=== PATIENT | male | born 1950 | race Caucasian/White ===

== ENCOUNTER → 2016-11-29 | Outpatient (CLI) | payer OTHER ==
[~2016-11-29] MED LIST: AMLO-110 PO; ASPI-232 PO; CEPH500T PO; CLX20; COEN1CAP17 PO; GLC500 PO; LOSA50TA6 PO; REPA1TAB42 PO; SYN150
== END | disposition home or self-care (01) ==
LOC: C.RDSM 08:00
PROVIDERS: ATTEND Orthopaedic Surgery
DX: Z09 Encounter for follow-up examination after completed treatment for conditions other than malignant neoplasm (principal); M79.641 Pain in right hand

== ENCOUNTER → 2017-02-11 | Outpatient (CLI) | payer OTHER ==
[~2017-02-11] MED LIST changes: +REPA1TAB26 PO; -REPA1TAB42 PO
[2017-02-11 13:24] LABS: ESTIMATED AVERAGE GLUCOSE 143 mg/dl; HA1C FLAG Normal (Normal)
== END | disposition home or self-care (01) ==
LOC: C.LABBFT 10:48
PROVIDERS: ATTEND Internal Medicine Endocrinology, Diabetes & Metabolism
DX: E11.9 Type 2 diabetes mellitus without complications (principal)

== ENCOUNTER → 2017-05-02 | Outpatient (CLI) | payer OTHER ==
[2017-05-02 12:34] LABS: CALCIUM 8.8 mg/dl (8.5-10.1)
[2017-05-02 12:37] LABS: ALT/SGPT 42 U/L (12-78); AST/SGOT 16 U/L (15-37); BLOOD UREA NITROGEN 14 mg/dl (7-18); BUN/CREATININE RATIO 13.8 (10-20); CARBON DIOXIDE 28 mmol/L (21-32); CHLORIDE 108 mmol/L (98-107); CREATININE 0.98 mg/dl (0.60-1.40); GLUCOSE 151 mg/dl (70-99); POTASSIUM 4.2 mmol/L (3.5-5.1); SODIUM 141 mmol/L (136-145)
[2017-05-02 12:40] LABS: ALB/GLOB RATIO 1.3 (0.9-2); ALKALINE PHOSPHATASE 61 U/L (45-117); CHOLESTEROL 110 mg/dl (0-200); CHOLESTEROL/HDL RATIO 3.9; HDL CHOLESTEROL 28 mg/dl; LDL CHOLESTEROL CALCULATED 50 mg/dl; TRIGLYCERIDES 159 mg/dl (0-150); VERY LOW DENSITY LIPOPROT CALC 32 mg/dl
[2017-05-02 12:41] LABS: ESTIMATED AVERAGE GLUCOSE 163 mg/dl; HA1C FLAG Normal (Normal)
--- NOTE | 2017-05-07 08:42 | CODING QUERY MEDICAL NECESSITY ---
SUPPORTING DIAGNOSIS NEEDED A supporting diagnosis is required for the test/procedure performed on this patient in order for us to be reimbursed by the patient's insurance. Please provide a supporting diagnosis for the following test/procedure listed below next to the test name along with your signature. *If there is no additional diagnosis for this patient that would support the following test/procedure please document that below next to the test/procedure. Test(s)/Procedure(s) that require a supporting diagnosis: * VITAMIN D, 25-HYDROXY DIAGNOSIS: Provider Signature: Date: Thank you Sarahy Castellanos [email or web address] Information Management Once completed, please kindly fax back to [phone] For questions please call [phone]
== END | disposition home or self-care (01) ==
LOC: C.LABBFT 08:46
PROVIDERS: ATTEND Nurse Practitioner Family
DX: E11.9 Type 2 diabetes mellitus without complications (principal); E55.9 Vitamin D deficiency, unspecified

== ENCOUNTER → 2017-08-05 | Outpatient (CLI) | payer OTHER ==
[~2017-08-05] MED LIST changes: -REPA1TAB26 PO; +REPA1TAB42 PO
[2017-08-06 05:45] LABS: ESTIMATED AVERAGE GLUCOSE 151 mg/dl; HA1C FLAG Normal (Normal)
== END | disposition home or self-care (01) ==
LOC: C.LABBFT 15:34
PROVIDERS: ATTEND Nurse Practitioner Family
DX: E11.9 Type 2 diabetes mellitus without complications (principal)

== ENCOUNTER → 2017-11-29 | Outpatient (CLI) | payer OTHER ==
[~2017-11-29] MED LIST changes: +REPA1TAB26 PO; -REPA1TAB42 PO
[2017-11-29 12:52] LABS: HEMOGLOBIN A1C 6.9 % (4.5-5.6)
== END | disposition home or self-care (01) ==
LOC: C.LABBFT 09:26
PROVIDERS: ATTEND Nurse Practitioner Family
DX: E11.9 Type 2 diabetes mellitus without complications (principal)

== ENCOUNTER 2018-02-16 11:53 | Observation (INO) | payer OTHER ==
[~2018-02-16] VITALS: Ht 177.8 cm; Wt 96.5 kg
[~2018-02-16 11:53] MED LIST changes: -CLX20; +CLX20 PO
--- NOTE | 2018-02-16 12:28 | EMERGENCY ROOM VISIT NOTE ---
History Report prepared by Renee: Ethan Mccracken Under the Supervision of: Dr. Raúl De Jseus M.D. First contact with patient: 12:04 Chief Complaint: WEAKNESS Stated Complaint: WEAKNESS,NO ENERGY,UNSTEADY,NUMBNESS IN L ARM Nursing Triage Summary: pt to the ED with c/o exhausted weakness all over and numbness left arm for 4 days c/o pain all over with esphageal spasms History of Present Illness The patient is a 67 year old male who presents to the Emergency Room with complaints of constant generalized weakness and fatigue beginning 8 months ago. The patient notes that he saw his PCP last week where he had a blood test performed. He states that his PCP suggested that he visit a sleep clinic. The patient reports chest pain. Pain is located substernally, moderate nature. He believes the chest pain is possibly due to esophageal spasms which worsen when he takes antiinflammatory drugs such as Aleve. The patient reports some mild shortness of breath, needing to take deep breaths. He denies any blood in his stool or urine or any recent falls. The patient notes a history of diabetes and arthritis. Source of History: patient Onset: 8 months ago Position: other (global) Quality: other (weakness) Timing: constant Modifying Factors (Worsening): other Associated Symptoms: No chest pain, No SOB, No melena Note: Associated Symptoms: esophageal spasms, deep "sighing" breaths. Denies: Blood in urine, any recent falls. Review of Systems See HPI for pertinent positives and negatives. A total of ten systems were reviewed and were otherwise negative. Past Medical & Surgical Medical Problems: (1) Chest pain (2) Diabetic peripheral neuropathy associated with type 2 diabetes mellitus (3) Dysesthesia (4) History of diabetic ulcer of foot Family History FH: HTN (hypertension) FH: cancer FH: diabetes mellitus FH: kidney disease Social History Marital Status: Occupation Status: employed, retired Current/Historical Medications Scheduled Aspirin (Aspir-81), 81 MG PO HS Atorvastatin (Lipitor), 20 MG PO HS Cholecalciferol (Vitamin D3), 1 TAB PO QAM Citalopram (Citalopram Hydrobromide), 20 MG PO QAM Coenzyme Q10 (Ubidecarenone) (Co Q 10), 200 MG PO QAM Insulin Aspart 70/30 (Novolog Mix 70/30), 0 SC BIDM Levothyroxine Sodium (Levothyroxine Sodium), 1 TAB PO QAM Losartan Potassium (Cozaar), 50 MG PO HS Metformin HCL (Glucophage *), 1,000 MG PO BIDM Vitamin B Cmplx/Vitc/Folic Ac (Nephrocaps), 1 CAP PO QAM Allergies Coded Allergies: Sulfa Drugs (Verified Allergy, Intermediate, HIVES, 02/16/18) Physical Exam Vital Signs Date Time Temp Pulse Resp B/P (MAP) Pulse Ox O2 Delivery O2 Flow Rate FiO2 02/16/18 15:01 75 163/103 96 Room Air 02/16/18 13:35 64 151/86 96 Room Air 02/16/18 11:55 36.5 73 20 166/101 96 Physical Exam Physical Exam GENERAL: He is oriented to person, place, and time. He appears well-developed and well-nourished. He does not appear distressed. ____ HENT: Exam performed. Head: Normocephalic and atraumatic. Right Ear: External ear normal. No mastoid tenderness. Left Ear: External ear normal. No mastoid tenderness. Mouth/Throat: The oropharynx is clear and moist. No trismus in the jaw. No dental abscesses or uvula swelling. No oropharyngeal exudate or tonsillar abscesses. ____ EYES: Conjunctivae and EOM are normal. Pupils are equal, round, and reactive to light. Right eye exhibits no discharge. Left eye exhibits no discharge. No scleral icterus. ____ NECK: Normal range of motion. Neck supple. No JVD present. No spinous process tenderness present. No carotid bruit present. No rigidity. No tracheal deviation and normal range of motion present. No Brudzinski's sign and no Kernig 's sign noted. ____ CV: Normal rate, regular rhythm, normal heart sounds and intact distal pulses. There is no peripheral edema. Palpable radial pulses bue. ____ PULM/CHEST: Effort normal and breath sounds normal. No respiratory distress. No stridor. He has no wheezes. He has no rales. Chest Wall: He exhibits no tenderness. ____ ABD: The abdomen is soft. Bowel sounds are normal. He has no distension. No mass is present. There is no tenderness. There is no rebound, no guarding, no Rodriges's sign and no tenderness at McBurney's point. Rovsig negative MUSC/SKEL: Normal range of motion. There is no peripheral edema, tenderness or deformity. LYMPH: No cervical adenopathy. ____ NEURO: He is alert and oriented to person, place, and time. He has normal strength. No cranial nerve deficit or sensory deficit. Coordination and gait normal. GCS eye subscore is 4. GCS verbal subscore is 5. GCS motor subscore is 6. Cerebellar tests wnl. ____ SKIN: Skin is warm and dry. He is not diaphoretic. ____ PSYCH: He has a normal mood and affect. His behavior is normal. Judgment and thought content normal. ____ Medical Decision & Procedures ER Provider Diagnostic Interpretation: CT HEAD WITHOUT CONTRAST (CT) CLINICAL HISTORY: Weakness, fatigue, left arm numbness. COMPARISON STUDY: No previous studies for comparison. TECHNIQUE: Axial CT of the brain is performed from the vertex to the skull base. IV contrast was not administered for this examination. A dose lowering technique was utilized adhering to the principles of ALARA. CT DOSE: 687.98 mGy.cm FINDINGS: No intra or extra-axial mass lesions are visualized. There is no CT evidence of acute cortical infarction. There is no evidence of midline shift. There is no acute hemorrhage. No calvarial fractures are visualized. There is no evidence of pathologic ventricular dilatation. There is no evidence of acute sinusitis IMPRESSION: No acute intracranial findings CHEST 2 VIEWS ROUTINE CLINICAL HISTORY: weakness COMPARISON STUDY: December 2007 FINDINGS: The cardiac and mediastinal contours are normal. There is no evidence of focal pulmonary consolidation. There is no evidence of failure. No pleural effusions are visualized.[ IMPRESSION: No active disease in the chest. Electronically signed by: Juan Miguel Cordova M.D. 02/16/2018 2:31 PM Dictated Date/Time: 02/16/2018 2:31 PM Laboratory Results 02/16/18 12:40 Red Blood Count 5.02, Mean Corpuscular Volume 84.7, Mean Corpuscular Hemoglobin 30.5, Mean Corpuscular Hemoglobin Concent 36.0, Mean Platelet Volume 10.7, Neutrophils (%) (Auto) 59.9, Lymphocytes (%) (Auto) 29.3, Monocytes (%) (Auto) 6.9, Eosinophils (%) (Auto) 3.2, Basophils (%) (Auto) 0.5, Neutrophils # (Auto) 3.54, Lymphocytes # (Auto) 1.73, Monocytes # (Auto) 0.41, Eosinophils # (Auto) 0.19, Basophils # (Auto) 0.03 02/16/18 12:40 Test 02/16/18 12:31 02/16/18 12:40 02/16/18 12:59 Influenza Type A Antigen Neg for Influ A (NEG) Influenza Type B Antigen Neg for Influ B (NEG) White Blood Count 5.91 K/uL (4.8-10.8) Red Blood Count 5.02 M/uL (4.7-6.1) Hemoglobin 15.3 g/dL (14.0-18.0) Hematocrit 42.5 % (42-52) Mean Corpuscular Volume 84.7 fL (80-100) Mean Corpuscular Hemoglobin 30.5 pg (25-34) Mean Corpuscular Hemoglobin Concent 36.0 g/dl (32-36) Platelet Count 207 K/uL (130-400) Mean Platelet Volume 10.7 fL (7.4-10.4) Neutrophils (%) (Auto) 59.9 % Lymphocytes (%) (Auto) 29.3 % Monocytes (%) (Auto) 6.9 % Eosinophils (%) (Auto) 3.2 % Basophils (%) (Auto) 0.5 % Neutrophils # (Auto) 3.54 K/uL (1.4-6.5) Lymphocytes # (Auto) 1.73 K/uL (1.2-3.4) Monocytes # (Auto) 0.41 K/uL (0.11-0.59) Eosinophils # (Auto) 0.19 K/uL (0-0.5) Basophils # (Auto) 0.03 K/uL (0-0.2) RDW Standard Deviation 39.5 fL (36.4-46.3) RDW Coefficient of Variation 12.8 % (11.5-14.5) Immature Granulocyte % (Auto) 0.2 % Immature Granulocyte # (Auto) 0.01 K/uL (0.00-0.02) Anion Gap 9.0 mmol/L (3-11) Est Creatinine Clear Calc Drug Dose 89.8 ml/min Estimated GFR () 96.3 Estimated GFR (Non- 83.1 BUN/Creatinine Ratio 11.4 (10-20) Lactic Acid Level 1.1 mmol/L (0.4-2.0) Calcium Level 8.4 mg/dl (8.5-10.1) Magnesium Level 2.0 mg/dl (1.8-2.4) Total Bilirubin 1.4 mg/dl (0.2-1) Direct Bilirubin 0.2 mg/dl (0-0.2) Aspartate Amino Transf (AST/SGOT) 23 U/L (15-37) Alanine Aminotransferase (ALT/SGPT) 49 U/L (12-78) Alkaline Phosphatase 61 U/L (45-117) Total Protein 7.0 gm/dl (6.4-8.2) Albumin 3.9 gm/dl (3.4-5.0) Lipase 75 U/L (73-393) Thyroid Stimulating Hormone (TSH) 0.324 uIu/ml (0.300-4.500) Salicylates Level < 1.7 mg/dl (2.8-20) Acetaminophen Level < 2 ug/ml (10-30) Lyme Disease IgG Antibody NEG (NEG) Lyme Disease IgM Antibody NEG (NEG) Venous Blood pH 7.45 (7.36-7.41) Venous Blood Partial Pressure CO2 37 mmHg (38.0-50.0) Venous Blood Partial Pressure O2 53 mmHg Venous Blood HCO3 25 mmol/L Venous Blood Oxygen Saturation 86.8 % Venous Blood Base Excess 1.4 mEq/L Laboratory results reviewed by me ECG Per My Interpretation Indication: weakness Rate (beats per minute): 62 Findings: other (pr, qrs, and qtc intervals within normal limits. No ST elevation or depression. ) ED Course 1215: The patient was evaluated in room C08. A complete history and physical exam was performed. 1428: Vital signs stable. Labs and EKG within normal limits. Imaging within normal limits. Given the patient's reporting the chest pain and his advanced age as well as comorbidities and him not having a stress test recently, the patient will be placed in the hospital for rule out ACS. I discussed the patient's case with Dr. [facility] Hospitalist. He agrees to admit the patient. Medical Decision Vital signs stable. Labs and EKG within normal limits. Imaging within normal limits. Given the patient's reporting the chest pain and his advanced age as well as comorbidities and him not having a stress test recently, the patient will be placed in the hospital for rule out ACS. I discussed the patient's case with Dr. Patricia Casillas. He agrees to admit the patient. Medication Reconcilliation Current Medication List: was personally reviewed by me Blood Pressure Screening Patient's blood pressure: Elevated blood pressure Blood pressure disposition: Referred to PCP Consults Time Called: 1420 Consulting Physician: Dr. Patricia Casillas Returned Call: 1428 I discussed the patient's case with Dr. Patricia Casillas. He agrees to admit the patient. Impression Primary Impression: Chest pain, unspecified Additional Impression: Lethargy Scribe Attestation The scribe's documentation has been prepared under my direction and personally reviewed by me in its entirety. I confirm that the note above accurately reflects all work, treatment, procedures, and medical decision making performed by me. The chart was completed utilizing [employer] Speech voice recognition software. Grammatical errors, random word insertions, pronoun errors, and incomplete sentences are an occasional consequence of this system due to software limitations, ambient noise, and hardware issues. Any formal questions or concerns about the content, text, or information contained within the body of this dictation should be directly addressed to the physician for clarification. Departure Information Dispostion Being Evaluated By Surgeon Referrals Damien Moise M.D. (MEDICAL) (PCP) Patient Instructions My [facility] Problem Qualifiers Primary Impression: Chest pain, unspecified Chest pain type: unspecified Qualified Codes: R07.9 - Chest pain, unspecified
[2018-02-16 12:57] LABS: BASO % 0.5 %; BASO ABS # 0.03 K/uL (0-0.2); EOS % 3.2 %; EOS ABS # 0.19 K/uL (0-0.5); HEMATOCRIT 42.5 % (42-52); HEMOGLOBIN 15.3 g/dL (14.0-18.0); IG# 0.01 K/uL (0.00-0.02); LYMPH % 29.3 %; LYMPH ABS # 1.73 K/uL (1.2-3.4); MEAN CELL VOLUME 84.7 fL (80-100); MEAN CORPUSCULAR HEMOGLOBIN 30.5 pg (25-34); MEAN PLATELET VOLUME 10.7 fL (7.4-10.4); MONO % 6.9 %; MONO ABS # 0.41 K/uL (0.11-0.59); NEUT % 59.9 %; NEUT ABS # 3.54 K/uL (1.4-6.5); PLATELET COUNT 207 K/uL (130-400); RED CELL DISTRIBUTION WIDTH CV 12.8 % (11.5-14.5); RED CELL DISTRIBUTION WIDTH SD 39.5 fL (36.4-46.3); WHITE BLOOD COUNT 5.91 K/uL (4.8-10.8)
[2018-02-16 13:02] LABS: INFLUENZA B ANTIGEN Neg for Influ B (NEG)
[2018-02-16 13:14] LABS: ALBUMIN 3.9 gm/dl (3.4-5.0); ALT/SGPT 49 U/L (12-78); BLOOD UREA NITROGEN 11 mg/dl (7-18); CALCIUM 8.4 mg/dl (8.5-10.1); CARBON DIOXIDE 24 mmol/L (21-32); CREATININE 0.95 mg/dl (0.60-1.40); GLUCOSE 141 mg/dl (70-99); LIPASE 75 U/L (73-393); SODIUM 139 mmol/L (136-145)
[2018-02-16 13:19] LABS: ALKALINE PHOSPHATASE 61 U/L (45-117); AST/SGOT 23 U/L (15-37)
--- NOTE | 2018-02-16 13:22 | DIAGNOSTIC IMAGING REPORT ---
CT HEAD WITHOUT CONTRAST (CT) CLINICAL HISTORY: Weakness, fatigue, left arm numbness. COMPARISON STUDY: No previous studies for comparison. TECHNIQUE: Axial CT of the brain is performed from the vertex to the skull base. IV contrast was not administered for this examination. A dose lowering technique was utilized adhering to the principles of ALARA. CT DOSE: 687.98 mGy.cm FINDINGS: No intra or extra-axial mass lesions are visualized. There is no CT evidence of acute cortical infarction. There is no evidence of midline shift. There is no acute hemorrhage. No calvarial fractures are visualized. There is no evidence of pathologic ventricular dilatation. There is no evidence of acute sinusitis IMPRESSION: No acute intracranial findings Electronically signed by: Juan Miguel Cordova M.D. 02/16/2018 1:21 PM Dictated Date/Time: 02/16/2018 1:20 PM
[2018-02-16] MEDS ORDERED: CHOL1000 PO (13:48)
[2018-02-16] MEDS ORDERED: LEVO137T3 PO (13:48)
[2018-02-16] MEDS ORDERED: ATOR-22 PO (13:48)
[2018-02-16] MEDS ORDERED: B-CO1CAP17 PO (13:48)
[2018-02-16] MEDS ORDERED: NVLGI7030 SC (13:49)
--- NOTE | 2018-02-16 14:32 | DIAGNOSTIC IMAGING REPORT ---
CHEST 2 VIEWS ROUTINE CLINICAL HISTORY: weakness COMPARISON STUDY: December 2007 FINDINGS: The cardiac and mediastinal contours are normal. There is no evidence of focal pulmonary consolidation. There is no evidence of failure. No pleural effusions are visualized.[ IMPRESSION: No active disease in the chest. Electronically signed by: Juan Miguel Cordova M.D. 02/16/2018 2:31 PM Dictated Date/Time: 02/16/2018 2:31 PM
[2018-02-16] MEDS ORDERED: PHARMACY GLYCEMIC MGMT CONSULT STA (15:22)
[2018-02-16] MEDS ORDERED: FENTANYL CITRATE INJ 50 MCG/1 ML 2 ML VIAL IV STA ×2 (15:27→15:47)
[2018-02-16] MEDS ORDERED: GLUCOSE 10 TABS/TUBE PO PRN (15:30)
[2018-02-16] MEDS ORDERED: GLUCOSE 40% GEL 15 GM TUBE PO PRN (15:30)
[2018-02-16] MEDS ORDERED: GLUCAGON FOR INJ 1 MG VIAL SQ PRN (15:30)
[2018-02-16] MEDS ORDERED: DEXTROSE 50% 50 ML SYR IV PRN (15:30)
[2018-02-16] MEDS ORDERED: ONDANSETRON INJ 2 MG/ML 2 ML VIAL IV PRN (15:45)
[2018-02-16] MEDS ORDERED: ACETAMINOPHEN 325 MG TAB PO PRN (15:45)
--- NOTE | 2018-02-16 15:56 | History and Physical ---
History & Physical Date & Time of Service: Feb 16, 2018 at 15:39 Chief Complaint: Weakness,No Energy,Unsteady,Numbness In L Arm Primary Care Physician: Damien Moise M.D. (MEDICAL) History of Present Illness 67-year-old male with diabetes type 2 hypertension hypothyroidism and other problems noted below presenting with chest pain and fatigue. Follows with Dr. Moise for primary care. Patient has been having ongoing fatigue, low energy for the past few months worsening recently. 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 Denies fevers chills, weight loss, decreased appetite. Also reports intermittent chest pain, radiating to his neck/jaws, occurring with exertion and at rest. 2 days ago., Patient woke up with left arm numbness mostly medial left arm. He was at [employer] today and felt extremely fatigued to the point that he could not remain standing for a long time. Hence he was brought to the ER. Vital signs are stable overall. Troponins 1 negative. EKG no signs of acute ischemia ischemia. CT head negative for acute process Chest x-ray no infiltrates Hospitalist consulted for evaluation. On exam the patient is awake alert oriented 3,, comfortable Denies chest pain, shortness of breath, nausea, headache, dizziness. Left arm numbness improving. No other symptoms. Past Medical/Surgical History Medical Problems: (1) Chest pain (2) Diabetic peripheral neuropathy associated with type 2 diabetes mellitus (3) Dysesthesia (4) History of diabetic ulcer of foot Family History FH: HTN (hypertension) FH: cancer FH: diabetes mellitus FH: kidney disease Social History Smoking Status: Former Smoker Alcohol Use: socially Drug Use: none Marital Status: Occupational Status: employed, retired Allergies Coded Allergies: Sulfa Drugs (Verified Allergy, Intermediate, HIVES, 02/16/18) Home Medications Scheduled Aspirin (Aspir-81), 81 MG PO HS Atorvastatin (Lipitor), 20 MG PO HS Cholecalciferol (Vitamin D3), 1 TAB PO QAM Citalopram (Citalopram Hydrobromide), 20 MG PO QAM Coenzyme Q10 (Ubidecarenone) (Co Q 10), 200 MG PO QAM Insulin Aspart 70/30 (Novolog Mix 70/30), 0 SC BIDM Levothyroxine Sodium (Levothyroxine Sodium), 1 TAB PO QAM Losartan Potassium (Cozaar), 50 MG PO HS Metformin HCL (Glucophage *), 1,000 MG PO BIDM Vitamin B Cmplx/Vitc/Folic Ac (Nephrocaps), 1 CAP PO QAM Review of Systems Constitutional- no fever; no weight loss Eyes- no acute visual changes ENT- no sinus drainage; no pharyngitis Pulmonary- no cough, no wheezing, no shortness of breath Cardiac-(+) chest pain, no palpitations, no orthopnea, no dependent edema GI- no nausea, no vomiting, no diarrhea, no melena, no hematochezia - no dysuria, no hematuria Musculoskeletal- no arthralgias, no myalgias Derm- no rashes, no new skin lesions, no changing skin lesions Hematologic- no unusual bruising, no unusual bleeding Lymphatics- no adenopathy Endocrine- no polyuria or polydipsia; no heat or cold intolerance Neuro- no headaches, no focal neurologic symptoms Psych- no anxiety, no depression Physical Exam Vital Signs Date Time Temp Pulse Resp B/P (MAP) Pulse Ox O2 Delivery O2 Flow Rate FiO2 02/16/18 15:01 75 163/103 96 Room Air 02/16/18 13:35 64 151/86 96 Room Air 02/16/18 11:55 36.5 73 20 166/101 96 General Appearance: WD/WN, no apparent distress Head: normocephalic, atraumatic Eyes: normal inspection, PERRL, EOMI, sclerae normal ENT: normal ENT inspection, hearing grossly normal, pharynx normal Neck: supple, no adenopathy, thyroid normal, no JVD, trachea midline Respiratory/Chest: chest non-tender, lungs clear, normal breath sounds, no respiratory distress, no accessory muscle use Cardiovascular: regular rate, rhythm, no edema, no JVD, no murmur, normal peripheral pulses Abdomen/GI: normal bowel sounds, non tender, soft Back: normal inspection, no CVA tenderness Extremities/Musculoskelatal: normal inspection, no calf tenderness, no pedal edema, normal range of motion, non-tender Neurologic/Psych: intelligence consultant II-XII nml as tested, no motor/sensory deficits, alert, normal mood/affect, normal reflexes, oriented x 3 Skin: normal color, warm/dry, no rash Lymphatic: no adenopathy Diagnostics Laboratory Results Results Past 24 Hours Test 02/16/18 12:31 02/16/18 12:40 02/16/18 12:59 Range/Units Influenza Type A Antigen Neg for Influ A NEG Influenza Type B Antigen Neg for Influ B NEG White Blood Count 5.91 4.8-10.8 K/uL Red Blood Count 5.02 4.7-6.1 M/uL Hemoglobin 15.3 14.0-18.0 g/dL Hematocrit 42.5 42-52 % Mean Corpuscular Volume 84.7 80-100 fL Mean Corpuscular Hemoglobin 30.5 25-34 pg Mean Corpuscular Hemoglobin Concent 36.0 32-36 g/dl Platelet Count 207 130-400 K/uL Mean Platelet Volume 10.7 7.4-10.4 fL Neutrophils (%) (Auto) 59.9 % Lymphocytes (%) (Auto) 29.3 % Monocytes (%) (Auto) 6.9 % Eosinophils (%) (Auto) 3.2 % Basophils (%) (Auto) 0.5 % Neutrophils # (Auto) 3.54 1.4-6.5 K/uL Lymphocytes # (Auto) 1.73 1.2-3.4 K/uL Monocytes # (Auto) 0.41 0.11-0.59 K/uL Eosinophils # (Auto) 0.19 0-0.5 K/uL Basophils # (Auto) 0.03 0-0.2 K/uL RDW Standard Deviation 39.5 36.4-46.3 fL RDW Coefficient of Variation 12.8 11.5-14.5 % Immature Granulocyte % (Auto) 0.2 % Immature Granulocyte # (Auto) 0.01 0.00-0.02 K/uL Sodium Level 139 136-145 mmol/L Potassium Level 4.0 3.5-5.1 mmol/L Chloride Level 106 98-107 mmol/L Carbon Dioxide Level 24 21-32 mmol/L Anion Gap 9.0 3-11 mmol/L Blood Urea Nitrogen 11 7-18 mg/dl Creatinine 0.95 0.60-1.40 mg/dl Est Creatinine Clear Calc Drug Dose 89.8 ml/min Estimated GFR () 96.3 Estimated GFR (Non- 83.1 BUN/Creatinine Ratio 11.4 10-20 Random Glucose 141 70-99 mg/dl Lactic Acid Level 1.1 0.4-2.0 mmol/L Calcium Level 8.4 8.5-10.1 mg/dl Magnesium Level 2.0 1.8-2.4 mg/dl Total Bilirubin 1.4 0.2-1 mg/dl Direct Bilirubin 0.2 0-0.2 mg/dl Aspartate Amino Transf (AST/SGOT) 23 15-37 U/L Alanine Aminotransferase (ALT/SGPT) 49 12-78 U/L Alkaline Phosphatase 61 45-117 U/L Troponin I < 0.015 0-0.045 ng/ml Total Protein 7.0 6.4-8.2 gm/dl Albumin 3.9 3.4-5.0 gm/dl Lipase 75 73-393 U/L Thyroid Stimulating Hormone (TSH) 0.324 0.300-4.500 uIu/ml Salicylates Level < 1.7 2.8-20 mg/dl Acetaminophen Level < 2 10-30 ug/ml Venous Blood pH 7.45 7.36-7.41 Venous Blood Partial Pressure CO2 37 38.0-50.0 mmHg Venous Blood Partial Pressure O2 53 mmHg Venous Blood HCO3 25 mmol/L Venous Blood Oxygen Saturation 86.8 % Venous Blood Base Excess 1.4 mEq/L Diagnostic Radiology CHEST 2 VIEWS ROUTINE CLINICAL HISTORY: weakness COMPARISON STUDY: December 2007 FINDINGS: The cardiac and mediastinal contours are normal. There is no evidence of focal pulmonary consolidation. There is no evidence of failure. No pleural effusions are visualized.[ IMPRESSION: No active disease in the chest. [~ rep ct add3]] CT HEAD WITHOUT CONTRAST (CT) CLINICAL HISTORY: Weakness, fatigue, left arm numbness. COMPARISON STUDY: No previous studies for comparison. TECHNIQUE: Axial CT of the brain is performed from the vertex to the skull base. IV contrast was not administered for this examination. A dose lowering technique was utilized adhering to the principles of ALARA. CT DOSE: 687.98 mGy.cm FINDINGS: No intra or extra-axial mass lesions are visualized. There is no CT evidence of acute cortical infarction. There is no evidence of midline shift. There is no acute hemorrhage. No calvarial fractures are visualized. There is no evidence of pathologic ventricular dilatation. There is no evidence of acute sinusitis IMPRESSION: No acute intracranial findings EKG Sinus rhythm, normal rate, no signs of ischemia or infarct Impression Assessment and Plan 67-year-old male with history of diabetes type 2, hypertension, hypothyroidism, Presenting with fatigue and chest pain. CHEST PAIN RULE OUT ACS Risk factors: Diabetes, hypertension, former smoker Check troponins 2 more sets Check echocardiogram We will consult cardiology for possible stress test, patient may need a pharmacologic stress test as he has easy fatigability Continue aspirin, Lipitor FATIGUE Ongoing for a few months now No anemia, no signs of active infection or fever Rule out NOCTURNAL HYPOXEMIA Nocturnal pulse oximetry ordered Rule out hypothyroidism Check TSH Lyme disease Check Lyme screen DIABETES TYPE 2 Check A1c Usually on NovoLog 7030 40 units twice daily, metformin 500 twice daily-hold for now Place on insulin sliding scale Pharmacy glycemic control management consulted HYPERTENSION Stable Continue losartan 50 mg daily ANXIETY Continue citalopram 20 mg daily DVT prophylaxis SCDs for now CODE STATUS full code Disposition Pending Lives with at home Anticipate discharge home medically stable, cleared by cardiology Resuscitation Status VTE Prophylaxis Will order VTE Prophylaxis: Yes
[2018-02-16 16:41] VITALS: BP 157/87; PULSE 66; TEMP 36.6; O2SAT 96; Ht 177.8 cm; Wt 96.5 kg
[2018-02-16] MEDS ORDERED: IV FLUIDS COMPLETED PRN (17:45)
[2018-02-16] MEDS ORDERED: PHARMACY GLYCEMIC MGMT CONSULT PRN (18:00)
[2018-02-16 19:03] VITALS: BP 151/67; PULSE 68; TEMP 36.7; O2SAT 95
[2018-02-16] MEDS ORDERED: LOSARTAN POTASSIUM 50 MG TAB PO SCH (21:00)
[2018-02-16] MEDS ORDERED: ASPIRIN 81 MG ECTAB PO SCH (21:00)
[2018-02-16] MEDS ORDERED: ATORVASTATIN 20 MG TAB PO SCH (21:00)
[2018-02-16] MEDS ORDERED: INSULIN GLARGINE SOLOSTAR 100 UNITS/ML 3 ML PEN SC SCH ×3 (21:00)
[2018-02-16] MEDS: INSULIN ASPART 100 UNITS/ML 3 ML PEN SC SCH (21:00)
[2018-02-16 23:58] VITALS: BP 154/79; PULSE 66; TEMP 36.8; O2SAT 98
[2018-02-17 04:21] VITALS: BP 136/73; PULSE 60; TEMP 36.6; O2SAT 97
[2018-02-17 05:21] LABS: ALBUMIN 3.5 gm/dl (3.4-5.0); TOTAL PROTEIN 6.6 gm/dl (6.4-8.2)
[2018-02-17] MEDS ORDERED: LEVOTHYROXINE 137 MCG TAB PO SCH (06:30)
[2018-02-17 06:56] LABS: HEMOGLOBIN A1C 7.8 % (4.5-5.6)
[2018-02-17 07:32] VITALS: BP 159/88; PULSE 60; TEMP 36.4; O2SAT 97
[2018-02-17 08:00] VITALS: O2SAT 97
[2018-02-17 08:46] LABS: CALCIUM 8.7 mg/dl (8.5-10.1); CREATININE 1.01 mg/dl (0.60-1.40); POTASSIUM 4.1 mmol/L (3.5-5.1)
[2018-02-17] MEDS ORDERED: NEPHROCAPS PO SCH (09:00)
[2018-02-17] MEDS ORDERED: CITALOPRAM 20 MG TAB PO SCH (09:00)
[2018-02-17] MEDS ORDERED: INSULIN GLARGINE SOLOSTAR 100 UNITS/ML 3 ML PEN SC SCH (09:45)
--- NOTE | 2018-02-17 09:45 | Progress Note ---
Medicine Progress Note Date & Time of Visit: Feb 17, 2018 at 09:40. Subjective seen resting in bedside chair, comfortable states he feels the same, still tired denies active chest pain, dyspnea, dizziness, nausea, palpitations no fever/chills, no other symptoms Objective Last 8 Hrs Date Time Temp Pulse Resp B/P (MAP) Pulse Ox O2 Delivery O2 Flow Rate FiO2 02/17/18 07:32 36.4 60 18 159/88 (111) 97 02/17/18 04:30 Room Air 02/17/18 04:21 36.6 60 18 136/73 (94) 97 Room Air Physical Exam: General- oriented x 3, not in distress, speaks in sentences with no effort Eyes- anicteric ENT- oropharynx clear Neck- no JVD Lungs- clear breath sounds bilaterally, no rales/wheezes Heart- regular rhythm; no murmur, normal rate Abdomen- normal bowel sounds, soft, nontender,non distended Extremities- no pretibial edema, no calf tenderness; peripheral pulses intact Neuro- alert, oriented x 3; no gross focal deficits Skin- warm & dry Laboratory Results: Last 24 Hours Test 02/16/18 12:31 02/16/18 12:40 02/16/18 12:59 02/16/18 16:47 Influenza Type A Antigen Neg for Influ A Influenza Type B Antigen Neg for Influ B White Blood Count 5.91 K/uL Red Blood Count 5.02 M/uL Hemoglobin 15.3 g/dL Hematocrit 42.5 % Mean Corpuscular Volume 84.7 fL Mean Corpuscular Hemoglobin 30.5 pg Mean Corpuscular Hemoglobin Concent 36.0 g/dl Platelet Count 207 K/uL Mean Platelet Volume 10.7 fL Neutrophils (%) (Auto) 59.9 % Lymphocytes (%) (Auto) 29.3 % Monocytes (%) (Auto) 6.9 % Eosinophils (%) (Auto) 3.2 % Basophils (%) (Auto) 0.5 % Neutrophils # (Auto) 3.54 K/uL Lymphocytes # (Auto) 1.73 K/uL Monocytes # (Auto) 0.41 K/uL Eosinophils # (Auto) 0.19 K/uL Basophils # (Auto) 0.03 K/uL RDW Standard Deviation 39.5 fL RDW Coefficient of Variation 12.8 % Immature Granulocyte % (Auto) 0.2 % Immature Granulocyte # (Auto) 0.01 K/uL Sodium Level 139 mmol/L Potassium Level 4.0 mmol/L Chloride Level 106 mmol/L Carbon Dioxide Level 24 mmol/L Anion Gap 9.0 mmol/L Blood Urea Nitrogen 11 mg/dl Creatinine 0.95 mg/dl Est Creatinine Clear Calc Drug Dose 89.8 ml/min Estimated GFR () 96.3 Estimated GFR (Non- 83.1 BUN/Creatinine Ratio 11.4 Random Glucose 141 mg/dl Lactic Acid Level 1.1 mmol/L Calcium Level 8.4 mg/dl Magnesium Level 2.0 mg/dl Total Bilirubin 1.4 mg/dl Direct Bilirubin 0.2 mg/dl Aspartate Amino Transf (AST/SGOT) 23 U/L Alanine Aminotransferase (ALT/SGPT) 49 U/L Alkaline Phosphatase 61 U/L Troponin I < 0.015 ng/ml Total Protein 7.0 gm/dl Albumin 3.9 gm/dl Lipase 75 U/L Thyroid Stimulating Hormone (TSH) 0.324 uIu/ml Salicylates Level < 1.7 mg/dl Acetaminophen Level < 2 ug/ml Lyme Disease IgG Antibody NEG Lyme Disease IgM Antibody NEG Venous Blood pH 7.45 Venous Blood Partial Pressure CO2 37 mmHg Venous Blood Partial Pressure O2 53 mmHg Venous Blood HCO3 25 mmol/L Venous Blood Oxygen Saturation 86.8 % Venous Blood Base Excess 1.4 mEq/L Bedside Glucose 122 mg/dl Test 02/16/18 18:25 02/16/18 19:56 02/17/18 00:00 02/17/18 00:21 Troponin I < 0.015 ng/ml < 0.015 ng/ml Bedside Glucose 173 mg/dl Urine Color YELLOW Urine Appearance CLEAR Urine pH 6.5 Urine Specific [employer] 1.019 Urine Protein NEG Urine Glucose (UA) NEG Urine Ketones NEG Urine Occult Blood NEG Urine Nitrite NEG Urine Bilirubin NEG Urine Urobilinogen NEG Urine Leukocyte Esterase NEG Test 02/17/18 04:39 02/17/18 07:15 02/17/18 08:03 02/17/18 09:26 Estimated Average Glucose 177 mg/dl Hemoglobin A1c 7.8 % Total Bilirubin 1.8 mg/dl Direct Bilirubin 0.3 mg/dl Aspartate Amino Transf (AST/SGOT) 23 U/L Alanine Aminotransferase (ALT/SGPT) 49 U/L Alkaline Phosphatase 59 U/L Total Protein 6.6 gm/dl Albumin 3.5 gm/dl 25-Hydroxy Vitamin D Total 20.5 ng/ml Bedside Glucose 151 mg/dl Sodium Level 137 mmol/L Potassium Level 4.1 mmol/L Chloride Level 105 mmol/L Carbon Dioxide Level 24 mmol/L Anion Gap 8.0 mmol/L Blood Urea Nitrogen 13 mg/dl Creatinine 1.01 mg/dl Est Creatinine Clear Calc Drug Dose 83.9 ml/min Estimated GFR () 89.4 Estimated GFR (Non- 77.1 BUN/Creatinine Ratio 12.6 Random Glucose 166 mg/dl Calcium Level 8.7 mg/dl Assessment & Plan 67-year-old male with history of diabetes type 2, hypertension, hypothyroidism, Presenting with fatigue and chest pain. CHEST PAIN ACUTE CORONARY SYNDROME RULED OUT Risk factors: Diabetes, hypertension, former smoker troponins x 3 negative Status post treadmill exercise stress test negative Cardiology consulted Dr. Parra/ALBA Williamson No further cardiac testing Continue aspirin, Lipitor FATIGUE Ongoing for a few months now No anemia, no signs of active infection or fever Possible FREDRICK Nocturnal Hypoxemia ruled out Nocturnal pulse oximetry ordered: does not meet criteria for oxygen supplement overnight scheduled of Sleep Study in April 2018, will be helpful if patient can get an earlier scheduled for the sleep study Hypothyroidism ruled out History of Thyroidectomy, on Levothyroxine 137 mcg daily TSH and free T4 normal Lyme disease ruled out Lyme screen negative Possible related to Celexa? Patient is on Celexa 20 mg p.o. daily May need to transition him to another medication for mood He may also need testosterone level studies Possible workup for underlying malignancy as well although patient not reporting weight loss, anorexia, fevers, night sweats DIABETES TYPE 2 a1c: 7.8 Usually on NovoLog 7030 40 units twice daily, metformin 500 twice daily-hold for now Pharmacy glycemic control management consulted Continue outpatient monitoring and further management HYPERTENSION Stable Losartan 50 mg daily ANXIETY Question whether chronic fatigue may be secondary to Celexa Patient is on Celexa 20 mg p.o. daily May need to transition him to another medication for mood VITAMIN D DEFICIENCY Vitamin D level 20 Increase vitamin D to 2000 units daily Repeat in 4 weeks Disposition Discharge home today Follow-up with primary care physician on February Current Inpatient Medications: Current Inpatient Medications Medications (Trade) Dose Ordered Sig/Tuyet Route Start Time Stop Time Status Last Admin Dose Admin Insulin Aspart (novoLOG ASPART) SLIDING SCALE If C... ACHS SC 02/16/18 16:30 03/18/18 16:29 Glucose (Glucose 40% Gel) 15-30 GRAMS 15 GRAMS... UD PRN PO 02/16/18 15:30 03/18/18 15:29 Glucose (Glucose Chew Tab) 4-8 Tablets 4 Tabl... UD PRN PO 02/16/18 15:30 03/18/18 15:29 Dextrose (Dextrose 50% 50ML Syringe) 25-50ML OF 50% DW IV FOR... UD PRN IV 02/16/18 15:30 03/18/18 15:29 Glucagon (Glucagon Inj) 1 mg UD PRN SQ 02/16/18 15:30 03/18/18 15:29 Aspirin (Ecotrin Tab) 81 mg HS PO 02/16/18 21:00 03/18/18 20:59 02/16/18 21:07 81 MG Atorvastatin Calcium (Lipitor Tab) 20 mg HS PO 02/16/18 21:00 03/18/18 20:59 02/16/18 21:07 20 MG Citalopram Hydrobromide (celeXA TAB) 20 mg QAM PO 02/17/18 09:00 03/19/18 08:59 Levothyroxine Sodium (Synthroid Tab) 137 mcg DAILYBB PO 02/17/18 06:30 03/19/18 06:59 02/17/18 05:53 137 MCG Losartan Potassium (coZAAR TAB) 50 mg HS PO 02/16/18 21:00 03/18/18 20:59 02/16/18 21:07 50 MG Vitamin B Complex/ Vit C/Folic Acid (Nephrocaps) 1 cap QAM PO 02/17/18 09:00 03/19/18 08:59 Acetaminophen (Tylenol Tab) 650 mg Q4H PRN PO 02/16/18 15:45 03/18/18 15:44 Ondansetron HCl (Zofran Inj) 4 mg Q6H PRN IV 02/16/18 15:45 03/18/18 15:44 Miscellaneous (Iv Fluids Completed) 1 ea PRN PRN N/A 02/16/18 17:45 02/16/19 17:44 Miscellaneous Information (Consult Glycemic Management Pharmacy) 1 ea UD PRN N/A 02/16/18 18:00 03/18/18 17:59 Insulin Glargine (Lantus Solostar Pen) BID SC 02/17/18 09:45 03/19/18 09:44
[2018-02-17] MEDS ORDERED: INSULIN GLARGINE SOLOSTAR 100 UNITS/ML 3 ML PEN SC STA (09:47)
[2018-02-17] MEDS: INSULIN ASPART 100 UNITS/ML 3 ML PEN SC SCH (10:00)
--- NOTE | 2018-02-17 10:16 | Pharmacy Progress Note ---
Glycemic Control Intl Consult Date of Service Feb 17, 2018. Scope Glycemic Pharmacist consulted by Dr Gomez on 02/17/18 for glycemic control and to write orders per [facility] inpatient glycemic control protocol Objective Weight (Kilograms): 96.500 Accuchecks BSG (last 24hrs): Test 02/16/18 12:40 02/16/18 16:47 02/16/18 19:56 02/17/18 07:15 Random Glucose 141 mg/dl (70-99) Bedside Glucose 122 mg/dl (70-99) 173 mg/dl (70-99) 151 mg/dl (70-99) Test 02/17/18 08:03 Random Glucose 166 mg/dl (70-99) Laboratory Data (last 24hrs) Test 02/16/18 12:40 02/17/18 04:39 02/17/18 08:03 Anion Gap 9.0 mmol/L 8.0 mmol/L BUN/Creatinine Ratio 11.4 12.6 Blood Urea Nitrogen 11 mg/dl 13 mg/dl Creatinine 0.95 mg/dl 1.01 mg/dl Potassium Level 4.0 mmol/L 4.1 mmol/L Sodium Level 139 mmol/L 137 mmol/L White Blood Count 5.91 K/uL Red Blood Count 5.02 M/uL Hemoglobin 15.3 g/dL Hematocrit 42.5 % Mean Corpuscular Volume 84.7 fL Mean Corpuscular Hemoglobin 30.5 pg Mean Corpuscular Hemoglobin Concent 36.0 g/dl Platelet Count 207 K/uL Mean Platelet Volume 10.7 fL Neutrophils (%) (Auto) 59.9 % Lymphocytes (%) (Auto) 29.3 % Monocytes (%) (Auto) 6.9 % Eosinophils (%) (Auto) 3.2 % Basophils (%) (Auto) 0.5 % Neutrophils # (Auto) 3.54 K/uL Lymphocytes # (Auto) 1.73 K/uL Monocytes # (Auto) 0.41 K/uL Eosinophils # (Auto) 0.19 K/uL Basophils # (Auto) 0.03 K/uL Hemoglobin A1c 7.8 % HbA1c Test 02/17/18 04:39 Hemoglobin A1c 7.8 % (4.5-5.6) H Recent Pertinent Medications Outpatient Anti-diabetic Regimen: * Novolog 70/30 40units BID * Metformin 1000mg BIDM * A1c = 7.8 % 02/17/18 The patient is currently receiving: * Basal insulin: Lantus 15units x1 HS of 02/16/18 * Correctional Insulin: Novolog Correction per scale ACHS Goal Range: Low 140 mg/dL - High 180 mg/dL Correction Factor: 25 mg/dL/unit * Prandial insulin: Per carb ratio of 1 unit per 8 grams CHO consumed Assessment & Plan ASSESSMENT: * Mr. Mayberry is a 67yo M p/w chest pxn, r/o ACS. PMHx: DMII, HTN, Hypothyroidism. A1C=7.8%. AM of 02/17/18 he was placed in NPO status for a cardiac stress test. PLAN FOR INPATIENT GLYCEMIC CONTROL: * Outpatient regimen is premixed basal/prandial insulin of Novolog 70/30 mix insulin 40units BID. * Pre-mixed insulin is difficult to titrate since it is already in a fixed distribution of basal:prandial insulin. Continuing pre-mixed insulin for admission typically lead to hypoglycemia d/t changing PO status but rapid acting insulin is unable to be held. * Home regimen will be held for admission per pharmacy consult. Will utilize recommended regimen of SQ basal bolus insulin regimen with Lantus + NovoLog (CF+ CR) * Lantus 10 units given this AM due to NPO status * Lantus scale set for dinner 02/17/18: BSG less than 140 give 15units, BSG greater than or equal to 140 give 18units * Correctional Insulin: Novolog Correction per scale ACHS Goal Range: Low 110 mg/dL - High 140 mg/dL Correction Factor: 25 mg/dL/unit * Prandial insulin: Per carb ratio of 1 unit per 8 grams CHO consumed * Please note that the plan above was derived based on current level of insulin resistance and hospital stress. These recommendations are appropriate for inpatient admission only. Plan of care upon discharge will need to be reassessed to avoid potential outpatient hypo/hyperglycemia. Thank you.
[2018-02-17 11:15] VITALS: BP 132/73; PULSE 69; TEMP 36.9; O2SAT 97
--- NOTE | 2018-02-17 11:46 | Cardiology Consultation ---
Cardiology Consultation Date of Consultation: Feb 17, 2018 Requesting Physician: Dr. Gomez Attending Experimental Box Tester: Dr. Parra (Kortney Williamson PA-C) History of Present Illness Patient is a 67 year old male wiht past history of DM, hypertension, dyslipidemia presenting with concerns regarding progressive fatigue and lack of energy for the last few weeks. He was standing in zoroastrianism yesterday and noted progressive fatigue and had to sit down to rest. No chest pain or SOB. He came to ER for evaluation due to weakness. He also notes intermittent left hand numbness, ongoing for several weeks. He reports intermittent chest tightness, described as substernal discomfort. He attributes this to esophageal spasms and unchanged for many years. No radiation. Not related to activity. He reports having a normal stress test 5+ years ago. He denies history of cardiovascular disease, FL, CHF, arrhythmia or valvular disease. 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 Overall he reports reduced functional capacity over the last few months but denies exertional chest pain or dyspnea. No palpitations or tachypalpitations. No orthopnea, PND or edema. He has been scheduled to see sleep med provider in April for evaluation of FREDRICK. At time of consult, patient feeling well. Denies acute complaints. Worried his lack of stamina/fatigue is cardiac. No current chest pain or SOB. Notes slight tingling of his left hand, unchanged. He believes he can walk on a treadmill, wanting to try and avoid pharmacologic stress test if possible. (Kortney Williamson PA-C) Past Medical/Surgical History Problem List: Medical Problems: (1) Chest pain (2) Diabetic peripheral neuropathy associated with type 2 diabetes mellitus (3) Dysesthesia (4) History of diabetic ulcer of foot 5. Hypertension 6. dyslipidemia 7. Esophageal spasm (Kortney Williamson PA-C) Family History FH: HTN (hypertension) FH: cancer FH: diabetes mellitus FH: kidney disease (Kortney Williamson PA-C) FH: HTN (hypertension) FH: cancer FH: diabetes mellitus FH: kidney disease (Alexis Parra DO) Social History Smoking Status: Former Smoker Alcohol Use: socially Drug Use: none Marital Status: Occupation: employed, retired (Kortney Williamson PA-C) Review Of Systems General: The patient denies weight change, night sweats, fever, chills. Head: The patient denies headache and prior head trauma. Cardiovascular: The patient denies chest pain or chest discomfort, dyspnea on exertion, palpitations, PND, orthopnea, edema, spontaneous shortness of breath, syncope and near syncope. Pulmonary: The patient denies cough, wheeze, pleurisy, hemoptysis, sputum, and excessive snoring. Gastrointestinal: The patient denies nausea, vomiting, diarrhea, constipation, bloating, hematemesis, hematochezia, and abdominal pain. Skin: The patient denies diaphoresis and rash. Musculoskeletal: The patient denies joint pain, joint swelling, myalgia, back pain, neck pain and prior injuries. Neurological: The patient denies prior stroke and seizures (Kortney Williamson PA-C) Allergies Coded Allergies: Sulfa Drugs (Verified Allergy, Intermediate, HIVES, 02/16/18) Medications Reported Home Medications Medications Dose Route/Sig Max Daily Dose Days Date Category Novolog Mix 70/30 (Insulin Aspart Prota 70%/Aspart 30%) Susp 0 SC BIDM 02/16/18 Reported Vitamin D3 (Cholecalciferol) 1,000 Unit Tab 1 Tab PO QAM 02/16/18 Reported Nephrocaps (Vitamin B Complex/Vit C/Folic Acid) Cap 1 Cap PO QAM 02/16/18 Reported Lipitor (Atorvastatin Calcium) 20 Mg Tab 20 Mg PO HS 02/16/18 Reported Levothyroxine Sodium 137 Mcg Tab 1 Tab PO QAM 02/16/18 Reported Aspir-81 (Aspirin) 81 Mg Tab 81 Mg PO HS 01/06/14 Reported Co Q 10 (Coenzyme Q10 (Ubidecarenone)) 100 Mg Cap 200 Mg PO QAM 01/06/14 Reported Citalopram Hydrobromide (Citalopram) 20 Mg Tab 20 Mg PO QAM 01/06/14 Reported Cozaar (Losartan Potassium) 50 Mg Tab 50 Mg PO HS 01/06/14 Reported Glucophage * (Metformin HCl) 1,000 Mg Tab 1,000 Mg PO BIDM 07/05/10 Reported (Kortney Williamson PA-C) Physical Exam Vital Signs (Last 8hrs): Last 8 Hrs Date Time Temp Pulse Resp B/P (MAP) Pulse Ox O2 Delivery O2 Flow Rate FiO2 02/17/18 11:15 36.9 69 16 132/73 (92) 97 Room Air 02/17/18 08:00 97 Room Air 02/17/18 07:32 36.4 60 18 159/88 (111) 97 02/17/18 04:30 Room Air 02/17/18 04:21 36.6 60 18 136/73 (94) 97 Room Air General Appearance: Alert and Oriented x3. NAD. Head: Normocephalic Atraumatic. Eyes: PERRLA, EOMI, conjunctiva and sclera clear Neck: Supple. No carotid bruits noted. No JVD. No HJD. Respiratory: Breath sounds clear to auscultation bilaterally. No w/r/r. Cardiovascular: Reg rate and rhythm. S1 and S2 noted. No murmurs, rubs, gallops. PMI non displace. Abdomen: Normal bowel sounds, soft nontender. no abdominal bruits. Extremities: No edema, no clubbing or cyanosis. distal pulses 2/4 bilaterally. Neuro: No focal deficits. Psychiatric: Normal affect. (Kortney Williamson, GLENNA) Data Last 24 Hours Test 02/16/18 12:31 02/16/18 12:40 02/16/18 12:59 02/16/18 16:47 Influenza Type A Antigen Neg for Influ A Influenza Type B Antigen Neg for Influ B White Blood Count 5.91 K/uL Red Blood Count 5.02 M/uL Hemoglobin 15.3 g/dL Hematocrit 42.5 % Mean Corpuscular Volume 84.7 fL Mean Corpuscular Hemoglobin 30.5 pg Mean Corpuscular Hemoglobin Concent 36.0 g/dl Platelet Count 207 K/uL Mean Platelet Volume 10.7 fL Neutrophils (%) (Auto) 59.9 % Lymphocytes (%) (Auto) 29.3 % Monocytes (%) (Auto) 6.9 % Eosinophils (%) (Auto) 3.2 % Basophils (%) (Auto) 0.5 % Neutrophils # (Auto) 3.54 K/uL Lymphocytes # (Auto) 1.73 K/uL Monocytes # (Auto) 0.41 K/uL Eosinophils # (Auto) 0.19 K/uL Basophils # (Auto) 0.03 K/uL RDW Standard Deviation 39.5 fL RDW Coefficient of Variation 12.8 % Immature Granulocyte % (Auto) 0.2 % Immature Granulocyte # (Auto) 0.01 K/uL Sodium Level 139 mmol/L Potassium Level 4.0 mmol/L Chloride Level 106 mmol/L Carbon Dioxide Level 24 mmol/L Anion Gap 9.0 mmol/L Blood Urea Nitrogen 11 mg/dl Creatinine 0.95 mg/dl Est Creatinine Clear Calc Drug Dose 89.8 ml/min Estimated GFR () 96.3 Estimated GFR (Non- 83.1 BUN/Creatinine Ratio 11.4 Random Glucose 141 mg/dl Lactic Acid Level 1.1 mmol/L Calcium Level 8.4 mg/dl Magnesium Level 2.0 mg/dl Total Bilirubin 1.4 mg/dl Direct Bilirubin 0.2 mg/dl Aspartate Amino Transf (AST/SGOT) 23 U/L Alanine Aminotransferase (ALT/SGPT) 49 U/L Alkaline Phosphatase 61 U/L Troponin I < 0.015 ng/ml Total Protein 7.0 gm/dl Albumin 3.9 gm/dl Lipase 75 U/L Thyroid Stimulating Hormone (TSH) 0.324 uIu/ml Salicylates Level < 1.7 mg/dl Acetaminophen Level < 2 ug/ml Lyme Disease IgG Antibody NEG Lyme Disease IgM Antibody NEG Venous Blood pH 7.45 Venous Blood Partial Pressure CO2 37 mmHg Venous Blood Partial Pressure O2 53 mmHg Venous Blood HCO3 25 mmol/L Venous Blood Oxygen Saturation 86.8 % Venous Blood Base Excess 1.4 mEq/L Bedside Glucose 122 mg/dl Test 02/16/18 18:25 02/16/18 19:56 02/17/18 00:00 02/17/18 00:21 Troponin I < 0.015 ng/ml < 0.015 ng/ml Bedside Glucose 173 mg/dl Urine Color YELLOW Urine Appearance CLEAR Urine pH 6.5 Urine Specific [place] 1.019 Urine Protein NEG Urine Glucose (UA) NEG Urine Ketones NEG Urine Occult Blood NEG Urine Nitrite NEG Urine Bilirubin NEG Urine Urobilinogen NEG Urine Leukocyte Esterase NEG Test 02/17/18 04:39 02/17/18 07:15 02/17/18 08:03 Estimated Average Glucose 177 mg/dl Hemoglobin A1c 7.8 % Total Bilirubin 1.8 mg/dl Direct Bilirubin 0.3 mg/dl Aspartate Amino Transf (AST/SGOT) 23 U/L Alanine Aminotransferase (ALT/SGPT) 49 U/L Alkaline Phosphatase 59 U/L Total Protein 6.6 gm/dl Albumin 3.5 gm/dl 25-Hydroxy Vitamin D Total 20.5 ng/ml Bedside Glucose 151 mg/dl Sodium Level 137 mmol/L Potassium Level 4.1 mmol/L Chloride Level 105 mmol/L Carbon Dioxide Level 24 mmol/L Anion Gap 8.0 mmol/L Blood Urea Nitrogen 13 mg/dl Creatinine 1.01 mg/dl Est Creatinine Clear Calc Drug Dose 83.9 ml/min Estimated GFR () 89.4 Estimated GFR (Non- 77.1 BUN/Creatinine Ratio 12.6 Random Glucose 166 mg/dl Calcium Level 8.7 mg/dl Free Thyroxine 1.29 ng/dl Imaging: chest xray on admission - IMPRESSION: No active disease in the chest Head CT on admission: No acute findings. EKG on admission: Normal sinus rhythm Normal ECG When compared with ECG of 30-OCT-2011 09:01, No significant change Telemetry reviewed: NSR, no concerning arrhythmias. (Kortney Williamson PA-C) Assessment & Plan 1. Fatigue/reduced functional capacity/atypical chest pain -negative cardiac enzymes -non ischemic EKG -cardiac risk factors include dyslipidemia, hypertension, DM. No recent ischemic work up -Plan to proceed wiht exercise stress echo to evaluate functional capacity and r/o ischemia. Patient prefers treadmill over pharmacologic. 2. Hypertension - uncontrolled on arrival. -Improved readings this AM on home dose losartan 50 mg daily 3. Daytime somnolence -agree with outpatient sleep med evaluation - Scheduled for April Case to be discussed with Dr. Parra. Further recommendations pending review of exercise stress echo. (Kortney Williamson PA-C) CARDIOLOGY ATTENDING ADDENDUM: The patient was seen and personally examined. Agree with Kortney Williamson PA-C's findings and plans as documented above. I saw this patient in the Stress lab and reviewed his chart and performed a physical exam. Patient then underwent an exercise stress test where he did wonderfully well and it was a negative study. I do not believe any additional cardiac testing is indicated at this time. (Alexis Parra, )
[2018-02-17] MEDS ORDERED: INSULIN ASPART 100 UNITS/ML 3 ML PEN SC SCH ×2 (12:00→16:30)
[2018-02-17 12:45] VITALS: BP 129/73; PULSE 84; TEMP 36.6; O2SAT 96
[2018-02-17] MEDS ORDERED: CHOL1000 PO (14:47)
--- NOTE | 2018-02-17 14:49 | Discharge Instructions ---
Discharge Instructions Date of Service Feb 17, 2018. Admission Reason for Admission: Chest Pain Discharge Discharge Diagnosis / Problem: Fatigue, chest pain Discharge Goals Goal(s): Diagnostic testing, Therapeutic intervention Activity Recommendations Activity Limitations: as noted below (Resume activity gradually as tolerated) . Instructions / Follow-Up Instructions / Follow-Up PLEASE REVIEW NEW MEDICATION LIST AND FOLLOW INSTRUCTIONS CAREFULLY. CALL PRIMARY CARE PHYSICIAN OR RETURN TO EMERGENCY ROOM IF WITH INCREASING SYMPTOMS. FOLLOW-UP WITH DR. MARTI ON TUESDAY, FEBRUARY 20, 2018 AT 11:00 AM. Current Hospital Diet Patient's current hospital diet: Diabetes Type 2 Diet, AHA Diet (Heart Healthy) Discharge Diet Recommended Diet: AHA Diet (Heart Healthy), Diabetes Type 2 Diet Procedures Procedures Performed: STRESS TEST Pending Studies Studies pending at discharge: no Laboratory Results Hemoglobin A1c Test 02/17/18 04:39 Range/Units Estimated Average Glucose 177 mg/dl Hemoglobin A1c 7.8 H 4.5-5.6 % Medical Emergencies . Who to Call and When: Medical Emergencies: If at any time you feel your situation is an emergency, please call 911 immediately. . Non-Emergent Contact Non-Emergency issues call your: Primary Care Provider Call Non-Emergent contact if: you have a fever, your pain is not controlled, your pain is worsening, you have any medication questions . . "Provider Documentation" section prepared by Rashid Gomez. .
--- NOTE | 2018-02-17 15:30 | ECHOCARDIOGRAM REPORT ---
*NOTICE TO RECEIVING CONSTITUTION PARTY AGENCY This information is strictly Confidential and protected under [place] law. [place] law prohibits you from making any further disclosure of this information unless further disclosure is expressly permitted by the written consent of the person to whom it pertains or is authorized by law. A general authorization for the release of medical or other information is not sufficient for this purpose. Hospital accepts no responsibility if the information is made available to any other person, INCLUDING THE PATIENT. Interpretation Summary * Name: ISAAK VERGARA Study Date: 02/17/2018 06:48 AM BP: 136/73 mmHg * Patient Location: [facility] HR: 63 * : 1950 (M/d/yyyy) Gender: Male Height: 70 in * Age: 67 yrs Ethnicity: [place] Weight: 216 lb * Ordering Physician: Rashid Gomez * Referring Physician: Self, Referred * Performed By: Shanthi Angeles RDCS * * Reason For Study: Chest pain * BSA: 2.2 m2 * -- Conclusions -- * The left ventricular wall motion is normal. * Left ventricular systolic function is normal. * Ejection Fraction = 65-70%. * The right ventricular systolic function is normal as assessed by tricuspid annular plane systolic excursion (TAPSE) (normal >1.5 cm). * The left atrial size is normal. * Right atrial size is normal. * No significant valvular pathology. Procedure Details * A complete two-dimensional transthoracic echocardiogram was performed (2D, M-mode, Doppler and color flow Doppler). Left Ventricle * The left ventricle is normal in size. * There is normal left ventricular wall thickness. * Ejection Fraction = 65-70%. * Left ventricular systolic function is normal. * The left ventricular wall motion is normal. Right Ventricle * The right ventricle is normal size. * The right ventricular systolic function is normal as assessed by tricuspid annular plane systolic excursion (TAPSE) (normal >1.5 cm). Atria * The left atrial size is normal. * Right atrial size is normal. * There is no evidence of atrial septal defect, but resolution does not allow assessment for a patent foramen ovale. Mitral Valve * The mitral valve is normal. * There is no mitral valve stenosis. * Significant mitral regurgitation is absent. Tricuspid Valve * The tricuspid valve is normal. * There is no tricuspid stenosis. * Significant tricuspid regurgitation is absent. Aortic Valve * The aortic valve is trileaflet. * Aortic stenosis is absent. * There is no significant aortic regurgitation. Pulmonic Valve * The pulmonary valve is not well seen, but the Doppler examination is normal without significant regurgitation or stenosis. Great Vessels * The aortic root and proximal ascending aorta are normal sized. Pericardium/Pleural * There is no pericardial effusion. Great Vessels * Normal inferior vena cava diameter and respiratory variation suggests normal central venous pressure. MMode 2D Measurements and Calculations IVSd 1.1 cm LVIDd 3.9 cm LVIDs 2.5 cm LVPWd 1.3 cm IVS/LVPW 0.82 FS 36.7 % EDV(Teich) 67.7 ml ESV(Teich) 22.3 ml EF(Teich) 67.2 % EDV(cubed) 61.4 ml ESV(cubed) 15.6 ml EF(cubed) 74.7 % LV mass(C)d 158.7 grams LV mass(C)dI 73.6 grams/m\S\2 SV(Teich) 45.5 ml SI(Teich) 21.1 ml/m\S\2 SV(cubed) 45.8 ml SI(cubed) 21.3 ml/m\S\2 Ao root diam 3.1 cm Ao root area 7.7 cm\S\2 ACS 1.9 cm LA dimension 3.7 cm asc Aorta Diam 3.0 cm LA/Ao 1.2 LVOT diam 2.0 cm LVOT area 3.2 cm\S\2 LVAd ap4 25.4 cm\S\2 LVLd ap4 7.7 cm EDV(MOD-sp4) 67.7 ml EDV(sp4-el) 71.0 ml LVAs ap4 13.5 cm\S\2 LVLs ap4 6.6 cm ESV(MOD-sp4) 23.9 ml ESV(sp4-el) 23.5 ml EF(MOD-sp4) 64.7 % EF(sp4-el) 67.0 % LVAd ap2 27.4 cm\S\2 LVLd ap2 7.5 cm EDV(MOD-sp2) 82.0 ml EDV(sp2-el) 84.9 ml LVAs ap2 14.6 cm\S\2 LVLs ap2 6.2 cm ESV(MOD-sp2) 29.5 ml ESV(sp2-el) 29.2 ml EF(MOD-sp2) 64.0 % EF(sp2-el) 65.6 % LVLd %diff -2.94 % EDV(MOD-bp) 75.7 ml LVLs %diff -6.36 % ESV(MOD-bp) 26.8 ml EF(MOD-bp) 64.6 % SV(MOD-sp4) 43.8 ml SI(MOD-sp4) 20.3 ml/m\S\2 SV(MOD-sp2) 52.4 ml SI(MOD-sp2) 24.3 ml/m\S\2 SV(MOD-bp) 48.9 ml SI(MOD-bp) 22.7 ml/m\S\2 SV(sp4-el) 47.5 ml SI(sp4-el) 22.0 ml/m\S\2 SV(sp2-el) 55.7 ml SI(sp2-el) 25.8 ml/m\S\2 Doppler Measurements and Calculations MV E max doug 72.3 cm/sec MV A max doug 78.1 cm/sec MV E/A 0.93 MV dec time 0.20 sec Ao V2 max 114.7 cm/sec Ao max PG 5.3 mmHg Ao max PG (full) 1.4 mmHg ALEKSANDAR(V,A) 2.8 cm\S\2 ALEKSANDAR(V,D) 2.8 cm\S\2 LV V1 max PG 3.8 mmHg LV V1 max 98.0 cm/sec PA V2 max 85.5 cm/sec PA max PG 2.9 mmHg PA acc slope 598.3 cm/sec\S\2 PA acc time 0.12 sec TR max doug 80.8 cm/sec PA pr(Accel) 23.5 mmHg
[2018-02-17 15:33] VITALS: BP 129/73; PULSE 84; TEMP 36.6; O2SAT 96
--- NOTE | 2018-02-17 15:40 | EXERCISE STRESS ECHO ---
*NOTICE TO RECEIVING LIBERTARIAN AGENCY This information is strictly Confidential and protected under [place] law. [place] law prohibits you from making any further disclosure of this information unless further disclosure is expressly permitted by the written consent of the person to whom it pertains or is authorized by law. A general authorization for the release of medical or other information is not sufficient for this purpose. Hospital accepts no responsibility if the information is made available to any other person, INCLUDING THE PATIENT. Interpretation Summary * Name: ISAAK VERGARA Study Date: 02/17/2018 10:52 AM BP: 160/76 mmHg * Patient Location: [facility]\S\N276\S\1 HR: 60 * : 1950 (M/d/yyyy) Gender: Male Height: 70 in * Age: 67 yrs Ethnicity: [place] Weight: 212 lb * Ordering Physician: Kortney Williamson * Referring Physician: Self, Referred * Performed By: Celina Kim [facility] * * Reason For Study: CHEST PAIN * BSA: 2.1 m2 * STRESS STUDY: Normal exercise stress echocardiogram. No echocardiographic or ECG evidence of myocardial ischemia having achieved heart rate adequate for diagnostic purposes. * -- Conclusions -- * STRESS STUDY: Normal exercise stress echocardiogram. No echocardiographic or ECG evidence of myocardial ischemia having achieved heart rate adequate for diagnostic purposes. Procedure Details * ECHOEX, CPT #22168 Left Ventricle * The left ventricular ejection fraction increases normally with stress. The left ventricular end-systolic cavity size reduces post-stress (normal response). The left ventricular wall motion with stress is normal. Stress Parameters * The baseline EKG reveals a sinus rhythm with an incomplete right bundle branch block. * Stress ECG: No ST changes. No arrhythmias. * No arrhythmia were noted with stress. * The stress portion of this study was personally supervised by the undersigned interpreting physician. * Rest heart rate was '60' BPM. * Rest blood pressure was '160/76' * Maximum heart rate achieved was 141 bpm. * Maximum heart rate was 91 % of maximum age-predicted heart rate. * Maximum blood pressure was '190/80' * Total exercise time was '09:00' * Maximum exercise MET level achieved was '10.40' METS * Maximum treadmill speed was '3.40' miles per hour. * Maximum treadmill elevation was '14.00'% grade.
[2018-02-17] MEDS ORDERED: INSULIN GLARGINE SOLOSTAR 100 UNITS/ML 3 ML PEN SC ONE (17:00)
--- NOTE | 2018-02-18 15:01 | Discharge Summary ---
Discharge Summary Date of Service Feb 18, 2018. Discharge Summary Admission Date: Feb 16, 2018 at 15:12 Discharge Date: Feb 17, 2018 Discharge Disposition: Home Principal Diagnosis: CHEST PAIN ACUTE CORONARY SYNDROME RULED OUT Secondary Diagnoses/Problems: Please refer to hospital course below. Procedures: EXERCISE STRESS TEST: * STRESS STUDY: Normal exercise stress echocardiogram. No echocardiographic or ECG evidence of myocardial ischemia having achieved heart rate adequate for diagnostic purposes. * -- Conclusions -- * STRESS STUDY: Normal exercise stress echocardiogram. No echocardiographic or ECG evidence of myocardial ischemia having achieved heart rate adequate for diagnostic purposes. * * CT HEAD WITHOUT CONTRAST (CT) CLINICAL HISTORY: Weakness, fatigue, left arm numbness. COMPARISON STUDY: No previous studies for comparison. TECHNIQUE: Axial CT of the brain is performed from the vertex to the skull base. IV contrast was not administered for this examination. A dose lowering technique was utilized adhering to the principles of ALARA. CT DOSE: 687.98 mGy.cm FINDINGS: No intra or extra-axial mass lesions are visualized. There is no CT evidence of acute cortical infarction. There is no evidence of midline shift. There is no acute hemorrhage. No calvarial fractures are visualized. There is no evidence of pathologic ventricular dilatation. There is no evidence of acute sinusitis IMPRESSION: No acute intracranial findings Electronically signed by: Juan Miguel Cordova M.D. 02/16/2018 1:21 PM CHEST 2 VIEWS ROUTINE CLINICAL HISTORY: weakness COMPARISON STUDY: December 2007 FINDINGS: The cardiac and mediastinal contours are normal. There is no evidence of focal pulmonary consolidation. There is no evidence of failure. No pleural effusions are visualized.[ IMPRESSION: No active disease in the chest. Electronically signed by: Juan Miguel Cordova M.D. 02/16/2018 2:31 PM Consultations: CARDIOLOGY DR. PARRA Pending Studies/Follow-Up: Please refer to hospital course below. Medication Reconciliation Changed Medications: Cholecalciferol (Vitamin D3) 1,000 Unit Tab 2 TABS PO QAM for 30 Days (Changed from: 1 TAB) Continued Medications: Aspirin (Aspir-81) 81 Mg Tab 81 MG PO HS Atorvastatin (Lipitor) 20 Mg Tab 20 MG PO HS Citalopram (Citalopram Hydrobromide) 20 Mg Tab 20 MG PO QAM Coenzyme Q10 (Ubidecarenone) (Co Q 10) 100 Mg Cap 200 MG PO QAM Insulin Aspart 70/30 (Novolog Mix 70/30) Susp 0 SC BIDM Levothyroxine Sodium (Levothyroxine Sodium) 137 Mcg Tab 1 TAB PO QAM Losartan Potassium (Cozaar) 50 Mg Tab 50 MG PO HS Metformin HCL (Glucophage *) 1,000 Mg Tab 1000 MG PO BIDM Vitamin B Cmplx/Vitc/Folic Ac (Nephrocaps) Cap 1 CAP PO QAM Admission Information HPI (per Admitting provider): 67-year-old male with diabetes type 2 hypertension hypothyroidism and other problems noted below presenting with chest pain and fatigue. Follows with Dr. Moise for primary care. Patient has been having ongoing fatigue, low energy for the past few months worsening recently. 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 Denies fevers chills, weight loss, decreased appetite. Also reports intermittent chest pain, radiating to his neck/jaws, occurring with exertion and at rest. 2 days ago., Patient woke up with left arm numbness mostly medial left arm. He was at [employer] today and felt extremely fatigued to the point that he could not remain standing for a long time. Hence he was brought to the ER. Vital signs are stable overall. Troponins 1 negative. EKG no signs of acute ischemia ischemia. CT head negative for acute process Chest x-ray no infiltrates Hospitalist consulted for evaluation. On exam the patient is awake alert oriented 3,, comfortable Denies chest pain, shortness of breath, nausea, headache, dizziness. Left arm numbness improving. No other symptoms. Physical Exam (per Admitting): General Appearance: WD/WN, no apparent distress Head: normocephalic, atraumatic Eyes: normal inspection, PERRL, EOMI, sclerae normal ENT: normal ENT inspection, hearing grossly normal, pharynx normal Neck: supple, no adenopathy, thyroid normal, no JVD, trachea midline Respiratory/Chest: chest non-tender, lungs clear, normal breath sounds, no respiratory distress, no accessory muscle use Cardiovascular: regular rate, rhythm, no edema, no JVD, no murmur, normal peripheral pulses Abdomen/GI: normal bowel sounds, non tender, soft Back: normal inspection, no CVA tenderness Extremities/Musculoskelatal: normal inspection, no calf tenderness, no pedal edema, normal range of motion, non-tender 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 CHEST PAIN ACUTE CORONARY SYNDROME RULED OUT Risk factors: Diabetes, hypertension, former smoker troponins x 3 negative Status post treadmill exercise stress test negative Cardiology consulted Dr. Parra/ALBA Williamson No further cardiac testing Continue aspirin, Lipitor CHRONIC FATIGUE Ongoing for a few months now No anemia, no signs of active infection or fever Possible FREDRICK Nocturnal Hypoxemia ruled out Nocturnal pulse oximetry ordered: does not meet criteria for oxygen supplement overnight scheduled of Sleep Study in April 2018, will be helpful if patient can get an earlier scheduled for the sleep study Hypothyroidism ruled out History of Thyroidectomy, on Levothyroxine 137 mcg daily TSH and free T4 normal Lyme disease ruled out Lyme screen negative Other possible etiologies: Possible related to Celexa? Patient is on Celexa 20 mg p.o. daily May need to transition him to another medication for mood He may also need testosterone level studies Possible workup for underlying malignancy as well although patient not reporting weight loss, anorexia, fevers, night sweats DIABETES TYPE 2 a1c: 7.8 Usually on NovoLog 7030 40 units twice daily, metformin 500 twice daily HYPERTENSION Stable Losartan 50 mg daily ANXIETY Question whether chronic fatigue may be secondary to Celexa Patient is on Celexa 20 mg p.o. daily May need to transition him to another medication for mood VITAMIN D DEFICIENCY Vitamin D level 20 Increase vitamin D to 2000 units daily Repeat in 4 weeks Disposition Discharge home Follow-up with primary care physician on February Total time spent on discharge = This includes examination of the patient, discharge planning, medication reconciliation, and communication with other providers. Discharge Instructions Discharge Instructions Date of Service Feb 17, 2018. Admission Reason for Admission: Chest Pain Discharge Discharge Diagnosis / Problem: Fatigue, chest pain Discharge Goals Goal(s): Diagnostic testing, Therapeutic intervention Activity Recommendations Activity Limitations: as noted below (Resume activity gradually as tolerated) . Instructions / Follow-Up Instructions / Follow-Up PLEASE REVIEW NEW MEDICATION LIST AND FOLLOW INSTRUCTIONS CAREFULLY. CALL PRIMARY CARE PHYSICIAN OR RETURN TO EMERGENCY ROOM IF WITH INCREASING SYMPTOMS. FOLLOW-UP WITH DR. MARTI ON TUESDAY, FEBRUARY 20, 2018 AT 11:00 AM. Current Hospital Diet Patient's current hospital diet: Diabetes Type 2 Diet, AHA Diet (Heart Healthy) Discharge Diet Recommended Diet: AHA Diet (Heart Healthy), Diabetes Type 2 Diet Procedures Procedures Performed: STRESS TEST Pending Studies Studies pending at discharge: no Laboratory Results Hemoglobin A1c Test 02/17/18 04:39 Range/Units Estimated Average Glucose 177 mg/dl Hemoglobin A1c 7.8 H 4.5-5.6 % Medical Emergencies . Who to Call and When: Medical Emergencies: If at any time you feel your situation is an emergency, please call 911 immediately. . Non-Emergent Contact Non-Emergency issues call your: Primary Care Provider Call Non-Emergent contact if: you have a fever, your pain is not controlled, your pain is worsening, you have any medication questions . . "Provider Documentation" section prepared by Rashid Gomez. .
== END 2018-02-17 16:08 | disposition home or self-care (01) ==
LOC: C.EDB 11:55 → C.MED 15:12 → EDBEDREQ 15:36 → ENRESERV 15:47
PROVIDERS: ADMIT Internal Medicine; ATTEND Internal Medicine
DX: R07.9 Chest pain, unspecified (principal); E11.9 Type 2 diabetes mellitus without complications; I10 Essential (primary) hypertension; E03.9 Hypothyroidism, unspecified; Z79.82 Long term (current) use of aspirin; Z79.899 Other long term (current) drug therapy; Z88.2 Allergy status to sulfonamides; Z87.891 Personal history of nicotine dependence; Z82.49 Family history of ischemic heart disease and other diseases of the circulatory system; Z83.3 Family history of diabetes mellitus; Z80.9 Family history of malignant neoplasm, unspecified; Z84.1 Family history of disorders of kidney and ureter

== ENCOUNTER → 2018-04-01 | Outpatient (CLI) | payer OTHER ==
[~2018-04-01] MED LIST changes: -AMLO-110 PO; +ATOR-22 PO; +B-CO1CAP17 PO; -CEPH500T PO; +CHOL1000 PO; +LEVO137T3 PO; +NVLGI7030 SC; -REPA1TAB26 PO; -SYN150
[2018-04-02 06:25] LABS: HEMOGLOBIN A1C 7.9 % (4.5-5.6)
== END | disposition home or self-care (01) ==
LOC: C.LABBFT 11:24
PROVIDERS: ATTEND Internal Medicine Endocrinology, Diabetes & Metabolism
DX: E11.9 Type 2 diabetes mellitus without complications (principal); E89.0 Postprocedural hypothyroidism

== ENCOUNTER 2024-11-09 16:07 | Inpatient (IN) ==
[2024-11-09 16:49] LABS: Basophils # (auto) 0.04 K/uL (0.00-0.20); Basophils % (auto) 0.6 %; Eosinophils # (auto) 0.27 K/uL (0.00-0.50); Hematocrit (blood only) 42.4 % (42.0-52.0); Hemoglobin 14.9 g/dl (14.0-18.0); Immature Granulocytes # (auto) 0.01 K/uL (0.01-0.20); Immature Granulocytes % (auto) 0.1 %; Lymphocytes # (auto) 1.68 K/uL (1.20-3.40); Mean Corpuscular Hgb Conc 35.1 g/dL (32.0-36.0); Mean Corpuscular Volume 85.5 fL (80.0-100.0); Mean Platelet Volume 11.4 fL (9.4-12.4); Monocytes # (auto) 0.54 K/uL (0.11-0.59); Neutrophils # (auto) 4.19 K/uL (1.40-6.50); Neutrophils % (auto) 62.3 %; Platelet Count 236 K/uL (130-400); RDW Coefficient of Variation 12.2 % (11.5-14.5); RDW Standard Deviation 38.4 fL (36.4-46.3); Red Blood Count 4.96 M/uL (4.70-6.10); White Blood Count 6.73 K/ul (4.8-10.8)
--- NOTE | 2024-11-09 16:49 | XRay Report ---
Clinical History: Chest pain Technique: A frontal view of the chest was obtained Comparison is made to the prior examination dated 09/29/2024 Findings: There are no confluent pulmonary infiltrates. The heart size is within normal limits. No pleural effusion or pneumothorax is seen. There is no definite pulmonary nodule. No fracture is noted. No foreign body is seen Impression: No active disease Electronically signed by Twan Alicia 11-09-2024 4:49 PM
[2024-11-09 17:17] LABS: Alanine Aminotransferase 26 U/L (7-52); Albumin Globulin Ratio 1.4 (0.9-2); Albumin Level 4.3 gm/dl (3.4-5.0); Alkaline Phosphatase 49 U/L (34-104); Anion Gap 9 (3-11); BUN Creatinine Ratio 14.7 (10-20); Bilirubin,Total 1.1 mg/dl (0.2-1.0); Blood Urea Nitrogen 14 mg/dl (6-23); Calcium 9.3 mg/dl (8.6-10.3); Carbon Dioxide 27 mmol/L (21-32); Chloride 101 mmol/L (98-107); Globulin 3.1 gm/dl (2.5-4.0); Glucose 249 mg/dl (70-99(Fasting)); Sodium 137 mmol/L (136-145); Total Protein 7.4 gm/dl (6.0-8.3); Troponin I High Sensitivity 19.1 pg/ml (0-20)
--- NOTE | 2024-11-09 17:32 | Emergency Department Note ---
Impression & Plan Chest pain, Weakness, Elevated troponin ED Provider Note NAME: ISAAK VERGARA AGE: 73 SEX: M : 1950 ARRIVES VIA: Walk-In INFORMANT: Patient, ED PROVIDER(S): Riki Seymour MD CHIEF COMPLAINT: Chest pain, weakness MEDICAL DECISION MAKING: Patient presents for the above. IV was established and blood work is obtained. EKG does not show overt signs of ischemia but the patient's troponin is at the borderline upper limits of normal.Patient did have bio fire ordered and was ordered saline bolus 500 cc and TSH ordered. Patient is a normal white count H&H and platelet count. The patient's kidney function is unremarkable. BSG at 249. The patient has had elevated blood sugar in the past. The patient's repeat troponin is positive. Upon reassessment the patient does feel improved. BioFire negative. Given the patient has a positive troponin and this is higher than when he presented a month ago did believe the patient would benefit from further testing. Patient the patient's comfortable plan of care. I did speak the on-call hospitalist service and the patient was admitted by Dr. Gomez. Discussion w/ other healthcare providers: Oly Joy PA-C and Dr. Gomez inpatient medicine service Prior /Outside records reviewed: None Differential diagnosis: Cardiac ischemia, aortic dissection, pulmonary embolism, pneumothorax, pneumonia, pericarditis, myocarditis, GERD, cholecystitis, pancreatitis, musculoskeletal, as well as other pathologies were considered. Diagnostics, as interpreted by me: ECG: Sinus, rate of 76, normal intervals, normal axis. Motion artifact in lead I and II but no obvious ST elevations. Cardiac monitoring: An order was placed for continuous cardiac monitoring. The monitor shows a rate of 75 with sinus rhythm. Patient was placed on pulse oximetry Medical decision rules: none Imaging studies: I informally interpreted the patient's chest x-ray does not show obvious pneumonia or pneumothorax with formal report to follow. HPI: Patient presents due to concern for feeling generally unwell with associated weakness and chest pain. Patient reportedly was out shopping when he felt lightheaded dizzy and did feel weak. The patient came out of the store went to the car and felt as though he had some chest pain that was central and left-sided. Nonradiating he did feel little clammy states that he was slightly nauseated but never felt as though he was going to vomit. Patient states that his chest pain lasted minutes in duration. No prior history of any known heart or lung disease. Patient is a non-smoker. The patient does admit to a nonproductive cough. No recent travel and no known sick contacts. Patient denies any history of thyroid disease. Patient denies any leg swelling or calf pain. No history of DVT or PE. PAST MEDICAL HISTORY: See Below PAST SURGICAL HISTORY: See Below SOCIAL HISTORY: See Below HOME MEDICATIONS: See Below ALLERGIES: See Below VITALS: See Below PHYSICAL EXAMINATION: GENERAL: NAD, non-toxic. Wearing glasses. EYE EXAM: Normal conjunctiva. PERRL, no anisocoria and EOM's grossly intact w/o pain. OROPHARYNX: Moist mucus membranes, grossly normal dentition. NECK: Trachea midline, no stridor. Supple, no nuchal rigidity, no adenopathy, non-tender. No signs of meningismus. FROM of the neck with good chin to chest and neck extension. LUNGS: Clear to auscultation. Normal chest wall mechanics. HEART: NSR, no MRG. ABDOMEN: Abdomen soft, non-tender, no masses, no rebound or guarding. BACK: No CVA TTP. SKIN: No rashes and no bruising. UPPER EXTREMITIES: Upper extremities are grossly normal. LOWER EXTREMITIES: Grossly normal, 1+ symmetric lower extremity edema without calf pain or erythema. NEURO EXAM: A&O x3, cranial nerves II-XII grossly intact, normal speech, moves all 4 extremities. Past Med/Surg History Problem List (Updated 11/10/24 @ 18:37 by Riki Seymour MD) Elevated troponin (Acute) Weakness (Acute) Post-surgical hypothyroidism T2DM (type 2 diabetes mellitus) Vitamin D deficiency Hypothyroidism, postablative Overweight Dyslipidemia HTN (hypertension) Diabetes type 2, uncontrolled Chest pain (Acute) Diabetic peripheral neuropathy associated with type 2 diabetes mellitus Dysesthesia History of diabetic ulcer of foot Medical History Depression Basal cell carcinoma Follicular adenocarcinoma of thyroid gland Diabetic foot ulcer Family History Father Diabetes Social History Smoking Status: Former smoker Hx Alcohol Use: No Hx Substance Use: No Preferred Language: Korean Communication Ability: Effective Exercise Physiologist Certified Required: No Beliefs That Will Affect Care: None marital status: Current Living Situation: Spouse Feels Safe at Home: Yes Assistive Devices: None Allergies Allergies Allergy/AdvReac Type Severity Reaction Status Date / Time Sulfa (Sulfonamide Allergy Intermediate HIVES Verified 11/09/24 19:32 Antibiotics) exenatide [From Byetta] Allergy Unknown Verified 11/09/24 19:32 Home Meds Home Medications Medication Instructions Recorded Confirmed citalopram 20 mg tablet 20 mg PO DAILY 03/26/19 11/09/24 lancets (PoweredAnalyticsTouch UltraSoft #50 ea 06/17/19 09/04/21 Lancets) cholecalciferol (vitamin D3) 25 25 mcg PO DAILY 11/09/24 11/09/24 mcg (1,000 unit) capsule (Vitamin D3) coQ10 (ubiquinol) 200 mg capsule 200 mg PO DAILY 11/09/24 11/09/24 cyanocobalamin (vitamin B-12) 1,000 mcg PO DAILY 11/09/24 11/09/24 1,000 mcg tablet (Vitamin B-12) hydrochlorothiazide 25 mg tablet 25 mg PO QAM 11/09/24 11/09/24 icosapent ethyl 1 gram capsule 2 g PO QAM 11/09/24 11/09/24 insulin degludec 200 unit/mL (3 68 unit subcut QAM 11/09/24 11/09/24 mL) subcutaneous pen (Tresiba FlexTouch U-200 insulin) losartan 100 mg tablet 100 mg PO DAILY 11/09/24 11/09/24 metformin 500 mg tablet 1,000 mg PO BIDM 11/09/24 11/09/24 naproxen sodium 220 mg tablet 440 mg PO BID PRN Pain 11/09/24 11/09/24 (Aleve) pioglitazone 30 mg tablet 30 mg PO QAM 11/09/24 11/09/24 rosuvastatin 10 mg tablet 10 mg PO QAM 11/09/24 11/09/24 Previous Rx's Medication Instructions Recorded blood sugar diagnostic (PoweredAnalyticsTouch #300 ea 06/20/21 Verio test strips) insulin syringe-needle U-100 0.5 #200 ea 04/13/22 mL 31 gauge x 5/16" (BD Insulin Syringe Ultra-Fine) levothyroxine 112 mcg tablet 112 mcg PO QAM #90 tabs 01/04/23 Results & Data (ED) Vital Signs Vital Signs - 24 hr 11/09/24 18:36 11/09/24 19:00 Pulse Rate 73 Pulse Rate from SpO2 Sensor 73 Respiratory Rate 18 Blood Pressure 154/85 H 171/96 H Blood Pressure Mean 108 145 Pulse Oximetry 97 Home Medications Current Medication List: was personally reviewed by me Laboratory Data Attestation: I reviewed the patient's lab results. 11/10/24 06:45 11/10/24 06:45 Lab Results 11/09/24 11/09/24 11/09/24 Range/Units 16:21 17:41 17:52 WBC 6.73 (4.8-10.8) K/ul RBC 4.96 (4.70-6.10) M/uL Hgb 14.9 (14.0-18.0) g/dl Hct 42.4 (42.0-52.0) % MCV 85.5 (80.0-100.0) fL MCH 30.0 (25.0-34.0) pg MCHC 35.1 (32.0-36.0) g/dL RDW Std Deviation 38.4 (36.4-46.3) fL RDW Coeff of Dave 12.2 (11.5-14.5) % Plt Count 236 (130-400) K/uL MPV 11.4 (9.4-12.4) fL Immature Gran % (Auto) 0.1 % Neut % (Auto) 62.3 % Lymph % (Auto) 25.0 % [place] % (Auto) 8.0 % Eos % (Auto) 4.0 % Baso % (Auto) 0.6 % Neut # (Auto) 4.19 (1.40-6.50) K/uL Lymph # (Auto) 1.68 (1.20-3.40) K/uL [place] # (Auto) 0.54 (0.11-0.59) K/uL Eos # (Auto) 0.27 (0.00-0.50) K/uL Baso # (Auto) 0.04 (0.00-0.20) K/uL Immature Gran # (Auto) 0.01 (0.01-0.20) K/uL PT Cancelled 10.7 INR Cancelled 1.0 APTT Cancelled 25 PTT Ratio Cancelled 0.9 Sodium 137 (136-145) mmol/L Potassium TNP 4.5 Chloride 101 (98-107) mmol/L Carbon Dioxide 27 (21-32) mmol/L Anion Gap 9 (3-11) BUN 14 (6-23) mg/dl Creatinine 0.95 (0.6-1.4) mg/dl Est Cr Clr Drug Dosing Not Reportable eGFR 85.04 BUN/Creatinine Ratio 14.7 (10-20) Glucose 249 H (70-99(Fasting)) mg/dl Calcium 9.3 (8.6-10.3) mg/dl Total Bilirubin 1.1 H (0.2-1.0) mg/dl AST TNP 18 ALT 26 (7-52) U/L Alkaline Phosphatase 49 (34-104) U/L Troponin I High Sens 19.1 21.9 H (0-20) pg/ml Total Protein 7.4 (6.0-8.3) gm/dl Albumin 4.3 (3.4-5.0) gm/dl Globulin 3.1 (2.5-4.0) gm/dl Albumin/Globulin Ratio 1.4 (0.9-2) Vitamin B12 344 (180-914) pg/ml 25-OH Vitamin D Total 36.0 (30-100) ng/ml Folate 9.58 (>5.38) ng/ml TSH 2.563 (0.300-4.500) uIu/ml Random Cortisol 7.99 mcg/dl Adenovirus (PCR) Not Detected (NotDetected) B. pertussis DNA (PCR) Not Detected (NotDetected) B.parapertussis DNA PCR Not Detected (NotDetected) C. pneumoniae DNA (PCR) Not Detected (NotDetected) Coronavirus OC43 (PCR) Not Detected (NotDetected) Coronavirus HKU1 (PCR) Not Detected (NotDetected) Coronavirus 229E (PCR) Not Detected (NotDetected) SARS-CoV-2 (PCR) Not Detected (NotDetected) Coronavirus NL63 (PCR) Not Detected (NotDetected) Human Metapneumovir PCR Not Detected (NotDetected) Influenza Type A (PCR) Not Detected (NotDetected) Influenza Type B (PCR) Not Detected (NotDetected) M. pneumoniae (PCR) Not Detected (NotDetected) Parainfluenza 1 (PCR) Not Detected (NotDetected) Parainfluenza 2 (PCR) Not Detected (NotDetected) Parainfluenza 3 (PCR) Not Detected (NotDetected) Parainfluenza 4 (PCR) Not Detected (NotDetected) RSV (PCR) Not Detected (NotDetected) Entero/Rhino (PCR) Not Detected (NotDetected) Administered Medications Aspirin (Aspirin 81 Mg Ectab) 81 mg PO [facility] Stop: 12/10/24 08:59 Last Admin: 11/10/24 09:56 Dose: 81 mg Documented By: ALFA Citalopram Hydrobromide (Citalopram 20 Mg Tab) 20 mg PO DAILY [facility] Stop: 12/10/24 08:59 Last Admin: 11/10/24 09:56 Dose: 20 mg Documented By: ALFA Cyanocobalamin (Cyanocobalamin (B-12) 500 Mcg Tablet) 1,000 mcg PO DAILY [facility] Stop: 12/10/24 08:59 Last Admin: 11/10/24 09:57 Dose: 1,000 mcg Documented By: ALFA Enoxaparin Sodium (Enoxaparin Inj 40 Mg/0.4 Ml Syr) 40 mg SQ Q24H [facility] Stop: 12/09/24 20:59 Last Admin: 11/09/24 21:23 Dose: 40 mg Documented By: VERONICA Hydrochlorothiazide (Hydrochlorothiazide 25 Mg Tab) 25 mg PO QAM [facility] Stop: 12/10/24 08:59 Last Admin: 11/10/24 09:58 Dose: 25 mg Documented By: ALFA Insulin Aspart (Insulin Aspart Per Unit Charge) 0 units SC ACHS [facility] Stop: 12/09/24 20:59 Last Admin: 11/10/24 17:53 Dose: 6 units Documented By: TYSON Co-signed By: SANTY Admin: 11/10/24 12:03 Dose: Not Given Documented By: Admin: 11/10/24 08:31 Dose: Not Given Documented By: ALFA Co-signed By: SALENA Admin: 11/09/24 21:23 Dose: 4 units Documented By: VERONICA Co-signed By: JONATHAN Insulin Glargine (Lantus Per Unit Charge) 0 - 34 units SQ BID [facility] Stop: 12/09/24 20:59 Last Admin: 11/10/24 10:21 Dose: 17 units Documented By: ALFA Co-signed By: MARTINA Admin: 11/09/24 21:23 Dose: 34 units Documented By: VERONICA Co-signed By: JONATHAN Levothyroxine Sodium (Levothyroxine Sodium 112 Mcg Tablet) 112 mcg PO DAILYBB [facility] Stop: 12/10/24 06:29 Last Admin: 11/10/24 08:05 Dose: 112 mcg Documented By: ALFA Losartan Potassium (Losartan Potassium 50 Mg Tab) 100 mg PO DAILY [facility] Stop: 12/10/24 08:59 Last Admin: 11/10/24 09:57 Dose: 100 mg Documented By: ALFA Rosuvastatin Calcium (Rosuvastatin Calcium 10 Mg Tab) 10 mg PO QAM [facility] Stop: 12/10/24 08:59 Last Admin: 11/10/24 09:58 Dose: 10 mg Documented By: ALFA Vitamin D (Cholecalciferol 25 Mcg (1000 Units) Tab) 25 mcg PO DAILY [facility] Stop: 12/10/24 08:59 Last Admin: 11/10/24 09:56 Dose: 25 mcg Documented By: ALFA Discontinued Medications Aspirin (Aspirin Chew 324 Mg) 324 mg PO NOW STA Stop: 11/09/24 18:37 Last Admin: 11/09/24 18:56 Dose: 324 mg Documented By: GERMAINE Sodium Chloride (Nss) 500 mls @ 999 mls/hr IV .Q31M ONE Stop: 11/09/24 18:01 Last Infusion: 11/09/24 18:56 Dose: Infused Documented By: Admin: 11/09/24 17:47 Dose: 999 mls/hr Documented By: NAPOLEON Imaging Data Radiologist's Impression: Chest X-Ray 11/09/24 16:13 Clinical History: Chest pain Technique: A frontal view of the chest was obtained Comparison is made to the prior examination dated 09/29/2024 Findings: There are no confluent pulmonary infiltrates. The heart size is within normal limits. No pleural effusion or pneumothorax is seen. There is no definite pulmonary nodule. No fracture is noted. No foreign body is seen Impression: No active disease Electronically signed by Twan Alicia 11-09-2024 4:49 PM Discharge Plan Visit Data Chief Complaint: Cardiac Assessment Stated Complaint: DIZZY,CHEST PAIN, SOB, LIGHTHEADED ED Provider: Riki Seymour Discharge Problem: Chest pain, Weakness, Elevated troponin Patient Disposition: Admitted As Inpatient Discharge Instructions Interventions: ED Discharge Assessment Last Done: 11/09/24 20:42 Discharge Problem: Chest pain Qualifiers: Chest pain type: unspecified Qualified Code(s): R07.9 - Chest pain, unspecified
[2024-11-09] MEDS: SODIUM CHLORIDE 0.9% 500 ML IV ONE (17:47)
[2024-11-09 18:22] LABS: Potassium 4.5 mmol/L (3.5-5.1)
[2024-11-09 18:29] LABS: Troponin I High Sensitivity 21.9 pg/ml (0-20)
[2024-11-09 18:33] LABS: Partial Thromboplastin Ratio 0.9; Partial Thromboplastin Time 25 Seconds (21-31); Prothrombin Time 10.7 Seconds (9.0-12.0)
[2024-11-09 18:39] LABS: Thyroid Stimulating Hormone 2.563 uIu/ml (0.300-4.500)
[2024-11-09 18:41] LABS: Adenovirus PCR Not Detected (NotDetected); Bordetella parapertussis PCR Not Detected (NotDetected); Bordetella pertussis PCR Not Detected (NotDetected); Chlamydia pneumoniae PCR Not Detected (NotDetected); Coronavirus 229E PCR Not Detected (NotDetected); Coronavirus CoV-2 (COVID19)PCR Not Detected (NotDetected); Coronavirus HKU1 PCR Not Detected (NotDetected); Coronavirus NL63 PCR Not Detected (NotDetected); Coronavirus OC43PCR Not Detected (NotDetected); Human Metapneumovirus PCR Not Detected (NotDetected); Influenza A PCR Not Detected (NotDetected); Influenza B PCR Not Detected (NotDetected); Mycoplasma pneumoniae PCR Not Detected (NotDetected); Parainfluenza Virus 1 PCR Not Detected (NotDetected); Parainfluenza Virus 2 PCR Not Detected (NotDetected); Parainfluenza Virus 3 PCR Not Detected (NotDetected); Parainfluenza Virus 4 PCR Not Detected (NotDetected); Respiratory Syncytial VirusPCR Not Detected (NotDetected); Rhinovirus/Enterovirus PCR Not Detected (NotDetected)
[2024-11-09] MEDS: ASPIRIN CHEW 324 MG PO STA (18:56)
--- NOTE | 2024-11-09 18:56 | History & Physical Report ---
Date of Service November 09, 2024 Assessment & Plan (1) Chest pain: Plan: Patient is 73 year old male with PMH HTN, HLD, DM II, anxiety, depression, post surgical hypothyroidism, presented to ER with c/o episode of CP today and ongoing fatigue x several months. Today dizziness, diaphoresis and weakness with ambulating, then developed CP while sitting in car lasting approximately an hour and resolving. 10/27/2024 echo: EF: 55-59%. grade I diastolic dysfunction, mild MR, Trace TR Today in ER vitals stable. Negative biofire respiratory panel EKG: sinus rhythm, no acute ST elevation Troponin: 19-->21 CXR: no infiltrate, pneumothorax per my interpretation R/O ACS. Risk factors: HTN, hyperlipidemia, DM, obesity Monitor Vitals Repeat EKG in am Will trend troponin Echo Lipid panel in am, continue rosuvastatin In ER given 324mg aspirin. Start daily aspirin Nitro prn CP and repeat EKG for CP NPO [facility] Cardiology consult CBC, BMP in am (2) Fatigue: Plan: Ongoing fatigue and generalized weakness episodes 09/2024 negative Lyme and negative anaplasma and Babesia smear Today TSH: 2.5 Obtain B12, folate, Vitamin D, cortisol labs (3) HTN (hypertension): Plan: Continue losartan, HCTZ (4) T2DM (type 2 diabetes mellitus): Plan: A1c: 8.0 on 08/21/24 Continue home basal insulin dosed BID. Novolog sliding scale per protocol Hold home oral glycemic agents (5) Post-surgical hypothyroidism: Plan: TSH: 2.5 Continue levothyroxine DVT Prophylaxis Lovenox SQ Admit telemetry Full Code as per discussion with pt Follows with Dr Canales for routine care Pt was seen and care coordinated with Dr Gomez. See addendum I spent a total of 65 minutes reviewing notes, outpatient records, labs, medication, coordinating, documenting and providing care for this patient excluding time spent in the performance of separately billed services. History of Present Illness Chief Complaint: CP Primary Care Provider: Cal Canales MD Patient is 73 year old male with PMH HTN, HLD, DM II, anxiety, depression, post surgical hypothyroidism, presented to ER with c/o episode of CP today and ongoing fatigue. Patient reports episodes of fatigue, generalized weakness for past couple of months. He states walking up steps feeling more fatigued than usual. Fatigue and weakness has been ongoing. Reports episodes of body feeling heavy. States legs giving out today. States arms feel weak but he is able to hold objects and denies dropping objects. Sometimes feels a little SOB. Today had some anterior chest pain described as burning with some sharp jabs. States the CP is new. Prior to CP was feeling lightheaded after ambulating and felt diaphoretic. CP occurred while sitting in car and lasted approximately an hour and self resolved. States checked BSG and was 200's. reports snores and pt reports has had sleep study approximately 3 year ago without reported sleep apnea. In September was initially treated for possible lyme disease with doxycycline but ultimately Lyme testing was negative and had negative anaplasma and Babesia smear. Patient with cardiac telemedicine visit on 11/02/2024 in which Zio patch and exercise stress echo were to be ordered but not completed yet. Denies fever/chills, diaphoresis, N/V/D/C, SANCHEZ, syncope, vision changes, neck pain, palpitations, cough, rhinorrhea, abdominal pain, paresthesias, extremity edema, rashes, urinary symptoms. 10/27/2024 echo: EF: 55-59%. grade I diastolic dysfunction, mild MR, Trace TR Allergies Allergy/AdvReac Type Severity Reaction Status Date / Time Sulfa (Sulfonamide Allergy Intermediate HIVES Verified 11/09/24 19:32 Antibiotics) exenatide [From Byetta] Allergy Unknown Verified 11/09/24 19:32 Home Medications Medication Instructions Recorded Confirmed Type citalopram 20 mg tablet 20 mg PO DAILY 03/26/19 11/09/24 History lancets (OneTouch UltraSoft #50 ea 06/17/19 09/04/21 History Lancets) blood sugar diagnostic (WavestreamTouch #300 ea 06/20/21 09/04/21 Rx Verio test strips) insulin syringe-needle U-100 0.5 #200 ea 04/13/22 11/09/24 Rx mL 31 gauge x 5/16" (BD Insulin Syringe Ultra-Fine) levothyroxine 112 mcg tablet 112 mcg PO QAM #90 tabs 01/04/23 11/09/24 Rx cholecalciferol (vitamin D3) 25 25 mcg PO DAILY 11/09/24 11/09/24 History mcg (1,000 unit) capsule (Vitamin D3) coQ10 (ubiquinol) 200 mg capsule 200 mg PO DAILY 11/09/24 11/09/24 History cyanocobalamin (vitamin B-12) 1,000 mcg PO DAILY 11/09/24 11/09/24 History 1,000 mcg tablet (Vitamin B-12) hydrochlorothiazide 25 mg tablet 25 mg PO QAM 11/09/24 11/09/24 History icosapent ethyl 1 gram capsule 2 g PO QAM 11/09/24 11/09/24 History insulin degludec 200 unit/mL (3 68 unit subcut QAM 11/09/24 11/09/24 History mL) subcutaneous pen (Tresiba FlexTouch U-200 insulin) losartan 100 mg tablet 100 mg PO DAILY 11/09/24 11/09/24 History metformin 500 mg tablet 1,000 mg PO BIDM 11/09/24 11/09/24 History naproxen sodium 220 mg tablet 440 mg PO BID PRN Pain 11/09/24 11/09/24 History (Aleve) pioglitazone 30 mg tablet 30 mg PO QAM 11/09/24 11/09/24 History rosuvastatin 10 mg tablet 10 mg PO QAM 11/09/24 11/09/24 History Past Med/Surg History Problem List (Updated 11/10/24 @ 18:37 by Riki Seymour MD) Elevated troponin (Acute) Weakness (Acute) Post-surgical hypothyroidism T2DM (type 2 diabetes mellitus) Vitamin D deficiency Hypothyroidism, postablative Overweight Dyslipidemia HTN (hypertension) Diabetes type 2, uncontrolled Chest pain (Acute) Diabetic peripheral neuropathy associated with type 2 diabetes mellitus Dysesthesia History of diabetic ulcer of foot Medical History Depression Basal cell carcinoma Follicular adenocarcinoma of thyroid gland Diabetic foot ulcer Family History Father Diabetes Social History Smoking Status: Former smoker Hx Alcohol Use: No Hx Substance Use: No Preferred Language: Moroccan Communication Ability: Effective Strings Teacher Required: No Beliefs That Will Affect Care: None marital status: Current Living Situation: Spouse Feels Safe at Home: Yes Assistive Devices: None Review of Systems Review of Systems: All systems reviewed & are unremarkable except as noted in HPI & below Physical Exam Physical Exam: PE per Dr Gomez Results & Data Results & Data Vital Signs (Past 12 Hours) Vital Signs Temp Pulse Pulse Resp BP BP Pulse Ox 11/09/24 18:36 73 18 154/85 H 97 11/09/24 18:12 72 16 97 11/09/24 18:00 69 20 149/86 H 97 11/09/24 17:59 73 11/09/24 17:54 98 11/09/24 17:54 98 11/09/24 17:53 74 12 167/95 H 98 11/09/24 16:09 36.5 C 77 17 182/96 H 98 O2 Del Method 11/09/24 18:36 11/09/24 18:12 11/09/24 18:00 Room Air 11/09/24 17:59 11/09/24 17:54 Room Air 11/09/24 17:54 Room Air 11/09/24 17:53 Room Air 11/09/24 16:09 Room Air Laboratory Results Short CBC 11/09/24 Range/Units 16:21 WBC 6.73 (4.8-10.8) K/ul Hgb 14.9 (14.0-18.0) g/dl Hct 42.4 (42.0-52.0) % Plt Count 236 (130-400) K/uL BMP 11/09/24 11/09/24 16:21 17:52 Sodium 137 Potassium TNP 4.5 Chloride 101 Carbon Dioxide 27 BUN 14 Creatinine 0.95 Glucose 249 H Calcium 9.3 Liver Function 11/09/24 11/09/24 Range/Units 16:21 17:52 Total Bilirubin 1.1 H (0.2-1.0) mg/dl AST TNP 18 ALT 26 (7-52) U/L Alkaline Phosphatase 49 (34-104) U/L Albumin 4.3 (3.4-5.0) gm/dl Diagnostic Findings Chest X-Ray 11/09/24 16:13 Clinical History: Chest pain Technique: A frontal view of the chest was obtained Comparison is made to the prior examination dated 09/29/2024 Findings: There are no confluent pulmonary infiltrates. The heart size is within normal limits. No pleural effusion or pneumothorax is seen. There is no definite pulmonary nodule. No fracture is noted. No foreign body is seen Impression: No active disease Electronically signed by Twan Alicia 11-09-2024 4:49 PM ECG Additional Comments: sinus rhythm, no acute ST changes noted per my interpretation
--- NOTE | 2024-11-09 19:59 | Communication Note ---
Date of Service: November 09, 2024 Attending Addendum: Case reviewed with the advanced practitioner. I have personally performed a history and physical examination on the patient. I have reviewed the advanced practitioner's documentation on the date of service referenced in note, and I agree with, and take responsibility for the plan of care. please refer to her notes for full details patient seen and examined, records reviewed by myself as well on exam, patient seen resting in bed, comfortable, not in distress feels better since arrival at the ER no active chest pain, shortness of breath, dizziness, nausea no other symptoms VS noted and reviewed General- oriented x 3, not in distress, speaks in sentences with no effort or accessory muscle use Head- atraumatic Eyes- PERRL, EOMI, anicteric ENT- oropharynx clear Neck- supple, no JVD, no adenopathy, no thyromegaly; carotids +2/2, no bruits appreciated surgical scar lower anterior neck Lungs- clear to auscultation bilaterally, no rales/wheezes Heart- normal rate, regular rhythm; no murmur, no gallop, no rub appreciated Abdomen- normal bowel sounds, nondistended, soft, nontender, no masses or hepatosplenomegaly Extremities- no pretibial edema, no calf tenderness; peripheral pulses intact Neuro- alert, oriented x 3; CN 2-12 grossly intact; motor 5/5 bilaterally;sensation 100% on all extremities; no other gross focal neurologic deficits Skin- warm & dry all labs, imaging noted and reviewed ASSESSMENT AND PLAN> EASY FATIGABILITY EPISODE OF CHEST PAIN troponin 21.9 -->2nd pending EKG no signs of acute ischemia or infarct Echocardiogram Had a telemedicine consult with Dr. Dennis in November 02, plan was to perform an exercise stress test and Zio patch placement Will consult cardiology for inpatient evaluation Easy fatigability, generalized weakness, generalized muscle weakness? TSH normal Check cortisol, vitamin B12, folate, vitamin D Check vitals pulse oximetry (had negative sleep study a few years ago as per patient) If above workup negative, may need to consult neurology service other diagnoses and plan of care as per advanced practitioner's notes Rashid Gomez MD
[2024-11-09] MEDS ORDERED: GLUCOSE 10 TAB/TUBE PO PRN (20:42)
[2024-11-09] MEDS ORDERED: CARBOHYDRATES FOR HYPOGLYCEMIA PO PRN (20:42)
[2024-11-09] MEDS ORDERED: DEXTROSE 50% 50 ML SYRINGE IV PRN (20:42)
[2024-11-09] MEDS ORDERED: GLUCAGON FOR INJ 1 MG VIAL SQ PRN (20:42)
[2024-11-09] MEDS ORDERED: NITROGLYCERIN SL 0.4 MG/TAB TAB SL PRN (20:42)
[2024-11-09] MEDS ORDERED: GLUCOSE 40% GEL 15 GM TUBE PO PRN (20:42)
[2024-11-09] MEDS ORDERED: POLYETHYLENE (MIRALAX) 17 GM PACK PO PRN (20:42)
[2024-11-09 21:12] LABS: Cortisol Random 7.99 mcg/dl
[2024-11-09 21:15] LABS: Folate (Folic Acid),Ser orPlas 9.58 ng/ml (>5.38)
[2024-11-09] MEDS: ENOXAPARIN INJ 40 MG/0.4 ML SYR SQ SCH (21:23)
[2024-11-09] MEDS: LANTUS PER UNIT CHARGE SQ SCH (21:23)
[2024-11-09] MEDS: INSULIN ASPART PER UNIT CHARGE SC SCH (21:23)
--- OUTSIDE RECORDS SUMMARY | 2024-11-09 23:05 | External Medical Summary | Summary of Care ---
Author Name Unknown Organization [facility] Address [address] [place] [address] Phone [phone] Care Team Providers Care Clinical Services Director Name Role Phone Cal Canales MD Primary Care Provider +1- [phone] Reason for Visit * Reason Onset Date Comments Blood Pressure Check 10/28/2024 EKG 10/28/2024 Encounter Details Date Type Department Care Team (Late st Contact Info) Description 10/28/2024 Telephone [facility] [place] [address] [facility] [place] [address] Cal Canales MD [address] [place] [address] Blood Pressure Check; EKG Allergies Active Allergy Reactions Criticality Noted Date Comments Exenatide 07/07/2019 Sulfa Antibiotics 02/06/2005 rash- immediate documented as of this encounter (statuses as of 10/28/2024) Medications ONETOUCH ULTRA 2 W/DEVICE KITIndications:D M type 2, not at goal (HCC) DIRECTED 1 Kit 0 04/03/20 10 Active ALEVE 220 MG PO TABS Two pills by mouth twice a day with food as needed for pain 120 Tab 5 11/06/20 12 Active COQ10 200 MG PO CAPS 1 daily 1 Cap 0 11/06/20 12 Active VITAMIN D 1000 UNITS PO CAPSIndications: Vitamin D deficiency 1 capsule daily 30 Cap 11 10/28/20 13 Active B-12 1000 MCG PO TBCRIndications: Anxiety state 1 TABLET DAILY 12/18/20 13 Active fluticasone (FLONASE) 50 MCG/ACT nasal sprayIndications :Eustachian tube dysfunction,Vert igo Administer 2 Sprays into each nostril daily. 1 Inhaler 5 04/19/20 15 Active Aspirin 81 MG Oral Tablet Chewable Take 1 Tablet by mouth in the morning. with food.. 100 Tab 5 04/11/20 21 Active OneTouch Verio In Vitro Strip (Glucose Blood) Test 3 times daily Dx E11.9 300 Strip 3 07/25/20 22 Active OneTouch Delica Lancets 33G Test 3 times daily Dx E11.9 300 Each 3 07/25/20 22 Active Rosuvastatin Calcium 10 MG Oral Tablet (Crestor)Indicat ions:Type 2 diabetes mellitus with hemoglobin A1c goal of less than 7.5% (HCC) TAKE 1 TABLET BY MOUTH IN THE MORNING 90 Tablet 4 03/02/20 24 Active metFORMIN HCl 500 MG Oral Tablet (Glucophage) TAKE 2 TABLETS BY MOUTH TWICE DAILY WITH MORNING AND EVENING MEALS 360 Tablet 4 03/02/20 24 Active Pioglitazone HCl 30 MG Oral Tablet (Actos)Indicatio ns:Type 2 diabetes mellitus with hemoglobin A1c goal of less than 7.5% (HCC) Take 1 Tablet by mouth in the morning. 90 Tablet 1 04/09/20 24 Active Tresiba FlexTouch 200 UNIT/ML Subcutaneous Solution Pen-injector (Insulin Degludec)Indicat ions:Type 2 diabetes mellitus with hemoglobin A1c goal of less than 7.5% (HCC) Inject 68 Units under the skin in the morning. 30 mL 3 04/09/20 24 Active Additional Information Patient taking differently: 62 UnitsSubcutaneous Daily(AM), Reported on 10/23/2024 Zoster Vac Recomb Adjuvanted 50 MCG/0.5ML Intramuscular Suspension Reconstituted (Shingrix)Indica tions:Need for vaccination for zoster Inject 0.5 mL into a large muscle now and repeat dose in 60 to 180 days 1 Each 1 04/09/20 24 Active Additional Information Patient not taking.Reported on 10/23/2024 Levothyroxine Sodium 112 MCG Oral Tablet (Levoxyl) Take 1 Tablet by mouth in the morning. 90 Tablet 3 06/23/20 24 Active Icosapent Ethyl 1 GM Oral Capsule (Vascepa)Indicat ions:Hypertrigly ceridemia Take 2 Capsules by mouth in the morning. 180 Capsule 3 06/23/20 24 Active Citalopram Hydrobromide 20 MG Oral Tablet (CeleXA)Indicati ons:Anxiety state TAKE 1 TABLET BY MOUTH TWICE DAILY 180 Tablet 2 08/11/20 24 Active Losartan Potassium 100 MG Oral Tablet (Cozaar) Take 1 tablet by mouth once daily 90 Tablet 08/24/20 24 Active hydroCHLOROthiaz ryan 25 MG Oral Tablet (Hydrodiuril)Ind ications:HTN, goal below 140/90 Take 1 Tablet by mouth in the morning. 30 Tablet 11 10/28/20 24 Active documented as of this encounter (statuses as of 10/28/2024) Active Problems Problem Noted Date Diagnosed Date NAFLD (nonalcoholic fatty liver disease) 022 Hx of nonmelanoma skin cancer 12/10/2019 Overview (12/10/2019): basal cell carcinoma (L post auricular scalp 11/25) Actinic keratosis 12/10/2019 Moderate episode of recurrent major depressive d isorder 04/14/2019 Type 2 diabetes mellitus wit hout complication, with long-term current use of insulin 04/14/2019 History of thyroid cancer 04/14/2019 Dyslipidemia 09/14/2018 HTN, goal below 140/90 04/23/2016 Overview: Per HTN Protocol Type 2 diabetes mellitus wit h hemoglobin A1c goal of less than 7.5% 08/22/2015 Overview (03/12/2016): ICD-10 update of inactive term Neurodermatitis 05/20/2014 Chronic rhinitis 05/07/2014 Vitamin D deficiency 10/06/2013 Anxiety state 12/08/2012 Postsurgical hypothyroidism 11/08/2011 Family history of cardiovascular disease 009 FAMILY HX-GI MALIGNANCY 07/26/2003 Adjustment disorder with mixed anxiety and depre ssed mood documented as of this encounter (statuses as of 10/28/2024) Resolved Problems Problem Noted Date Diagnosed Date Resolved Date Obesity, Class I, BMI 30.0-3 4.9 (see actual BMI) 05/21/2017 08/25/2018 Overview (05/21/2017): bmi= 31.28 05/21/17 Need for pneumococcal vaccination 05/21/2017 01/16/2019 Need for shingles vaccine 05/21/2017 Acute sinusitis 05/07/2016 05/21/2017 Otitis externa of left ear 05/18/2015 0 05/21/2017 Otalgia of left ear 05/18/2015 05/21/20 17 Overweight (BMI 25.0-29.9) 11/22/2014 0 05/21/2017 Overview (11/22/2014): BMI= 29.02 11/22/14 DM type 2, not at goal 11/22/201405/21 HTN, goal below 140/80 12/18/201304/26 Overview: Per HTN Protocol Overweight (BMI 25.0-29.9) 10/28/2013 0 05/21/2017 Overview (10/28/2013): bmi= 26.99 10/28/13 Other general medical examin ation for administrative purposes 07/14/2013 05/21/2017 Major depressive disorder 12/08/2012 Overview (09/03/2017): ICD-10 update of inactive term DM type 2, not at goal 12/08/201205/18 Other specified pre-operative examination 11/12/2012 05/21/2017 Obesity, Class I, BMI 30.0-3 4.9 (see actual BMI) 11/06/2012 05/21/2017 Overview (11/06/2012): BMI= 31.14 11/06/12 Postsurgical hypothyroidism 11/06/2012 05/21/2017 Adjustment disorder with depressed mood 11/06/2012 12/08/2012 Screen for colon cancer 11/06/201205/11 Adenomatous polyp of colon 11/06/2012 0 01/16/2019 Routine medical exam 11/06/2012 017 HTN, goal below 140/80 06/30/201211/06 Overview: Per HTN Protocol #27. Type 2 diabetes mellitus wit h hemoglobin A1c goal of less than 7.0% 05/05/2012 11/06/2012 Overview (03/06/2016): ICD-10 update of inactive term Ganglion 05/05/2012 03/27/2023 Overweight (BMI 25.0-29.9) 11/08/2011 0 05/21/2017 Overview (11/08/2011): BMI= 29.99 11/08/11 DJD (degenerative joint disease) 11/08/2011 05/21/2017 HX OF MALIGN NEOPL THYROID 04/30/2011 0 05/21/2017 OVERWEIGHT, BMI= 29.99 10/10/10 10/10/2010 05/21/2017 Pain in limb 10/10/2010 05/21/2017 Need for prophylactic vaccin ation and inoculation against other specified disease 04/03/2010 05/21/2017 Screening for prostate cancer 04/03/2010 05/21/2017 Screening for prostate cancer 04/03/2010 05/21/2017 HTN, GOAL BELOW 130/80 12/08/200907/03 Overview (12/08/2009): Per HTN Taxonomy. Benign neoplasm of colon 06/06/200909/2017 Overview (06/15/2009): villous adenoma/repeat colonoscopy in 6 MONTHS SINUS ARHYTHMIA 03/03/2009 05/21/2017 Palpitations 03/03/2009 05/21/2017 Type 2 diabetes mellitus wit h hemoglobin A1c goal of less than 7.0% 03/03/2009 05/05/2012 Overview (03/06/2016): ICD-10 update of inactive term DM type 2, not at goal 02/02/200911/08 METATARSALGIA 02/02/2009 05/21/2017 PAIN IN LIMB, RIGHT FOOT 02/02/200909/2017 Family history of cardiovascular disease 02/02/2009 05/21/2017 CELLULITIS, MILD, RIGHT UPPER LID 10/14/2007 05/21/2017 R/O STYE 10/14/2007 05/21/2017 Need for influenza vaccination 10/29/2006 05/21/2017 HTN, goal below 140/90 01/11/200612/08 Overview (12/08/2009): Per HTN Taxonomy. AC MAXILLARY SINUSITIS, RIGHT 12/04/2005 05/21/2017 DYSFUNCT EUSTACHIAN TUBE 12/04/200509/2017 ACUTE URI NOS 12/04/2005 12/30/2008 Overview (12/30/2008): Resolved per Benign Acute Dxs Protocol #3 Headache 12/04/2005 05/21/2017 Overview (02/01/2016): ICD-10 update of inactive term ELEV BL PRES W-O HYPERTN 11/23/2005 ADVANCE DIRECTIVE INFORMATION 06/25/2005 05/21/2017 Overview (06/25/2005): No, Advance Directive brochure given to patient at prior appointment. ACUTE SINUSITIS NOS 02/06/2005 12/30/19 09 Overview (12/30/2008): Resolved per Benign Acute Dxs Protocol #3 Major depressive disorder, r ecurrent episode, moderate 01/09/2005 05/05/2012 GENERALIZED ANXIETY DIS 01/09/200505/11 DIVERTICULOSIS OF COLON 12/08/200306/2019 JOINT PAIN-SHLDER,RIGHT 11/09/200305/11 ROTATOR CUFF SYND NOS 11/09/20032016 Spasm of muscle 11/09/2003 05/21/2017 POSTSURGICAL HYPOTHYROID 07/26/2003 PARATHYROID DISORDER NOS 07/26/200309/2017 MALIGN NEOPL THYROID 07/26/2003 011 Precordial pain 07/26/2003 05/21/2017 ROUTINE MEDICAL EXAM 07/26/2003 012 Disorder of parathyroid gland 07/26/2003 09/28/2022 Malignant neoplasm of thyroid gland 07/26/2003 04/14/2019 SCREEN MAL NEOP-RECTUM 07/26/200301/19 Overview (01/19/2009): Resolved per Screening Diagnosis Protocol #6 Screening for prostate cancer 07/26/2003 01/19/2009 Overview (01/19/2009): Resolved per Screening Diagnosis Protocol #6 ABN LIVER FUNCTION STUDY 07/26/200309/2017 Hypothyroidism 02/02/2002 10/10/2010 Type 2 diabetes mellitus wit h hemoglobin A1c goal of less than 7.0% 11/22/2014 Overview (03/06/2016): ICD-10 update of inactive term documented as of this encounter (statuses as of 10/28/2024) Immunizations Name Administration Dates Next Due COVID-19, MRNA-LNP, PF, 30 M CG/0.3 mL, 12 YRS AND ABOVE, IM (PFIZER-Comirnaty) 09/25/2023 Pneumococcal Conjugate Vacc, 13 Valent (Prevnar) 08/15/2018 Pneumococcal Polysaccharide PPV23 (Pneumovax) 05/21/2017,04/03/2010 Season Influenza, Quad, PF, Adjuvanted, 65+ Yrs, IM (FLUAD) 08/16/2020 Seasonal Influenza Vac., MDV , IM, 0.5 mL (Fluzone) 09/20/2014,09/15/2013,10/11/2012,09/11,08/25/2010 Seasonal Influenza, High Dos e, Trivalent, PF, IM (Fluzone HD) 08/21/2024 Seasonal Influenza, Quadriva lent Hd (Fluzone Hd) 09/25/2023,09/28/2022,09/28/2021 Seasonal Influenza, Quadriva lent, No Preserve, IM 08/27/2018 Seasonal Influenza, Trivalen t, Adjuvanted, 65+ YRS, PF, (Fluad) 09/29/2019 TDAP (age 10 and older)(Boostrix) 03/28/2022 TDAP, Age 7 and older, IM (Adacel) 07/05/2010 documented as of this encounter Social History Tobacco Use Types Packs/Day Years Used Date Smoking Tobacco: Former Cigarettes 0.5 30 1 - 08/11/2017 Smokeless Tobacco: Never Alcohol Use Standard Drinks/Week Comments Yes 0 (1 standard drink = 0.6 oz pur e alcohol) occasionally PHQ-2 Answer Date Recorded PHQ Adult Total Score 0 02/17/2024 Hunger Vital Sign Answer Date Recorded Within the past 12 months, y ou worried that your food would run out before you got the money to buy more. Never true 03/27/20 23 Within the past 12 months, t he food you bought just didn't last and you didn't have money to get more. Never true 03/27/2023 Sex and Gender Information Value Date Recorded Sex Assigned at Male 05/18/2020 3:38 PM EDT Legal Sex Male 5:22 AM EST Gender Identity Male 05/18/2020 3:38 PM EDT Sexual Orientation Straight 03/27/2023 7: 20 AM EDT documented as of this encounter Miscellaneous Notes * Telephone Encounter - Amada Kevin LPN - 10/28/2024 12:30 PM EST Patient was notified and verbalized understanding. * Telephone Encounter - Riki Orona MD - 10/28/2024 11:39 AM EST Blood pressure elevated on automatic cuff and on manual cuff. Recommend starting HCTZ 25 mg daily. Return to care in 2 weeks for BMP to monitor renal function and electrolytes. Order has been placed.Continue losartan. HCTZ sent to [facility]. Riki Orona MD * Telephone Encounter - Jessica Slaughter LPN - 10/28/2024 10:43 AM EST ekg done as per dr's order Pt tolerated well. Pt here for nurse visit for blood pressure check due to elevated blood pressure at last office visit. B/P 183/95 Pulse 65 this is with automated cuff Blood pressure cuff 162/92 BP Readings from Last 4 Encounters: 10/23/24 175/67 04/21/24 160/90 02/17/24 146/87 10/08/23 108/64 Telephone encounter made about this visit to provider. Patient aware that our office will call them back if there is a change with their medication or treatment, otherwise, no phone call will be made back to the patient. Pt has no complaints of chest tightness or pain. Pt states he does have lightheaded and weak. Please advise documented in this encounter Plan of Treatment Upcoming Encounters Date Type Department Care Team (Late st Contact Info) Description 11/13/2024 8:10 AM EST [facility] [address] [facility] [place] [address] [facility] [address] [facility] [place] [address] 11/13/2024 9:20 AM EST Office Visit Family Practice, [facility] [address] [facility] [address] Cal Canales MD [address] [place] [address] Scheduled Orders Name Type Priority Associated Diagnoses Orde r Schedule BASIC METABOLIC PANEL Lab Routine HTN, goal below 140/90 Expected: 10/28/2024 (Approximate), Expires: 10/28/2025 Scheduled Procedures Name Priority Associated Diagnoses Date/Ti me COLONOSCOPY FLEXIBLE PROXIMA L DIAGNOSTIC Recall History of colonic polyps Health Maintenance Due Date Last Done Comments Cologuard 1996 Fecal Occult Blood Test 1996 Sigmoidoscopy 1996 Zoster Vaccines (1 of 2) 2001 Diabetic Foot Exam 03/28/2023 03/28/2022, 0 05/18/2021, 09/29/2019, Additional history exists Diabetic Eye Exam 05/29/2023 05/29/2022, , 04/11/2020, Additional history exists COVID-19 Vaccine ( season) 2024 09/25/2023, 10/19/2021, 03/23/2021, Additional history exists GFR 11/20/2024 11/20/2023, 03/12, 11/19/2022, Additional history exists Adult Wellness Visit 02/16/2025 02/17/2024 Depression Monitoring 02/16/2025 02/17/2024 HbA1c 02/19/2025 08/21/2024, 05/11, 02/21/2024, Additional history exists Albumin/Creatinine Ratio 02/20/2025 024, 03/25/2023, 05/29/2022, Additional history exists TSH 05/22/2025 05/22/2024, 03/12, 11/19/2022, Additional history exists Colonoscopy 08/26/2026 08/26/2023, 08/11, 01/02/2018, Additional history exists Colorectal Cancer Screening 08/26/2026 Lipid Panel 11/20/2028 11/20/2023, 03/12, 05/29/2022, Additional history exists DTap/Tdap Vaccines (2 - Td or Tdap) 03/28/2032 03/28/2022, 07/05/2010 Pneumococcal Vaccine: 65+ Years Completed 08/15/2018, 05/21/2017, 04/03/2010 AAA Screening Completed 08/09/2022, 06/06/2017 RETIRED - COLONOSCOPY-EVERY 5 YRS AGES 18-100 Discontinued 08/26/2023, 08/26/2023, 01/02/2018, Additional history exists Influenza Vaccine (FLU shot) Completed 08/21/2024, 09/25/2023, 09/25/2023, Additional history exists HPV (Gardasil) Vaccine Aged Out No lo nger eligible based on patient's age to complete this topic Hepatitis B Vaccine Aged Out No longe r eligible based on patient's age to complete this topic MENINGOCOCCAL (MENACTRA/MENVEO) Aged Out No longer eligible based on patient's age to complete this topic documented as of this encounter Medical Devices Not on filedocumented as of this encounter Visit Diagnoses Diagnosis HTN, goal below 140/90- Primary Unspecified essential hypertension documented in this encounter Care Teams Clinical Services Director Relationship Specialty Start Date End Date Cal Canales MD [address] [address] PCP - General Family Medicine 01/23/19 documented as of this encounter
--- OUTSIDE RECORDS SUMMARY | 2024-11-09 23:05 | External Medical Summary | Summary of Care ---
Author Name Unknown Organization [facility] Address [address] [place] [address] Phone [phone] Care Team Providers Care Bag Machine Set Up Operator Name Role Phone Cal Canales MD Primary Care Provider +1- [phone] Reason for Visit * Reason Onset Date Comments Appointment 10/26/2024 Cardio appt with in 10 days Encounter Details Date Type Department Care Team (Late st Contact Info) Description 10/26/2024 Telephone [facility] [place] [address] [place] [address] MarchRiki MD [address] [facility] [place] [address] Appointment (Cardio appt within 10 days) Allergies Active Allergy Reactions Criticality Noted Date Comments Exenatide 07/07/2019 Sulfa Antibiotics 02/06/2005 rash- immediate documented as of this encounter (statuses as of 11/02/2024) Medications ONETOUCH ULTRA 2 W/DEVICE KITIndications:D M [...] PO TBCRIndications: Anxiety state 1 TABLET DAILY 10/28/20 13 Active fluticasone (FLONASE) 50 MCG/ACT nasal [...] once daily 90 Tablet 08/24/20 24 Active documented as of this encounter (statuses as of 11/02/2024) Active Problems Problem Noted Date Diagnosed Date [...] as of this encounter (statuses as of 11/02/2024) Resolved Problems Problem Noted Date Diagnosed Date [...] as of this encounter (statuses as of 11/02/2024) Immunizations Name Administration Dates Next Due COVID-19, [...] encounter Miscellaneous Notes * Telephone Encounter - Ernie Grubbs OSA - 11/02/2024 12:19 PM EST Tory, it appears this patient self-scheduled, and did a video visit. I did not check on Saturday, I was going to call today. The appt also appears to have been completed by Dr. Arriola. 11/02/2024 Status: Comp Time: 9:00 AM Length: 30 Visit Type: NEW VIDEO HOME [08068] Reg Status: Verified Copay: $0.00 Provider: Ronnie Arriola DO * Telephone Encounter - Tory Caldwell RN - 10/29/2024 12:14 PM EST TTC encounter created to inquire on appropriate time frame for needed evaluation. Will await recommendation. * Telephone Encounter - Ernie Grubbs OSA - 10/26/2024 11:28 AM EST Tory, this patient will be new to the office. His ECHO is scheduled on 10/27. May I offer a CUT OFF SAW OPERATOR appt with any provider? Thank you. * Telephone Encounter - Samreen Soria OSA - 10/26/2024 11:20 AM EST Please see message below from Dr. Riki Orona: Can we please schedule this patient for EKG and nurse BP check. Will determine additional BP meds based on BP at nurse visit. Per cardiology recommendation he should have echocardiogram and cardiology follow up as well. These orders were placed. EKG and Echocardiogram have been scheduled. Please call patient with an appointment as the referralstates he is to be seen within 10 days. Thank you. documented in this encounter Plan of Treatment Upcoming Encounters Date Type Department Care Team (Late st Contact Info) Description 11/12/2024 10:00 AM EST Laboratory Laboratory, [place] [address] [place] [phone] [place], Laboratory [address] [place] [address] [place] [address] 11/13/2024 8:10 AM EST Office Visit Pharmacy, [place] [address] [phone] [facility] [address] [place] [phone] 11/13/2024 9:20 AM EST Office Visit Family [facility], [place] [address] [place] [phone] Cal Canales MD [address] [facility] [place] [address] Scheduled Procedures Name Priority Associated Diagnoses Date/Ti [...] Not on filedocumented as of this encounter Care Teams Bag Machine Set Up Operator Relationship Specialty Start Date End Date Cal Canales MD PCP - General Family Medicine 01/23/19 documented as of this encounter
--- OUTSIDE RECORDS SUMMARY | 2024-11-09 23:05 | External Medical Summary | Summary of Care ---
Author Name Unknown Organization [facility] Address [address] [place] [address] Phone [phone] Care Team Providers Care Deliverer Merchandise Name Role Phone Cal Canales MD Primary Care Provider +1- [phone] Encounter Details Date Type Department Care Team (Late st Contact Info) Description 10/30/2024 Orders Only PATIENT PORTAL DO NOT DELETE THIS DEPT USED BY [place] [id number] Allergies Active Allergy Reactions Criticality Noted Date Comments Exenatide 07/07/2019 Sulfa Antibiotics 02/06/2005 rash- immediate documented as of this encounter (statuses as of 10/30/2024) Medications ONETOUCH ULTRA 2 W/DEVICE KITIndications:D M [...] daily Dx E11.9 300 Strip 3 07/25/20 Active OneTouch Delica Lancets 33G Test 3 [...] as of this encounter (statuses as of 10/30/2024) Active Problems Problem Noted Date Diagnosed Date [...] as of this encounter (statuses as of 10/30/2024) Resolved Problems Problem Noted Date Diagnosed Date [...] as of this encounter (statuses as of 10/30/2024) Immunizations Name Administration Dates Next Due COVID-19, [...] AM EDT documented as of this encounter Plan of Treatment Upcoming Encounters Date Type Department Care Team (Late st Contact Info) Description 11/13/2024 8:10 AM EST Office Visit Pharmacy, [place] [address] [facility] [place] [phone] [facility] [address] [facility] [place] [phone] 11/13/2024 9:20 AM EST Office Visit [place] [facility], [place] [address] [facility] [place] [address] Cal Canales MD [address] [facility] [place] [address] Scheduled Procedures Name Priority Associated Diagnoses Date/Ti [...] filedocumented as of this encounter Care Teams Deliverer Merchandise Relationship Specialty Start Date End Date Cal Canales MD PCP - General Family Medicine 01/23/19 documented as of this encounter
--- OUTSIDE RECORDS SUMMARY | 2024-11-09 23:05 | External Medical Summary | Summary of Care ---
Author Name Unknown Organization [facility] Address [address] [place] [address] Phone [phone] Care Team Providers Care Flow Worker Name Role Phone Cal Canales MD Primary Care Provider +1- [phone] Reason for Visit * Reason Onset Date Comments Appointment 10/26/2024 Cardio appt with in 10 days Encounter Details Date Type Department Care Team (Late st Contact Info) Description 10/26/2024 Telephone [facility] [address] [address] [place] [address] MarchRiki MD [address] [facility] [place] [address] Appointment (Cardio appt within 10 days) Allergies Active Allergy Reactions Criticality Noted Date Comments Exenatide 07/07/2019 Sulfa Antibiotics 02/06/2005 rash- immediate documented as of this encounter (statuses as of 10/29/2024) Medications ONETOUCH ULTRA 2 W/DEVICE KITIndications:D M [...] as of this encounter (statuses as of 10/29/2024) Active Problems Problem Noted Date Diagnosed Date [...] as of this encounter (statuses as of 10/29/2024) Resolved Problems Problem Noted Date Diagnosed Date [...] as of this encounter (statuses as of 10/29/2024) Immunizations Name Administration Dates Next Due COVID-19, [...] scheduled on 10/27. May I offer a VENIPUNCTURIST appt with any provider? Thank you. * [...] 11/13/2024 8:10 AM EST Office Visit Pharmacy, [address] [phone] [facility] [address] [place] [address] [place] [address] 11/13/2024 9:20 AM EST Office [facility] [place] [address] [phone] Cal Canales MD [address] [place] [address] Scheduled Procedures Name Priority Associated Diagnoses Date/Ti [...] filedocumented as of this encounter Care Teams Flow Worker Relationship Specialty Start Date End Date Cal Canales MD PCP - General Family Medicine 01/23/19 documented as of this encounter
--- OUTSIDE RECORDS SUMMARY | 2024-11-09 23:05 | External Medical Summary | Summary of Care ---
Author Name Unknown Organization [facility] Address [address] [place] [address] Phone [phone] Care Team Providers Care Engineered Wood Designer Name Role Phone Cal Canales MD Primary Care Provider +1- [phone] Reason for Visit * Reason Onset Date Comments Appointment 10/26/2024 Cardio appt with in 10 days Encounter Details Date Type Department Care Team (Late st Contact Info) Description 10/26/2024 Telephone [facility] [address]en Mc [address] [place] [address] MarchRiki MD [address] [facility] [place] [address] Appointment (Cardio appt within 10 days) Allergies [...] encounter Miscellaneous Notes * Telephone Encounter - Tory Caldwell RN - 10/29/2024 12:14 PM EST TTC encounter created to inquire on appropriate time frame for needed evaluation. Will await recommendation. * Telephone Encounter - Ernie Grubbs OSA - 10/26/2024 11:28 AM EST Tory, this patient will be new to the office. His ECHO is scheduled on 10/27. May I offer a PET CARE WORKER appt with any provider? Thank you. * [...] 8:10 AM EST Office Visit Pharmacy, [facility] [address] [place] [phone] [facility] [address] [facility] [place] [phone] 11/13/2024 9:20 AM EST Office Visit Family Practice, [facility] [address] Mc [address] [place] [phone] Cal Canales MD [address] [place] [address] Scheduled Procedures Name Priority Associated Diagnoses Date/Ti [...] filedocumented as of this encounter Care Teams Engineered Wood Designer Relationship Specialty Start Date End Date Cal Canales MD PCP - General Family Medicine 01/23/19 documented as of this encounter
--- OUTSIDE RECORDS SUMMARY | 2024-11-09 23:05 | External Medical Summary | Summary of Care ---
Author Name Unknown Organization [facility] Address [address] [place] [address] Phone [phone] Care Team Providers Care Auditing Manager Name Role Phone Cal Canales MD Primary Care Provider +1- [phone] Reason for Referral * Precert (Diagnostic Medical) (Within 10 days (routine)) - Authorized Specialty Diagnoses / Procedures Referred By Contac t Referred To Contact Cardiac Studies Diagnoses Other fatigue Type 2 diabetes mellitus with hemoglobin A1c goal of less than 7.5% (HCC) HTN, goal below 140/90 Dyslipidemia HILLMAN (dyspnea on exertion) Procedures ECHO, STRESS (EXERCISE) W/ PHYSICIAN Ronnie Arriola DO [address] [place] [address] Phone: tel: fax: Referral ID Status Reason Start Date Expiration Date V isits Requested Visits Authorized [id number] Authorized Precert 11/03/2024 999 999 Reason for Visit * Evaluate & Treat - Unlimited Visits (Within 10 days (routine)) - Authorized Specialty Diagnoses / Procedures Referred By Contact Referred To Contact Cardiovascular Medicine / Cardiology Diagnoses SOBOE (shortness of breath on exertion) Fatigue HTN, goal below 140/90 Riki Orona MD [address] [place] [address] Phone: tel: fax: Referral ID Status Reason Start Date Expiration Date Visits Requested Visits Authorized [id number] Authorized Specialty Services Required 4 [id number] Encounter Details Date Type Department Care Team (Late st Contact Info) Description 11/02/2024 9:00 AM EST Telemedicine Cardiology, [facility] [address] [place] [address] Ronnie Arriola, DO [address] [place] [address] Other fatigue*; Type 2 diabetes mellitus with hemoglobin A1c goal of less than 7.5% (HCC); HTN, goal below 140/90; Dyslipidemia; HILLMAN (dyspnea on exertion) Allergies Active Allergy Reactions Criticality Noted Date [...] AM EDT documented as of this encounter Progress Notes * Ronnie Arriola, DO - 11/02/2024 8:52 AM EST Patient location: HOME. I was in a hospital or clinic location. After connecting through [employer],patient was verified with two unique identifiers. Patient (or authorized legal screening representative) was then informed that this was a Telemedicine visit and being conducted confidentially over secure lines. Methods to assure confidentiality were taken. Patient acknowledged consent and understanding of pr ivacy and security of the Telemedicine visit. The patient agreed to participate. Duration of call: 26 minutes 11/02/2024 Cardiology Consultation History of Present Illness Livan Mayberry, presents as a new patient via telemedicine consultation as referred by Dr Orona with a history of progressive fatigue and weakness since the summer, which worsened in the fall. The fatigue was severe enough to cause muscle weakness and lightheadedness, occasionally progressing to dizziness. The symptoms were severe enough to prompt a visit to the emergency room. Initial screening suggested Lyme disease, for which the patient completed a 14-day course of antibiotics. However, subsequent follow-up and further testing ruled out Lyme disease with negative IgG and IgM tests. The patient's symptoms, including fatigue, weakness, and shortness of breath, have now led to a focus on potential cardiac issues. In the past, the patient experienced similar symptoms of extreme weakness and fatigue, which led alva overnight hospital stay and numerous tests, but no definitive diagnosis was made. At that time, the patient was referred for a stress test due to the persistent symptoms. The patient performed well on the stress test, with no evidence of decreased blood flow to the heart muscle and only minimal enlargement of the ascending aorta. The patient has a history of diabetes, with a recent hemoglobin A1c of 8%, slightly higher than theprevious value of 7.5%. The patient is also being treated for hypertension and high cholesterol, with recent improvement in triglyceride levels noted. The patient has a family history of aortic aneurysm, with both mother and paternal uncle affected. However, recent imaging of the patient's abdominal aorta showed normal measurements. The patient's symptoms significantly impact daily activities, such as climbing stairs, which can cause lightheadedness, weakness, and fatigue. Despite these challenges, the patient remains active, engaging in activities such as gardening and bicycling. The patient is scheduled to travel to [place] for two months, starting at the end of November. Patient Active Problem List Diagnosis FAMILY HX-GI MALIGNANCY Family history of cardiovascular disease Postsurgical hypothyroidism Anxiety state Adjustment disorder with mixed anxiety and depressed mood Vitamin D deficiency Chronic rhinitis Neurodermatitis Type 2 diabetes mellitus with hemoglobin A1c goal of less than 7.5% (HCC) HTN, goal below 140/90 Dyslipidemia Moderate episode of recurrent major depressive disorder (HCC) Type 2 diabetes mellitus without complication, with long-term current use of insulin (HCC) History of thyroid cancer Hx of nonmelanoma skin cancer Actinic keratosis NAFLD (nonalcoholic fatty liver disease) Past Medical History: Diagnosis Date Adjustment disorder with mixed anxiety and depressed mood Benign neoplasm of colon 06/06/09 villous adenoma/repeat colonoscopy in 6 MONTHS Benign neoplasm of colon 01/17/10 hyperplastic, repeat in one year due to HX of villous polyp Disorder of parathyroid gland (HCC) 1994 Diverticulosis of colon DM type 2, goal A1c below 7 HTN, goal below 140/80 12/18/2013 Malignant neoplasm of thyroid gland (HCC) 1994 Postsurgical hypothyroidism Precordial pain mid 90s Past Surgical History: Procedure Laterality Date COLONOSCOPY W/ BIOPSY (RECTUM) 01/17/2010 COLONOSCOPY W/ LESION REMOVAL, SNARE 06/06/2009 one 21 mm polyp in cecum, 4 2-4 mm polys in ileocecal valve, diverticulosis in sigmoid, villous adenoma/repeat colonoscopy in 6 MONTHS COLONOSCOPY W/ LESION REMOVAL, SNARE 01/17/2010 polyps x9, hyperplastic tissue, post polypectomy scar in cecum, previous TVA site, nodular mucosa ileocecal valve, previous TVA site,, diverticulosis, repeat in 1 year due to previous villous polyps COLONOSCOPY, DIAGNOSTIC (RECTUM) 11/08/2003 repeat in 5 years COLONOSCOPY, DIAGNOSTIC (RECTUM) 01/21/2013 repeat in 3 years- COLONOSCOPY FLEXIBLE PROXIMAL DIAGNOSTIC performed by Meggan Baker MD at ENDOSCOPY [facility] COLONOSCOPY, DIAGNOSTIC (RECTUM) 01/02/2018 inflammatory tissue on bx, diverticulosis, repeat 5 yrs/COLONOSCOPY FLEXIBLE PROXIMAL DIAGNOSTIC performed by Meggan Baker MD at ENDOSCOPY [facility] COLONOSCOPY, DIAGNOSTIC (RECTUM) 08/26/2023 diverticulosis/hemorrhoids/biopsies show adenomatous polyps/recall 3 years/COLONOSCOPY FLEXIBLE PROXIMAL DIAGNOSTIC performed by Devon De Leon MD at ENDOSCOPY [facility] COLONOSCOPY/REMOVE LESION 01/22/2011 repeat in 2 years-1 mm polyp,--benign post polypectomy scar noted coaguattion for tissue destruction using argon plasma was successful diverticulosis EXPLORE PARATHYROIDS/MEDIASTINUM 1994 REMOVAL OF THYROID GLAND 1994 Thyroidectomy SHOULDER ARTHROSCOPY SURGERY RIGHT TEAR REPAIR Family History Problem Relation Name Age of Onset Mental Disorder Mother depression Colon cancer Mother aortic aneurysm Mental Disorder Father "trinh" Heart Disorder Father 94 [place] Other (Other [Other]) Uncle (Unspecified) paternal of aortic aneuryism Mother : history of hypertension Social History Tobacco Use Smoking status: Former Current packs/day: 0.00 Average packs/day: 0.5 packs/day for 30.0 years (15.0 ttl pk-yrs) Types: Cigarettes Start date: 08/11/1987 Quit date: 08/11/2017 Years since quittin.2 Smokeless tobacco: Never Vaping Use Vaping status: Never Used Substance Use Topics Alcohol use: Yes Comment: occasionally Drug use: No Comment: curtailed mj 6 years ago- none since 05/14/01;coffee! Complete Review of Systems is as stated above, negative, or noncontributory. Review of patient's allergies indicates: Allergen Reactions Exenatide Sulfa [Sulfa Antibiotics] rash- immediate Current Outpatient Medications Medication Sig Dispense Refill Le[employer] Global 2 W/DEVICE KIT DIRECTED 1 Kit 0 ALEVE 220 MG PO TABS Two pills by mouth twice a day with food as needed for pain 120 Tab 5 COQ10 200 MG PO CAPS 1 daily 1 Cap 0 VITAMIN D 1000 UNITS PO CAPS 1 capsule daily 30 Cap 11 B-12 1000 MCG PO TBCR 1 TABLET DAILY fluticasone (FLONASE) 50 MCG/ACT nasal spray Administer 2 Sprays into each nostril daily. 1 Inhaler5 Aspirin 81 MG Oral Tablet Chewable Take 1 Tablet by mouth in the morning. with food.. (Patient not taking: Reported on 10/23/2024) 100 Tab 5 AkippaTouch Verio In Vitro Strip (Glucose Blood) Test 3 times daily Dx E11.9 300 Strip 3 OneTouch Delica Lancets 33G Test 3 times daily Dx E11.9 300 Each 3 Rosuvastatin Calcium 10 MG Oral Tablet (Crestor) TAKE 1 TABLET BY MOUTH IN THE MORNING 90 Tablet 4 metFORMIN HCl 500 MG Oral Tablet (Glucophage) TAKE 2 TABLETS BY MOUTH TWICE DAILY WITH MORNING AND EVENING MEALS 360 Tablet 4 Pioglitazone HCl 30 MG Oral Tablet (Actos) Take 1 Tablet by mouth in the morning. 90 Tablet 1 Tresiba FlexTouch 200 UNIT/ML Subcutaneous Solution Pen-injector (Insulin Degludec) Inject 68 Unitsunder the skin in the morning. (Patient taking differently: Inject 62 Units under the skin in the morning.) 30 mL 3 Zoster Vac Recomb Adjuvanted 50 MCG/0.5ML Intramuscular Suspension Reconstituted (Shingrix) Inject 0.5 mL into a large muscle now and repeat dose in 60 to 180 days (Patient not taking: Reported on 10/23/2024) 1 Each 1 Levothyroxine Sodium 112 MCG Oral Tablet (Levoxyl) Take 1 Tablet by mouth in the morning. 90 Tablet3 Icosapent Ethyl 1 GM Oral Capsule (Vascepa) Take 2 Capsules by mouth in the morning. 180 Capsule 3 Citalopram Hydrobromide 20 MG Oral Tablet (CeleXA) TAKE 1 TABLET BY MOUTH TWICE DAILY 180 Tablet 2 Losartan Potassium 100 MG Oral Tablet (Cozaar) Take 1 tablet by mouth once daily 90 Tablet 0 hydroCHLOROthiazide 25 MG Oral Tablet (Hydrodiuril) Take 1 Tablet by mouth in the morning. 30 Tablet 11 No current facility-administered medications for this visit. OBJECTIVE/PHYSICAL EXAMINATION: BP Readings from Last 4 Encounters: 10/28/24 183/95 10/23/24 175/67 04/21/24 160/90 02/17/24 146/87 Wt Readings from Last 3 Encounters: 10/23/24 103 kg (227 lb) 04/21/24 99.3 kg (219 lb) 02/17/24 99.1 kg (218 lb 6.4 oz) No in person physical examination was performed as this was a telemed visit Results LABS Lyme screen: Abnormal (09/29/2024) Lyme confirmatory: Normal (09/29/2024) HbA1c: 8% (08/2024) HbA1c: 7.5% (05/2024) Triglycerides: Within normal limits (11/2023) RADIOLOGY Chest x-ray: Normal (09/29/2024) CT abdomen: No abdominal aortic aneurysm, atherosclerosis of the abdomen (2021) DIAGNOSTIC EKG: Normal sinus rhythm at 71 bpm (09/29/2024) EKG: Normal sinus rhythm at 66 bpm with artifact in V3 (10/28/2024) Stress echocardiogram : No evidence of myocardial ischemia at high work load, 9 minutes on a Sy protocol, heart valves normal, ascending aorta minimally enlarged at 3.8 cm (04/2021) Latest Reference Range & Units 11/20/23 08:18 Triglycerides <=174 mg/dL 112 Cholesterol <200 mg/dL 136 Non-HDL Cholesterol <=159 mg/dL 103 HDL Cholesterol >39 mg/dL 33 (L) LDL Cholesterol <=129 mg/dL 81 (L): Data is abnormally low Summary of ttech of 10/27/24: The LV wall thickness is mildly increased (concentric). The left ventricular wall motion is normal. The qualitative LV ejection fraction is 55-59% (normal). The left atrium is normal sized (< 35 ml/m^2). The left ventricular diastolic function is mildly abnormal (grade I). Mild mitral regurgitation is present. There is trace tricuspid regurgitation. There is no evidence of pulmonary hypertension. Assessment & Plan Fatigue and Dyspnea on Exertion Livan reports progressive fatigue and lightheadedness since summer, worsening in the fall. Initial Lyme disease diagnosis was ruled out after confirmatory tests. EKGs and chest x-ray were normal. Previous stress test in April 2021 showed no evidence of decreased myocardial perfusion. Echocardiogram on October 27, 2024, showed mild mitral valve regurgitation. Given his diabetes, hypertension, and h yperlipidemia, coronary artery disease is a concern. Discussed risks of coronary artery disease, including myocardial infarction, and benefits of early detection and management. Explained that the exercise stress echocardiogram will assess current activity tolerance and compare with previous results. The 14-day Xyopatch monitor will screen for arrhythmias. Livan prefers to proceed with these tests before his trip to [place]. - Order exercise stress echocardiogram - Order 14-day Xyopatch monitor - Schedule follow-up call for test scheduling Diabetes Mellitus Diabetes diagnosed approximately 8 years ago. Most recent hemoglobin A1c in August 2024 was 8%, slightly higher than the previous 7.5% in May 2024. Livan is on medication for diabetes management. Discussed the importance of maintaining blood glucose levels to prevent complications such as neuropathy and retinopathy. Livan is scheduled for a follow-up appointment on November 12 for diabetes management. - Continue current diabetes medications - Monitor blood glucose levels - Follow-up appointment on November 12 for diabetes management Hypertension Hypertension managed with losartan and recently restarted hydrochlorothiazide. Blood pressure control is a concern. Discussed the benefits of blood pressure control in reducing the risk of stroke andheart disease. Livan has previously experienced side effects from hydrochlorothiazide but is willing to retry it. - Continue losartan - Continue hydrochlorothiazide - Monitor blood pressure regularly Hyperlipidemia Hyperlipidemia managed with rosuvastatin and Vascepa. Recent triglyceride levels within normal limits. Discussed the benefits of lipid control in reducing cardiovascular risk. Livan is due for an upcoming cholesterol panel in late October. - Continue rosuvastatin 10 mg daily - Continue Vascepa - Upcoming cholesterol panel in late October Abdominal Aortic Aneurysm Family history of abdominal aortic aneurysm. Previous imaging in 2016 and 2021 showed normal measurements. No recent imaging required at this time. Discussed the importance of monitoring for symptomsand the potential need for future imaging based on clinical indications. - No immediate action required - Monitor for symptoms and follow-up as needed General Health Maintenance None - Encourage regular physical activity as tolerated - Maintain a balanced diet - Follow-up for routine health screenings Follow-up - Schedule in-person visit after return from [place] in February. Ronnie Arriola DO Department of Cardiology Text in this note was generated using an [employer] documentation service. I discussed the use of a device to record and summarize our discussion today. All persons present during the encounter consented to its use. documented in this encounter Plan of Treatment Upcoming Encounters Date Type Department Care Team (Late st Contact Info) Description 11/12/2024 10:00 AM EST Laboratory Laboratory, [facility] [address] [place] [phone] [facility] [address] [place] [address] 11/13/2024 8:10 AM EST Office Visit Pharmacy, [place] [phone] [facility] [address] [facility] [place] [address] 11/13/2024 9:20 AM EST Office Visit Family Practice, [place] [phone] Cal Canales MD [address] [place] [address] Scheduled Orders Name Type Priority Associated Diagnoses Orde r Schedule ECHO, STRESS (EXERCISE) W/ PHYSICIAN Echocardiology Routine Other fatigue Type 2 diabetes mellitus with hemoglobin A1c goal of less than 7.5% (HCC) HTN, goal below 140/90 Dyslipidemia HILLMAN (dyspnea on exertion) Expected: 11/03/2024, Expires: 11/02/2025 EXTERNAL EKG 8 TO 15 DAYS Holter Routine Other fatigue Type 2 diabetes mellitus with hemoglobin A1c goal of less than 7.5% (HCC) HTN, goal below 140/90 Dyslipidemia HILLMAN (dyspnea on exertion) Expected: 11/03/2024 (Approximate), Expires: 11/02/2025 Scheduled Procedures Name Priority Associated Diagnoses Date/Ti [...] as of this encounter Visit Diagnoses Diagnosis Other fatigue- Primary Type 2 diabetes mellitus with hemoglobin A1c goal of less than 7.5% (HCC) HTN, goal below 140/90 Unspecified essential hypertension Dyslipidemia Other and unspecified hyperlipidemia HILLMAN (dyspnea on exertion) Other dyspnea and respiratory abnormality documented in this encounter Care Teams Auditing Manager Relationship Specialty Start Date End Date Cal Canales MD PCP - General Family Medicine 01/23/19 documented as of this encounter
--- OUTSIDE RECORDS SUMMARY | 2024-11-09 23:05 | External Medical Summary | Summary of Care ---
Author Name Unknown Organization [facility] Address [address] [place] [address] Phone [phone] Care Team Providers Care Document Clerk Name Role Phone Cal Canales MD Primary Care Provider +1- [phone] Reason for Visit * Reason Onset Date Comments Blood Pressure Check 10/28/2024 EKG 10/28/2024 Encounter Details Date Type Department Care Team (Late st Contact Info) Description 10/28/2024 Telephone [facility] [place] [address] [facility] [place] [address] Cal Canales MD [address] [place] [address] Blood Pressure Check; EKG Allergies Active Allergy [...] has been placed.Continue losartan. HCTZ sent to [employer]. Riki Orona MD * Telephone Encounter - [...] 11/13/2024 8:10 AM EST [facility] [address] [place] [phone] [facility] [address] [facility] [place] [address] 11/13/2024 9:20 AM EST Office Visit Family Practice, [facility] [address] [place] [phone] Cal Canales MD [address] [place] [address] Scheduled Orders Name Type Priority Associated Diagnoses [...] hypertension documented in this encounter Care Teams Document Clerk Relationship Specialty Start Date End Date Cal Canales MD PCP - General Family Medicine 01/23/19 documented as of this encounter
--- OUTSIDE RECORDS SUMMARY | 2024-11-09 23:05 | External Medical Summary | Summary of Care ---
Author Name Unknown Organization [facility] Address [address] [place] [address] Phone [phone] Care Team Providers Care Flower Pot Press Operator Name Role Phone Cal Canales MD Primary Care Provider +1- [phone] Reason for Visit * Reason Onset Date Comments Referral 10/29/2024 Encounter Details Date Type Department Care Team (Late st Contact Info) Description 10/29/2024 New Patient Triage (TACK PICKER USE ONLY) Cardiology, [facility] [address] [facility] [address] Carri Ly CRNP [address] [place] [address] Referral Allergies Active Allergy Reactions Criticality Noted Date Comments Exenatide 07/07/2019 Sulfa Antibiotics 02/06/2005 rash- immediate documented as of this encounter (statuses as of 11/05/2024) Medications ONETOUCH ULTRA 2 W/DEVICE KITIndications:D M [...] as of this encounter (statuses as of 11/05/2024) Active Problems Problem Noted Date Diagnosed Date [...] as of this encounter (statuses as of 11/05/2024) Resolved Problems Problem Noted Date Diagnosed Date [...] GENERALIZED ANXIETY DIS 01/09/200505/11 DIVERTICULOSIS OF COLON 12/08/2003 03/06/2019 JOINT PAIN-SHLDER,RIGHT 11/09/200305/11 ROTATOR CUFF SYND NOS [...] as of this encounter (statuses as of 11/05/2024) Immunizations Name Administration Dates Next Due COVID-19, [...] as of this encounter Progress Notes * Jinny Elaine DNP - 11/05/2024 8:25 PM EST Does patient need to be seen?: Yes Modality: Office visit Urgency: Within 10 days (routine) Discussed care plan with patient or proxy?: Yes scheduled Communicated with patient on Date (mm/dd/yyyy): 10/29/2024 at Time ([facility]): 1203 Jinny Elaine DNP, [place] [address] - [place] [facility] * Tory Caldwell RN - 10/29/2024 12:13 PM EST Discussed care plan with patient or proxy?: Yes, patient Communicated with patient on Date (mm/dd/yyyy): 10/29/2024 at Time ([facility]): 12:13. * Tory Caldwell RN - 10/29/2024 12:03 PM EST Images from the original note were not included. New Patient Triage What is the diagnosis/reason for referral?: SOBOE; Fatigue, HTN Enter order ID here: [id number] Specialty specific documentation: Cardiology Structural Heart 10/23/24 PCP Evaluation- 73-year-old male presents for ED follow up after being seen at [facility] on 09/29/2024 for progressive shortness of breath and generalized fatigue. He was treated for Lyme disease based on positive Lyme screen, however, IgM and IgG resulted negative and therefore discussed in office today that Lyme is not likely the culprit for his current symptomatology. Main concern is that he has had progressive fatigue and exertional shortness of breath over the last 2 months. Now is at the point where he would feel somewhat winded after going up a single flight of steps. Denies any chest pain at rest. No history of cardiac disease. His last stress echo was in 2020 which he had not show inducible ischemia. Risk factors for heart disease include age at 73, history of diabetes currently under suboptimal control with an A1c of 8.0, hypertension on losartan, dyslipidemia on Vascepa and statin, elevated BMI, family history of heart disease. Recommend cardiac evaluation through Cardiology. Reassuring EKG at [facility] on 09/29/2024. CAD referral placed. CAD Imaging Referral: Recommendations: Echocardiogram EKG - get updated EKG so updated baseline is on file in Epic Patient needs better BP management Refer to Cardiology for further evaluation and treatment 10/28/24 EK10/27/24 Echocardiogram: Evaluation requested for shortness of breath on exertion. EKG and echo obtained prior to appointment being scheduled. Please advise if close in slot should be utilized or if patient should be scheduled in next available new patient slot and placed on wait list based on recent hospital evaluatio andfindings on cardiac testing. documented in this encounter Plan of Treatment Upcoming Encounters Date Type Department Care Team (Late st Contact Info) Description 11/12/2024 10:00 AM EST Laboratory Laboratory, [place] [address] [place] [address] [phone] Yury Shepherd [address] [place] [address] 11/13/2024 8:10 AM EST Office Visit Pharmacy, [address] [facility] [place] [address] [facility] [address] [facility] [id number] 11/13/2024 9:20 AM EST Office Visit Family Practice, [place] [facility] [place] [address] [facility] [address] [place] [phone] Cal Canales MD [address] [facility] [address] 11/13/2024 11:00 AM EST Imaging Cardiac Studies, [address] [address] 11/13/2024 12:30 PM EST Nurse Only Ancillary [address] [place] [address] [facility], Nurse Fam Prac [address] [place] [address] Scheduled Procedures Name Priority Associated Diagnoses Date/Ti [...] or Tdap) 03/28/2032 03/28/2022, 07/05/2010 Pneumococcal Vaccine: 50+ Years Completed 08/15/2018, 05/21/2017, 04/03/2010 AAA Screening [...] filedocumented as of this encounter Care Teams Flower Pot Press Operator Relationship Specialty Start Date End Date Cal Canales MD PCP - General Family Medicine 01/23/19 documented as of this encounter
--- OUTSIDE RECORDS SUMMARY | 2024-11-09 23:06 | External Medical Summary | Summary of Care ---
Author Name Unknown Organization [facility] Address [address] [place] [address] Phone [phone] Care Team Providers Care Nut And Bolt Assembler Name Role Phone Cal Canales MD Primary Care Provider +1- [phone] Reason for Referral * Precert (Diagnostic Medical) (Within 10 days (routine)) - Authorized Specialty Diagnoses / Procedures Referred By Contac t Referred To Contact Cardiac Studies Diagnoses SOBOE (shortness of breath on exertion) Fatigue HTN, goal below 140/90 Procedures ECHO, COMPLETE (2D), TRANS-THORACIC Ramez Chowdhury DO [address] [place] [address] Phone: tel: fax: Referral ID Status Reason Start Date Expiration Date V isits Requested Visits Authorized [id number] Authorized Precert 11/23/2024 999 [id number] Encounter Details Date Type Department Care Team (Late st Contact Info) Description 10/23/2024 Orders Only Cardiology, [facility] [address] [place] [address] Ramez Chowdhury DO [address] [place] [address] SOBOE (shortness of breath on exertion)*; Fatigue; HTN, goal below 140/90 Allergies Active Allergy Reactions Criticality Noted Date Comments Exenatide 07/07/2019 Sulfa Antibiotics 02/06/2005 rash- immediate documented as of this encounter (statuses as of 10/23/2024) Medications ONETOUCH ULTRA 2 W/DEVICE KITIndications:D M [...] as of this encounter (statuses as of 10/23/2024) Active Problems Problem Noted Date Diagnosed Date [...] as of this encounter (statuses as of 10/23/2024) Resolved Problems Problem Noted Date Diagnosed Date [...] ANXIETY DIS 01/09/200505/11 DIVERTICULOSIS OF COLON 12/08/2003 03/0 06/2019 JOINT PAIN-SHLDER,RIGHT 11/09/200305/11 ROTATOR CUFF SYND NOS [...] as of this encounter (statuses as of 10/23/2024) Immunizations Name Administration Dates Next Due COVID-19, [...] as of this encounter Progress Notes * María Elena Loving, JAYLEN - 10/23/2024 2:27 PM EST Images from the original note were not included. CAD Imaging Referral Note Livan Mayberry is a 73 year old male who was referred by Dr. Riki Orona for evaluation of progressiveexertional shortness of breath. Reviewing Chief Bank Examiner: Dr. Ramez Chowdhury Assessment: Patient with progressive SOB on exertion, generalized fatigue, seen at [facility] and treated for Lyme disease. Current BP 175/67, last several readings in [facility] and [facility] records reviewed are elevated. Recommendations: Echocardiogram EKG - get updated EKG so updated baseline is on file in [facility] Patient needs better BP management Refer to Cardiology for further evaluation and treatment Orders placed: Echocardiogram Test location: [facility] or available outreach Referral priority: 1 month or less From Dr. Orona's Progress Note on 10/23/2024: Assessment and Plan 73-year-old male presents for ED follow up after being seen at [facility] [address] [facility] on 09/29/2024 for progressive shortness of breath [...] cardiac evaluation through Cardiology. Reassuring EKG at [facility] on 09/29/2024. CAD referral placed. 1. Exertional shortness of breath (Primary) - CAD IMAGING REFERRAL OP 2. Type 2 diabetes mellitus with hemoglobin A1c goal of less than 7.5% (HCC) 3. Dyslipidemia 4. HTN, goal below 140/90 5. Family history of cardiovascular disease 6. Moderate episode of recurrent major depressive disorder (HCC) Continue citalopram. History of Present Illness The patient is a 73 year old male with past medical history of type 2 diabetes, dyslipidemia, hypothyroidism, HTN, NAFLD, anxiety who presents for ED follow up. Patient was seen in the ED on 09/29/2024. Patient seen for fatigue and shortness of breath. SOB with any exertion progressively worsening over 2 months. Lyme positive. Given doxycycline x 14 days. Review of lab work shows IgM and IgG were both negative. Doing slightly better now. Still with achiness and significant fatigue. Falling asleep int he chairafter dinner which is different than prior. Still short of breath with exertion compared to baseline. Notes that he would have difficulty going up a flight of steps as he would feel winded at the top. He does feel like he can walk couple blocks on flat ground without becoming winded. Denies any lower extremity edema. No fevers, chills, other signs of systemic infection. No changes to his chronic medications recently. Patient Active Problem List Diagnosis FAMILY HX-GI [...] Actinic keratosis NAFLD (nonalcoholic fatty liver disease) Current Outpatient Medications Medication Sig Dispense Refill [employer] 2 W/DEVICE KIT DIRECTED 1 Kit 0 [...] taking: Reported on 10/23/2024) 100 Tab 5 [employer] Verio In Vitro Strip (Glucose Blood) Test 3 times daily Dx E11.9 300 Strip 3 [employer] Delica Lancets 33G Test 3 times daily [...] by mouth once daily 90 Tablet 0 No current facility-administered medications for this visit. The 10-year ASCVD risk score (Gallo POLLARD, et al., 2019) is: 60% Values used to calculate the score: Age: 73 years Sex: Male Is Non- : No Diabetic: Yes Tobacco smoker: No Systolic Blood Pressure: 175 mmHg Is BP treated: Yes HDL Cholesterol: 33 mg/dL Total Cholesterol: 136 mg/dL Cardiac Studies: EKG 09/29/2024 ([facility] ED record) CXR 09/29/2024 ([facility] ED record) CT Abd/Pelvis 08/09/2022 FINDINGS LOWER CHEST: HEART(visualized): Coronary arterial calcifications. Mitral annular calcification. LUNG BASES: Multiple small right lower lobe nodules in a tree-in-bud configuration with the largestmeasuring 5 millimeters on image 46 of series 10. ABDOMEN/PELVIS: LINES AND DEVICES: None LIVER: Hepatic steatosis. A 9 millimeter low-density lesion is present in the left hepatic lobe on image 38 of series 6 which is too small to characterize on the current examination but presumably represents the hepatic cyst present on the ultrasound performed the same day. SPLEEN: Unremarkable PANCREAS: Unremarkable ADRENALS: Unremarkable BILE DUCTS: Unremarkable GALLBLADDER: Cholelithiasis without any pericholecystic fluid to suggest acute calculus cholecystitis. KIDNEYS/URETERS: Assessment is limited due to absence of a 21 millimeter right renal cortical cyst is present. No hydroureteronephrosis. Few punctate densities are present in the course of bilateral ureters on either side of the midline in the pelvis which are probably small phleboliths. Mild perinephric fat stranding. BLADDER: 5 millimeter calculus is present at the bladder base just superior to the left vesicoureteral junction. There is circumferential wall thickening of the urinary bladder which is suboptimally distended. BOWEL: Ingested material is present. No small bowel obstruction. Normal appendix. Colonic diverticulosis without diverticulitis. LYMPH NODES: Unremarkable VESSELS: No abdominal aortic aneurysm. Atherosclerotic changes are present in the abdominal aorta. REPRODUCTIVE ORGANS: Enlarged prostate. PERITONEUM/RETROPERITONEUM: Unremarkable ABDOMINAL WALL/SOFT TISSUES: Fat containing umbilical hernia without any evidence of incarceration of the contained fat. BONES: No osseous destruction. Degenerative changes are present in the lumbar spine. A 12 millimeters sclerotic lesion is present in the left superior pubic ramus. Additional smaller sclerotic lesions are present in the left femoral head in the left iliac bone. IMPRESSION IMPRESSION 1. No small bowel obstruction. Normal appendix. 2. Cholelithiasis without any pericholecystic fluid to suggest acute calculus cholecystitis. 3. Small 5 millimeter calculus in the urinary bladder to the left of the midline. There is no grosshydroureteronephrosis. Mild perinephric fat stranding which is nonspecific finding likely a sequelaof prior infection/inflammation. No obstructing renal or ureteral calculus. Few punctate densities in the pelvis in the course of bilateral ureters probably represent small phleboliths rather than nonobstructing calculi. 4. Tree-in-bud nodules right lower lobe likely representing acute infectious/inflammatory bronchiolitis. 5. Hepatic steatosis. 6. Enlarged prostate. Correlate 7. Sclerotic bone lesions most likely bone islands. If there is concern for a sclerotic metastasis or if the patient has a known primary neoplasm then consider further evaluation with a bone scan. 8. Additional findings and details as above. Exercise Stress Echo 04/21/2021 Interpretation Summary The examination is adequate to evaluate the referral indication. The stress echo is negative for inducible ischemia. Catherine Treadmill Score = 9.0 (low-risk >+5, moderate risk -10 to +4, high-risk <-11). The qualitative LV ejection fraction is 60-64% (normal). The proximal ascending thoracic aorta is mildly enlarged. Stress Findings The stress EKG response was normal. The stress EKG response showed no evidence of ischemia. Occasional PACs were noted during stress. Baseline ECG was normal. Sinus rhythm was noted at rest. The stress test was terminated due to fatigue. No symptoms were noted. Heart rate response to stress was normal. Blood pressure response to exercise was normal. Exercise capacity is average . Catherine Treadmill Score = 9.0 (low-risk >+5, moderate risk - 10 to +4, high-risk <-11). María Elena Loving MS, [facility] Kettle Fry Cook Operator, Cardiology Imaging Program documented in this encounter Plan of Treatment Upcoming Encounters Date Type Department Care Team (Late st Contact Info) Description 11/13/2024 8:10 AM EST Office Visit Pharmacy, [place] [address] [place] [address] [facility] [address] [facility] [place] [address] 11/13/2024 9:20 AM EST Office Visit Family Practice, Cora [address] [place] [phone] Cal Canales MD [address] [place] [phone] Scheduled Orders Name Type Priority Associated Diagnoses Orde r Schedule ECHO, COMPLETE (2D), TRANS-THORACIC Echocardiology Routine SOBOE (shortness of breath on exertion) Fatigue HTN, goal below 140/90 Expected: 11/23/2024, Expires: 10/23/2025 Scheduled Procedures Name Priority Associated Diagnoses Date/Ti [...] as of this encounter Visit Diagnoses Diagnosis SOBOE (shortness of breath on exertion)- Primary Shortness of breath Fatigue Other malaise and fatigue HTN, goal below 140/90 Unspecified essential hypertension documented in this encounter Care Teams Nut And Bolt Assembler Relationship Specialty Start Date End Date Cal Canales MD [address] [place] [address] PCP - General Family Medicine 01/23/19 documented as of this encounter
--- OUTSIDE RECORDS SUMMARY | 2024-11-09 23:06 | External Medical Summary | Summary of Care ---
Author Name Unknown Organization [facility] Address [address] [place] [address] Phone [phone] Care Team Providers Care Admissions Assistant Name Role Phone Cal Canales MD Primary Care Provider +1- [phone] Reason for Visit * Reason Comments EKG Pt here for an EKG Blood Pressure Check Pt here today for a blood pressure check Encounter Details Date Type Department Care Team (Late st Contact Info) Description 10/28/2024 10:00 AM EST Nurse Only Ancillary Department, [place] [address] [place] [phone] [place], Nurse [address] [place] [address] EKG (Pt here for an EKG); Blood Pressure C... Allergies Active Allergy Reactions Criticality Noted Date [...] AM EDT documented as of this encounter Last Filed Vital Signs Vital Sign Reading Time Taken Comments Blood Pressure 183/95 10/28/2024 10:30 AM EST Pulse 65 10/28/2024 10:30 AM EST Temperature - - Respiratory Rate 18 10/28/2024 10:30 AM EST Oxygen Saturation 98% 10/28/2024 10:30 AM EST Inhaled Oxygen Concentration - - Weight - - Height - - Body Mass Index - - documented in this encounter Progress Notes * Jessica Slaughter LPN - 10/28/2024 10:22 AM EST ekg done as per dr's [...] states he does have lightheaded and weak. documented in this encounter Plan of Treatment Upcoming Encounters Date Type Department Care Team (Late st Contact Info) Description 11/13/2024 8:10 AM EST Office Visit Pharmacy, [address] [place] [phone] Cora [facility] [address] [facility] [place] [phone] 11/13/2024 9:20 AM EST Office Visit Family Practice, [place] [address] [place] [phone] Cal Canales MD [address] [place] [address] Scheduled Procedures Name Priority Associated Diagnoses Date/Ti [...] goal below 140/90- Primary Unspecified essential hypertension SOBOE (shortness of breath on exertion) Shortness of breath Fatigue Other malaise and fatigue documented in this encounter Care Teams Admissions Assistant Relationship Specialty Start Date End Date Cal Canales MD [address] [place] [address] PCP - General Family Medicine 01/23/19 documented as of this encounter
--- OUTSIDE RECORDS SUMMARY | 2024-11-09 23:06 | External Medical Summary | Summary of Care ---
Author Name Unknown Organization [facility] Address [address] [place] [address] Phone [phone] Care Team Providers Care Data Base Design Analyst Name Role Phone Cal Canales MD Primary Care Provider +1- [phone] Reason for Visit * Reason Onset Date Comments Blood Pressure Check 10/28/2024 EKG 10/28/2024 Encounter Details Date Type Department Care Team (Late st Contact Info) Description 10/28/2024 Telephone [facility] [address] [facility] [place] [address] Cal Canales MD [address] [place] [address] Blood Pressure Check; EKG Allergies Active Allergy [...] encounter Miscellaneous Notes * Telephone Encounter - Riki Orona MD - 10/28/2024 11:39 AM EST Blood pressure elevated on automatic cuff and on manual cuff. Recommend starting HCTZ 25 mg daily. Return to care in 2 weeks for BMP to monitor renal function and electrolytes. Order has been placed.Continue losartan. HCTZ sent to [facility]. Riki Orona MD * Telephone Encounter - [...] 11/13/2024 8:10 AM EST Office Visit Pharmacy, [place] [address] [facility] [place] [phone] Cora [facility] [address] [facility] [place] [phone] 11/13/2024 9:20 AM EST Office Visit Family Practice, [facility] [place] [address] [facility] [place] [phone] Cal Canales MD [address] [facility] [place] [phone] Scheduled Orders Name Type Priority Associated Diagnoses [...] hypertension documented in this encounter Care Teams Data Base Design Analyst Relationship Specialty Start Date End Date Cal Canales MD [address] [place] [address] PCP - General Family Medicine 01/23/19 documented as of this encounter
--- OUTSIDE RECORDS SUMMARY | 2024-11-09 23:06 | External Medical Summary | Summary of Care ---
Author Name Unknown Organization [facility] Address [address] [place] [address] Phone [phone] Care Team Providers Care Supervisor Advice Name Role Phone Cal Canales MD Primary Care Provider +1- [phone] Reason for Referral * Evaluate & Treat - Unlimited Visits (Within 10 days (routine)) - Authorized Specialty Diagnoses / Procedures Referred By Contact Referred To Contact Cardiovascular Medicine / Cardiology Diagnoses SOBOE (shortness of breath on exertion) Fatigue HTN, goal below 140/90 Lizett De La O MD [address] [place] [address] Phone: tel: fax: Referral ID Status Reason Start Date Expiration Date Visits Requested Visits Authorized [id number] Authorized Specialty Services Required 999 999 Question Answer Referral Priority Within 10 days (routine) Where should this appointment be scheduled? [facility] To which of the following clinics are you referring your patient? General Cardiology [facility] * [facility] (Diagnostic Medical) (Within 10 days (routine)) - Authorized Specialty Diagnoses / Procedures Referred By Contac t Referred To Contact Cardiac Studies Diagnoses SOBOE (shortness of breath on exertion) Fatigue HTN, goal below 140/90 Procedures ECHO, COMPLETE (2D), TRANS-THORACIC Lizett De La O MD [address] [place] [address] Phone: tel: fax: Referral ID Status Reason Start Date Expiration Date V isits Requested Visits Authorized [id number] Authorized Precert 10/26/2024 999 999 * [facility] (Diagnostic Medical) (Within 10 days (routine)) - Authorized Specialty Diagnoses / Procedures Referred By Contac t Referred To Contact Cardiac Studies Diagnoses SOBOE (shortness of breath on exertion) Fatigue HTN, goal below 140/90 Procedures ECHO, COMPLETE (2D), TRANS-THORACIC Ramez Chowdhury, DO [address] [place] [address] Phone: tel: fax: Referral ID Status Reason Start Date Expiration Date V isits Requested Visits Authorized [id number] Authorized Precert 11/23/2024 999 999 Encounter Details Date Type Department Care Team (Late st Contact Info) Description 10/23/2024 Orders Only Cardiology, [facility] [address] [place] [address] Ramez Chowdhury, DO [address] [place] [address] SOBOE (shortness of breath on exertion)*; Fatigue; HTN, goal below 140/90 Allergies Active Allergy Reactions Criticality Noted Date Comments Exenatide 07/07/2019 Sulfa Antibiotics 02/06/2005 rash- immediate documented as of this encounter (statuses as of 10/26/2024) Medications ONETOUCH ULTRA 2 W/DEVICE KITIndications:D M [...] as of this encounter (statuses as of 10/26/2024) Active Problems Problem Noted Date Diagnosed Date [...] as of this encounter (statuses as of 10/26/2024) Resolved Problems Problem Noted Date Diagnosed Date [...] as of this encounter (statuses as of 10/26/2024) Immunizations Name Administration Dates Next Due COVID-19, [...] encounter Progress Notes * María Elena Loving, TECH - 10/23/2024 2:27 PM EST Images from the original note were not included. CAD Imaging Referral Note Livan Mayberry is a 73 year old male who was referred by Dr. Lizett De La O for evaluation of progressiveexertional shortness of breath. Reviewing Cosmetics Counter Manager: Dr. Ramez Chowdhury Assessment: Patient with progressive SOB on exertion, generalized fatigue, seen at [facility] and treated for Lyme disease. Current BP 175/67, last several readings in [facility] and [facility] records reviewed are elevated. Recommendations: Echocardiogram EKG - get updated EKG so updated baseline is on file in [facility] Patient needs better BP management Refer to Cardiology for further evaluation and treatment Orders placed: Echocardiogram Test location: [facility] or available outreach Referral priority: 1 month or less From Dr. De La O's Progress Note on 10/23/2024: Assessment and Plan 73-year-old male presents for ED follow up after being seen at [facility] on 09/29/2024 for progressive shortness of breath [...] cardiac evaluation through Cardiology. Reassuring EKG at [facility] on 09/29/2024. CAD referral placed. 1. Exertional [...] Current Outpatient Medications Medication Sig Dispense Refill ONETOUCH ULTRA 2 W/DEVICE KIT DIRECTED 1 Kit 0 [...] taking: Reported on 10/23/2024) 100 Tab 5 OneTouch Verio In Vitro Strip (Glucose Blood) [...] Cholesterol: 136 mg/dL Cardiac Studies: EKG 09/29/2024 ([facility] ED record) CXR 09/29/2024 ([facility] ED record) CT Abd/Pelvis 08/09/2022 FINDINGS LOWER [...] +4, high-risk <-11). María Elena Loving MS, [facility] Saloonkeeper, Cardiology Imaging Program documented in this encounter Miscellaneous Notes * Addendum Note - Lizett De La O MD - 10/26/2024 7:39 AM ESTAddended by: LIZETT DE LA O on: 10/26/2024 07:39 AM Modules accepted: Orders documented in this encounter Plan of Treatment Upcoming Encounters Date Type Department Care Team (Late st Contact Info) Description 11/13/2024 8:10 AM EST Office Visit Pharmacy, [address] [place] [phone] Cora [facility] [address] [facility] [place] [address] 11/13/2024 9:20 AM EST Office Visit [facility], [place] [facility] [address] [place] [phone] Cal Canales MD [address] [place] [address] Scheduled Orders Name Type Priority Associated Diagnoses Orde r Schedule ECHO, COMPLETE (2D), TRANS-THORACIC Echocardiology Routine SOBOE (shortness of breath on exertion) Fatigue HTN, goal below 140/90 Expected: 11/23/2024, Expires: 10/23/2025 EKG EKG Routine SOBOE (shortness of breath on exertion) Fatigue HTN, goal below 140/90 Expected: 10/26/2024 (Approximate), Expires: 2025 ECHO, COMPLETE (2D), TRANS-THORACIC Echocardiology Routine SOBOE (shortness of breath on exertion) Fatigue HTN, goal below 140/90 Expected: 10/26/2024 (Approximate), Expires: 10/26/2025 Scheduled Procedures Name Priority Associated Diagnoses Date/Ti me COLONOSCOPY FLEXIBLE PROXIMA L DIAGNOSTIC Recall History of colonic polyps Scheduled Referrals Name Type Priority Associated Diagnoses Orde r Schedule CARDIOLOGY REFERRAL OP Referral Within 10 days (routine) SOBOE (shortness of breath on exertion) Fatigue HTN, goal below 140/90 Ordered: 10/26/2024 Health Maintenance Due Date Last Done Comments [...] hypertension documented in this encounter Care Teams Supervisor Advice Relationship Specialty Start Date End Date Cal Canales MD [address] [place] [address] PCP - General Family Medicine 01/23/19 documented as of this encounter
--- OUTSIDE RECORDS SUMMARY | 2024-11-09 23:06 | External Medical Summary | Summary of Care ---
Author Name Unknown Organization [facility] Address [address] [place] [address] Phone [phone] Care Team Providers Care Dope Weigh Operator Name Role Phone Cal Caanles MD Primary Care Provider +1- [phone] Reason for Visit * Reason Onset Date Comments Appointment 10/26/2024 Cardio appt with in 10 days Encounter Details Date Type Department Care Team (Late st Contact Info) Description 10/26/2024 Telephone [facility] [address] Mc [address] [place] [address] MarchRiki MD [address] [facility] [place] [address] Appointment (Cardio appt within 10 days) Allergies [...] scheduled on 10/27. May I offer a SENIOR WIND ENERGY CONSULTANT appt with any provider? Thank you. * [...] Care Team (Late st Contact Info) Description 10/27/2024 7:15 AM EST Cardiac Studies Cardiac Studies, [facility] [address] [place] [address] 10/28/2024 10:00 AM EST Nurse Only Ancillary Department, [address] [place] [phone] Nurse Cora [address] [facility] [place] [address] 11/13/2024 8:10 AM EST Office Visit Pharmacy, Cora [address] [facility] [place] [address] Cora [facility] [address] [facility] [place], [place] [phone] 11/13/2024 9:20 AM EST Office Visit Family Practice, [place] [facility] [address] [facility] [place] [phone] Cal Canales MD [address] [facility] [place], [place] [phone] Scheduled Procedures Name Priority Associated Diagnoses Date/Ti [...] filedocumented as of this encounter Care Teams Dope Weigh Operator Relationship Specialty Start Date End Date Cal Canales MD [address] [place] [address] PCP - General Family Medicine 01/23/19 documented as of this encounter
--- OUTSIDE RECORDS SUMMARY | 2024-11-09 23:06 | External Medical Summary | Summary of Care ---
Author Name Unknown Organization [facility] Address [address] [place] [address] Phone [phone] Care Team Providers Care Psychiatric Technician Name Role Phone Cal Canales MD Primary Care Provider +1- [phone] Reason for Referral * Ancillary Services (Within 10 days (routine)) - Authorized Specialty Diagnoses / Procedures Referred By Contac t Referred To Contact Cardiovascular Medicine Diagnoses Exertional shortness of breath Riki Orona MD [address] [place] [address] Phone: tel: fax: Referral ID Status Reason Start Date Expiration Date Visits Requested Visits Authorized [id number] Authorized Ancillary Services Required 4 999 999 Question Answer Referral Priority Within 10 days (routine) Where should this appointment be scheduled? [facility] How soon should this test be performed? 1 Month or Less Comments Not for rest Echo. Reason for Study (chest pain or anginal equivalent): progressive exertional shortness of breath Select the preferred exam: Stress Echo Exercise: ischemia, EF, wall motion, and structural heart disease Does the patient have a current EKG? Yes - [facility] on 09/29/2024, NSR Does the patient have a prior history of a stent or bypass? No Lab Results Component Value Date/Time CREATININE - GEISIN* 1.0 11/20/2023 08:18 AM CREATININE - GEISIN* 0.9 03/26/2019 12:00 AM CREATININE - GEISIN* 1.1 05/24/2016 02:20 PM CREATININE, RANDOM * 65 02/21/2024 09:56 AM CREATININE, RANDOM * 73 09/24/2012 10:39 AM Lab Results Component Value Date/Time BUN - [facility] 11 11/20/2023 08:18 AM JOSE L FISHER 16 05/24/2016 02:20 PM Reason for Visit * Reason Comments Emergency Department Follow-Up Patient i s here for an ER follow up from [facility] on 09/29/24. Encounter Details Date Type Department Care Team (Late st Contact Info) Description 10/23/2024 9:00 AM EST Office Visit [facility] Cora [address] [place] [phone] Riki Orona MD [address] [place] [address] Exertional shortness of breath*; Type 2 diabetes mellitus with hemoglobin A1c goal of less than 7.5% ([facility]); Dyslipidemia; HTN, goal below 140/90; Family history of cardiovascular disease; Moderate episode of recurrent major depressive disorder ([facility]) Allergies Active Allergy Reactions Criticality Noted Date Comments Exenatide 07/07/2019 Sulfa Antibiotics 02/06/2005 rash- immediate documented as of this encounter (statuses as of 10/23/2024) Medications ONETOUCH ULTRA 2 W/DEVICE KITIndications:D M type 2, not at goal ([facility]) DIRECTED 1 Kit 0 04/03/20 10 Active [...] 30 1 - 08/11/2017 Smokeless Tobacco: Never Tobacco Cessation:Counseling Given: Not Answered Alcohol Use Standard Drinks/Week Comments Yes 0 [...] Sign Reading Time Taken Comments Blood Pressure 175/67 10/23/2024 9:04 AM EST Pulse 73 10/23/2024 9:04 AM EST Temperature 36.6 C (97.8 F) 10/23/2024 9:04 AM ES T Respiratory Rate 16 10/23/2024 9:04 AM EST Oxygen Saturation 98% 10/23/2024 9:04 AM EST Inhaled Oxygen Concentration - - Weight 103 kg (227 lb) 10/23/2024 9:04 AM EST Height - - Body Mass Index 32.57 04/21/2024 9:50 AM EDT documented in this encounter Progress Notes * Riki Orona MD - 10/23/2024 9:06 AM EST Images from the original note were not included. Assessment and Plan 73-year-old male presents for ED follow up after being seen at [facility] on 09/29/2024 for progressive shortness of breath [...] cardiac evaluation through Cardiology. Reassuring EKG at [facility] on 09/29/2024. CAD referral placed. 1. Exertional shortness of breath (Primary) - CAD IMAGING REFERRAL OP 2. Type 2 diabetes mellitus with hemoglobin A1c goal of less than 7.5% (HCC) 3. Dyslipidemia 4. HTN, goal below 140/90 5. Family history of cardiovascular disease 6. Moderate episode of recurrent major depressive disorder (HCC) Continue citalopram. Wrap-Up Follow up with Dr. Canales in 3 weeks as schedule. History of Present Illness The patient is [...] No changes to his chronic medications recently. Physical Exam Vitals: 10/23/24 0904 Temp: 97.8 F (36.6 C) Pulse: 73 Resp: 16 SpO2: 98% BP: 175/67 Physical Exam Physical Exam Vitals reviewed. Constitutional: General: He is not in acute distress. Cardiovascular: Rate and Rhythm: Normal rate and regular rhythm. Heart sounds: No murmur heard. Pulmonary: Effort: Pulmonary effort is normal. No respiratory distress. Breath sounds: Normal breath sounds. Musculoskeletal: Cervical back: Neck supple. Right lower leg: No edema. Left lower leg: No edema. Lymphadenopathy: Cervical: No cervical adenopathy. Neurological: Mental Status: He is alert. This note has been completed in part utilizing [employer] Speech Voice Recognition Software. Due to technical limitations of the software, grammatical errors, random word insertions, prounoun errors, and incomplete sentences may occur. Any formal questions or concerns about the content, text, or information contained within the body of this dictation should be directly addressed to the provider for clarification. documented in this encounter Nursing Notes * Natalia Ruff LPN - 10/23/2024 9:03 AM EST .ikd Chief Complaint Patient presents with Emergency Department Follow-Up Patient is here for an ER follow up from [facility] on 09/29/24. documented in this encounter Plan of Treatment Upcoming Encounters Date Type Department Care Team (Late st Contact Info) Description 11/13/2024 8:10 AM EST [facility] [place] [facility] [address] [facility] [place] [phone] Cora [facility] [address] [place] [facility] [place] [address] 11/13/2024 9:20 AM EST Office Visit Family Practice, [facility] [address] [facility] [place] [phone] Cal Canales MD [address] [facility] [place] [phone] Scheduled Procedures Name Priority Associated Diagnoses Date/Ti me COLONOSCOPY FLEXIBLE PROXIMA L DIAGNOSTIC Recall History of colonic polyps Scheduled Referrals Name Type Priority Associated Diagnoses Orde r Schedule CAD IMAGING REFERRAL OP Referral Within 10 days (routine) Exertional shortness of breath Ordered: 10/23/2024 Health Maintenance Due Date Last Done Comments [...] as of this encounter Visit Diagnoses Diagnosis Exertional shortness of breath- Primary Shortness of breath Type 2 diabetes mellitus with hemoglobin A1c goal of less than 7.5% (HCC) Dyslipidemia Other and unspecified hyperlipidemia HTN, goal below 140/90 Unspecified essential hypertension Family history of cardiovascular disease Family history of other cardiovascular diseases Moderate episode of recurrent major depressive disorder (HCC) documented in this encounter Care Teams Psychiatric Technician Relationship Specialty Start Date End Date Cal Canales MD [address] [place] [address] PCP - General Family Medicine 01/23/19 documented as of this encounter
--- OUTSIDE RECORDS SUMMARY | 2024-11-09 23:06 | External Medical Summary | Summary of Care ---
Author Name Unknown Organization [facility] Address [address] [place] [address] Phone [phone] Care Team Providers Care Duck Bill Operator Name Role Phone Cal Canales MD Primary Care Provider +1- [phone] Reason for Visit * Reason Onset Date Comments Appointment 10/26/2024 Cardio appt with in 10 days Encounter Details Date Type Department Care Team (Late st Contact Info) Description 10/26/2024 Telephone [facility] [address] Mc [address] [place] [address] MarchRiki MD [address] [facility] [place] [address] Appointment (Cardio appt within 10 days) Allergies [...] scheduled on 10/27. May I offer a GREEN CHAIN OFFBEARER appt with any provider? Thank you. * [...] 7:15 AM EST Cardiac Studies Cardiac Studies, [facility] [address] [place] [address] 10/28/2024 10:00 AM EST Nurse Only Ancillary Department, [address] [place] [phone] Nurse Cora [address] [facility] [place] [address] 11/13/2024 8:10 AM EST Office Visit Pharmacy, Cora [address] [facility] [place] [address] Cora [facility] [address] [facility] [place], [place] [phone] 11/13/2024 9:20 AM EST Office Visit [facility] Practice, [place] [facility] [address] [facility] [place] [address] Cal Canales MD [address] [facility] [place], [place] [phone] Scheduled Procedures Name Priority Associated Diagnoses Date/Ti [...] filedocumented as of this encounter Care Teams Duck Bill Operator Relationship Specialty Start Date End Date Cal Canales MD [address] [place] [address] PCP - General Family Medicine 01/23/19 documented as of this encounter
--- OUTSIDE RECORDS SUMMARY | 2024-11-09 23:06 | External Medical Summary | Summary of Care ---
Author Name Unknown Organization [facility] Address [address] [place] [address] Phone [phone] Care Team Providers Care Wastewater Treatment Plant Instructor Name Role Phone Cal Canales MD Primary Care Provider +1- [phone] Reason for Referral * Evaluate & Treat - Unlimited Visits (Within 10 days (routine)) - Authorized Specialty Diagnoses / Procedures Referred By Contact Referred To Contact Cardiovascular Medicine / Cardiology Diagnoses SOBOE (shortness of breath on exertion) Fatigue HTN, goal below 140/90 Lizett De La O MD [address] [place] [address] Phone: tel: fax: Referral ID Status Reason Start Date Expiration Date Visits Requested Visits Authorized [id number] Authorized Specialty Services Required 999 999 Question [...] TRANS-THORACIC Lizett De La O MD [address] [place] [address] Phone: tel: fax: Referral ID Status Reason Start Date Expiration Date V isits Requested Visits Authorized [id number] Authorized Precert 10/26/2024 999 999 * Precert (Diagnostic Medical) (Within 10 days (routine)) - Authorized Specialty Diagnoses / Procedures Referred By Contac t Referred To Contact Cardiac Studies Diagnoses SOBOE (shortness of breath on exertion) Fatigue HTN, goal below 140/90 Procedures ECHO, COMPLETE (2D), TRANS-THORACIC Ramez Chowdhury, DO [address] [place] [address] Phone: tel: fax: Referral ID Status Reason Start Date Expiration Date V isits Requested Visits Authorized [id number] Authorized Precert 11/23/2024 999 999 Encounter Details Date Type Department Care Team (Late st Contact Info) Description 10/23/2024 Orders Only Cardiology, [facility] [address] [place] [address] Ramez Chowdhury, DO [address] [place] [address] SOBOE (shortness of breath on exertion)*; Fatigue; [...] as of this encounter Progress Notes * Lizett De La O MD - 10/26/2024 7:39 AM EST Can we please schedule this patient for EKG and nurse BP check. Will determine additional BP meds based on BP at nurse visit. Per cardiology recommendation he should have echocardiogram and cardiology follow up as well. These orders were placed. Lizett De La O MD * María Elena Loving TECH - 10/23/2024 2:27 PM EST Images from the original note were not included. CAD Imaging Referral Note Livan Mayberry is a 73 year old male who was referred by Dr. Lizett De La O for evaluation of progressiveexertional shortness of breath. Reviewing Systems Manager: Dr. Ramez Chowdhury Assessment: Patient with progressive SOB on exertion, generalized fatigue, seen at [facility] and treated for Lyme disease. Current BP 175/67, last several readings in [facility] and [facility] records reviewed are elevated. Recommendations: Echocardiogram EKG - get updated EKG so updated baseline is on file in [facility] Patient needs better BP management Refer to Cardiology for further evaluation and treatment Orders placed: Echocardiogram Test location: [facility] or available outreach Referral priority: 1 month or less From Dr. De La O's Progress Note on 10/23/2024: Assessment and Plan 73-year-old male presents for ED follow up after being seen at [facility] on 09/29/2024 for progressive shortness of breath [...] cardiac evaluation through Cardiology. Reassuring EKG at [facility] on 09/29/2024. CAD referral placed. 1. Exertional shortness of breath (Primary) - CAD IMAGING REFERRAL OP 2. Type 2 diabetes mellitus with hemoglobin A1c goal of less than 7.5% ([facility]) 3. Dyslipidemia 4. HTN, goal below 140/90 [...] Current Outpatient Medications Medication Sig Dispense Refill EverConnect 2 W/DEVICE KIT DIRECTED 1 Kit 0 [...] times daily Dx E11.9 300 Strip 3 MabayaTouch Delica Lancets 33G Test 3 times daily [...] 136 mg/dL Cardiac Studies: EKG 09/29/2024 ([facility] ED record) CXR 09/29/2024 ([facility] ED record) CT Abd/Pelvis 08/09/2022 FINDINGS [...] +4, high-risk <-11). María Elena Loving MS, [facility] Computer System Validation Specialist, Cardiology Imaging Program documented in this encounter Miscellaneous Notes * Addendum Note - Lizett De La O MD - 10/26/2024 7:39 AM ESTAddended by: LIZETT DE LA O on: 10/26/2024 07:39 AM Modules accepted: Orders documented in this encounter Plan of Treatment Upcoming Encounters Date Type Department Care Team (Late st Contact Info) Description 11/13/2024 8:10 AM EST Office Visit [place]acy, [place] [address] [facility] [place] [phone] Cor[facility] [address] [facility] [place] [address] 11/13/2024 9:20 AM EST Office Visit [facility], [place] [facility] [place] [facility] [place] [address] Cal Canales MD [address] [facility] [place] [address] Scheduled Orders Name Type Priority Associated Diagnoses [...] hypertension documented in this encounter Care Teams Wastewater Treatment Plant Instructor Relationship Specialty Start Date End Date Cal Canales MD [address] [place] [address] PCP - General Family Medicine 01/23/19 documented as of this encounter
--- OUTSIDE RECORDS SUMMARY | 2024-11-09 23:06 | External Medical Summary | Summary of Care ---
Author Name Unknown Organization [facility] Address [address] [place] [address] Phone [phone] Care Team Providers Care Tipple Greaser Name Role Phone Cal Canales MD Primary Care Provider [phone]- [phone] Reason for Visit * Reason Onset Date Comments Emergency Department Follow-Up 10/19/2024 Encounter Details Date Type Department Care Team (Late st Contact Info) Description 10/19/2024 Telephone [facility] [address] [facility] [place] [phone] Cal Canales MD [address] [place] [address] Emergency Department Follow-Up Allergies Active Allergy Reactions Criticality Noted Date Comments Exenatide 07/07/2019 Sulfa Antibiotics 02/06/2005 rash- immediate documented as of this encounter (statuses as of 10/21/2024) Medications ONETOUCH ULTRA 2 W/DEVICE KITIndications:D M [...] taking differently: 62 UnitsSubcutaneous Daily(AM), Reported on 05/22/2024 Zoster Vac Recomb Adjuvanted 50 MCG/0.5ML Intramuscular Suspension Reconstituted (Shingrix)Indica tions:Need for vaccination for zoster Inject 0.5 mL into a large muscle now and repeat dose in 60 to 180 days 1 Each 1 04/09/20 24 Active Levothyroxine Sodium 112 MCG Oral Tablet (Levoxyl) [...] as of this encounter (statuses as of 10/21/2024) Active Problems Problem Noted Date Diagnosed Date [...] as of this encounter (statuses as of 10/21/2024) Resolved Problems Problem Noted Date Diagnosed Date [...] as of this encounter (statuses as of 10/21/2024) Immunizations Name Administration Dates Next Due COVID-19, [...] encounter Miscellaneous Notes * Telephone Encounter - Samreen Soria OSA - 10/21/2024 3:27 PM EST Done. 10/21/2024 * Telephone Encounter - Arlen Cheek OSA - 10/19/2024 12:56 PM EST Patient needs an ED Follow-up. Did patient decline to see other providers in their home clinic? : NO If New Patient - Were surrounding clinics offered? Yes, no appts available within appropriate timeframe Please see call details. documented in this encounter Plan of Treatment Upcoming Encounters Date Type Department Care Team (Late st Contact Info) Description 10/23/2024 9:00 AM EST Office Visit Family [facility], [place] [phone] MarchRiki MD [address] [place] [address] 11/13/2024 8:10 AM EST Office Visit Pharmacy, [place] [phone] [place] [address] 11/13/2024 9:20 AM EST Office Visit [facility] [place] [facility] [address] [place] [phone] Cal Canales MD [address] [place] [id number] Scheduled Procedures Name Priority Associated Diagnoses Date/Ti [...] filedocumented as of this encounter Care Teams Tipple Greaser Relationship Specialty Start Date End Date Cal Canales MD [address] [place] [address] PCP - General Family Medicine 01/23/19 documented as of this encounter
--- OUTSIDE RECORDS SUMMARY | 2024-11-09 23:06 | External Medical Summary | Summary of Care ---
Author Name Unknown Organization [facility] Address [address] [place] [address] Phone [phone] Care Team Providers Care Inspection And Testing Supervisor Name Role Phone Cal Canales MD Primary Care Provider [phone]- [phone] Reason for Visit * Reason Onset Date Comments Appointment 10/26/2024 Cardio appt with in 10 days Encounter Details Date Type Department Care Team (Late st Contact Info) Description 10/26/2024 Telephone [facility] [address] Mc [address] [place] [phone] MarchRiki MD [address] [facility] [place] [address] Appointment (Cardio appt within 10 days) Allergies [...] 7:15 AM EST Cardiac Studies Cardiac Studies, [facility] [address] [facility] [place] [address] 10/28/2024 10:00 AM EST Nurse Only Ancillary Department, [address] [place] [phone] Cor[place] Nurse [address] [place] [phone] 11/13/2024 8:10 AM EST Office Visit Pharmacy, [address] [place] [phone] [facility] [address] [place] [address] 11/13/2024 9:20 AM EST Office Visit [facility] [place] Eileen Mc [address] [place] [place] [phone] Cal Canales MD [address] [place] [id number] Scheduled Procedures Name Priority Associated Diagnoses Date/Ti [...] filedocumented as of this encounter Care Teams Inspection And Testing Supervisor Relationship Specialty Start Date End Date Cal Canales MD [address] [place] [address] PCP - General Family Medicine 01/23/19 documented as of this encounter
[2024-11-10 07:09] LABS: Hematocrit (blood only) 39.8 % (42.0-52.0); Hemoglobin 13.9 g/dl (14.0-18.0); Mean Corpuscular Hemoglobin 30.2 pg (25.0-34.0); Mean Corpuscular Hgb Conc 34.9 g/dL (32.0-36.0); Mean Corpuscular Volume 86.5 fL (80.0-100.0); Mean Platelet Volume 10.7 fL (9.4-12.4); Platelet Count 203 K/uL (130-400); RDW Coefficient of Variation 12.3 % (11.5-14.5); RDW Standard Deviation 39.1 fL (36.4-46.3); White Blood Count 6.13 K/ul (4.8-10.8)
[2024-11-10 07:23] LABS: BUN Creatinine Ratio 14.8 (10-20); Calcium 8.7 mg/dl (8.6-10.3); Chol HDL Ratio 3.9 (0-5); Creatinine Clr Calc Pharmacy 102.2 ml/min; Magnesium 1.7 mg/dl (1.7-2.4); Potassium 3.9 mmol/L (3.5-5.1)
[2024-11-10] MEDS: LEVOTHYROXINE SODIUM 112 MCG TABLET PO SCH (08:05)
[2024-11-10] MEDS: CHOLECALCIFEROL 25 MCG (1000 UNITS) TAB PO SCH (09:56)
[2024-11-10] MEDS: ASPIRIN 81 MG ECTAB PO SCH (09:56)
[2024-11-10] MEDS: CITALOPRAM 20 MG TAB PO SCH (09:56)
[2024-11-10] MEDS: LOSARTAN POTASSIUM 50 MG TAB PO SCH (09:57)
[2024-11-10] MEDS: CYANOCOBALAMIN (B-12) 500 MCG TABLET PO SCH (09:57)
[2024-11-10] MEDS: ROSUVASTATIN CALCIUM 10 MG TAB PO SCH (09:58)
[2024-11-10] MEDS: hydroCHLOROthiazide 25 MG TAB PO SCH (09:58)
--- NOTE | 2024-11-10 11:52 | Electrocardiogram Report ---
Test Reason : Blood Pressure : */* mmHG Vent. Rate : 76 BPM Atrial Rate : 76 BPM P-R Int : 172 ms QRS Dur : 82 ms QT Int : 392 ms P-R-T Axes : 62 23 62 degrees QTcB Int : 441 ms Sinus rhythm Normal ECG When compared with ECG of 29-Sep-2024 19:19, No significant change Confirmed by Joel Sullivan ([id number]) on 11/10/2024 9:58:27 AM Referred By: Confirmed By: Joel Sullivan
--- NOTE | 2024-11-10 15:16 | Hospitalist Progress Note ---
Date of Service November 10, 2024 Assessment & Plan (1) Chest pain: Plan: Patient is 73 year old male with PMH HTN, HLD, DM II, anxiety, depression, post surgical hypothyroidism, presented to ER with c/o episode of CP today and ongoing fatigue x several months. Today dizziness, diaphoresis and weakness with ambulating, then developed CP while sitting in car lasting approximately an hour and resolving. 10/27/2024 echo: EF: 55-59%. grade I diastolic dysfunction, mild MR, Trace TR Today in ER vitals stable. Negative biofire respiratory panel EKG: sinus rhythm, no acute ST elevation Troponin: 19.1 on admission and did not show any significant increase in elevation with subsequent test CXR: no infiltrate, pneumothorax per my interpretation R/O ACS. Risk factors: HTN, hyperlipidemia, DM, obesity Echo showed- negative wall motion abnormalities, LV systolic function is normal LVEF 55 to 60%, RV is normal in size and function, moderate mitral annular calcification, grade 1 diastolic dysfunction and mildly dilated proximal as cending aorta at 4.1 cm Lipid panel in am- reviewed with triglyceride at 164, continue rosuvastatin In ER given 324mg aspirin. Start daily aspirin Nitro prn CP and repeat EKG for CP Remains free from any pain since this morning Awaiting cardiology evaluation (2) Fatigue: Plan: Ongoing fatigue and generalized weakness episodes 09/2024 negative Lyme and negative anaplasma and Babesia smear Today TSH: 2.5 Obtain B12, folate, Vitamin D, cortisol labs- normal Improved a lot and was advised to drink more fluid (3) HTN (hypertension): Plan: Continue losartan, HCTZ (4) T2DM (type 2 diabetes mellitus): Plan: A1c: 8.0 on 08/21/24 Continue home basal insulin dosed BID. Novolog sliding scale per protocol Hold home oral glycemic agents (5) Post-surgical hypothyroidism: Plan: TSH: 2.5 Continue levothyroxine DVT Prophylaxis Lovenox SQ Admit telemetry Full Code as per discussion with pt Follows with Dr Canales for routine care Admission and Anticipated Discharge Date Admission Date: November 09, 2024 Subjective 11/10/2024 The patient was seen and examined in emergency room He was admitted with chest pain with sweating lasted for about half an hour at home Denies any pain since admission Also noted to have profound weakness but that is being improving Review of Systems Review of Systems: All systems reviewed and are unremarkable except as noted below Physical Exam Physical Exam: Lying in bed without any acute distress Constitutional: well developed, well nourished and + obese; not ill appearing Eyes: PERRL, conjunctivae normal, anicteric sclerae ENMT: external ear and nose normal, oropharynx normal Neck: trachea midline, no thyromegaly Respiratory: no respiratory distress Auscultation: lungs clear to auscultation bilaterally Cardiovascular: Rate/Rhythm: regular rate and regular rhythm; not tachycardic Heart Sounds: normal S1 and normal S2; no murmur Extremities: no edema Gastrointestinal (Abdomen): Inspection/Auscultation: normal bowel sounds; abdomen not distended Percussion/Palpation: abdomen soft; abdomen nontender Musculoskeletal: No acute arthritis involving any of the joint Neurologic: normal touch/pain/proprioception and moves all extremities; no focal motor deficits Lymphatic: no cervical or axillary lymphadenopathy Results & Data Results & Data Vital Signs (Past 12 Hours) Vital Signs Temp Pulse Pulse Resp BP BP BP 11/10/24 14:49 76 11/10/24 14:49 36.8 C 68 18 166/87 H 11/10/24 12:05 82 16 193/93 H 11/10/24 07:27 67 13 161/93 H 11/10/24 07:05 70 11/10/24 04:50 80 15 153/84 H 11/10/24 04:00 77 15 Pulse Ox O2 Del Method 11/10/24 14:49 11/10/24 14:49 95 Room Air 11/10/24 12:05 98 Room Air 11/10/24 07:27 98 Room Air 11/10/24 07:05 11/10/24 04:50 96 Room Air 11/10/24 04:00 Laboratory Results Short CBC 11/09/24 11/10/24 Range/Units 16:21 06:45 WBC 6.73 6.13 (4.8-10.8) K/ul Hgb 14.9 13.9 L (14.0-18.0) g/dl Hct 42.4 39.8 L (42.0-52.0) % Plt Count 236 203 (130-400) K/uL BMP 11/09/24 11/09/24 11/10/24 16:21 17:52 06:45 Sodium 137 140 Potassium TNP 4.5 3.9 Chloride 101 105 Carbon Dioxide 27 29 BUN 14 12 Creatinine 0.95 0.81 Glucose 249 H 123 H Calcium 9.3 8.7 Liver Function 11/09/24 11/09/24 Range/Units 16:21 17:52 Total Bilirubin 1.1 H (0.2-1.0) mg/dl AST TNP 18 ALT 26 (7-52) U/L Alkaline Phosphatase 49 (34-104) U/L Albumin 4.3 (3.4-5.0) gm/dl Medications Administered Current Inpatient Medications Acetaminophen (Acetaminophen 325 Mg Tab) 650 mg PO Q4H PRN PRN Reason: Pain or Fever Stop: 12/09/24 20:41 Aspirin (Aspirin 81 Mg Ectab) 81 mg PO QAM [facility] Stop: 12/10/24 08:59 Last Admin: 11/10/24 09:56 Dose: 81 mg Citalopram Hydrobromide (Citalopram 20 Mg Tab) 20 mg PO DAILY [facility] Stop: 12/10/24 08:59 Last Admin: 11/10/24 09:56 Dose: 20 mg Cyanocobalamin (Cyanocobalamin (B-12) 500 Mcg Tablet) 1,000 mcg PO DAILY [facility] Stop: 12/10/24 08:59 Last Admin: 11/10/24 09:57 Dose: 1,000 mcg Dextrose (Dextrose 50% 50 Ml Syringe) 25 - 50 ml IV UD PRN; Protocol PRN Reason: Hypoglycemia Protocol Stop: 12/09/24 20:41 Enoxaparin Sodium (Enoxaparin Inj 40 Mg/0.4 Ml Syr) 40 mg SQ Q24H [facility] Stop: 12/09/24 20:59 Last Admin: 11/09/24 21:23 Dose: 40 mg Glucagon (Glucagon For Inj 1 Mg Vial) 1 mg SQ UD PRN; Protocol PRN Reason: Hypoglycemia Protocol Stop: 12/09/24 20:41 Glucose (Glucose 40% Gel 15 Gm Tube) 15 - 30 gm PO UD PRN; Protocol PRN Reason: Hypoglycemia Protocol Stop: 12/09/24 20:41 Glucose (Glucose 10 Tab/Tube) 4 - 8 tab PO UD PRN; Protocol PRN Reason: Hypoglycemia Protocol Stop: 12/09/24 20:41 Hydrochlorothiazide (Hydrochlorothiazide 25 Mg Tab) 25 mg PO QAM [facility] Stop: 12/10/24 08:59 Last Admin: 11/10/24 09:58 Dose: 25 mg Insulin Aspart (Insulin Aspart Per Unit Charge) 0 units SC ACHS [facility] Stop: 12/09/24 20:59 Last Admin: 11/10/24 12:03 Dose: Not Given Insulin Glargine (Lantus Per Unit Charge) 0 - 34 units SQ BID [facility] Stop: 12/09/24 20:59 Last Admin: 11/10/24 10:21 Dose: 17 units Levothyroxine Sodium (Levothyroxine Sodium 112 Mcg Tablet) 112 mcg PO DAILYBB [facility] Stop: 12/10/24 06:29 Last Admin: 11/10/24 08:05 Dose: 112 mcg Losartan Potassium (Losartan Potassium 50 Mg Tab) 100 mg PO DAILY [facility] Stop: 12/10/24 08:59 Last Admin: 11/10/24 09:57 Dose: 100 mg Miscellaneous (Carbohydrates For Hypoglycemia ) 15 - 30 gm PO UD PRN PRN Reason: Hypoglycemia Protocol Stop: 12/09/24 20:41 Nitroglycerin (Nitroglycerin Sl 0.4 Mg/Tab Tab) 0.4 mg SL Q5M PRN PRN Reason: Chest Pain Stop: 12/09/24 20:41 Polyethylene Glycol (Polyethylene (Miralax) 17 Gm Pack) 17 gm PO DAILY PRN PRN Reason: Constipation Stop: 12/09/24 20:41 Rosuvastatin Calcium (Rosuvastatin Calcium 10 Mg Tab) 10 mg PO QAM [facility] Stop: 12/10/24 08:59 Last Admin: 11/10/24 09:58 Dose: 10 mg Vitamin D (Cholecalciferol 25 Mcg (1000 Units) Tab) 25 mcg PO DAILY [facility] Stop: 12/10/24 08:59 Last Admin: 11/10/24 09:56 Dose: 25 mcg
--- NOTE | 2024-11-10 18:32 | Cardiology Consultation ---
Date of Consultation November 10, 2024 Assessment & Plan (1) Chest pain: * Resting echocardiogram without regional wall motion abnormality * Patient to remain in hospital for stress testing this admission versus alternative ischemic workup depending upon his progress during this hospital stay. * Continue aspirin, rosuvastatin (2) HTN (hypertension): * Despite subjective dizziness, blood pressure remains high. * Continue outpatient treatment with losartan, HCTZ * Future considerations include adding spironolactone if his potassium is low or amlodipine (3) Dyslipidemia: * Continue outpatient rosuvastatin Case discussed with Dr. Miller for the purpose of coordination of care. History of Present Illness Attending Physician: Tawanna Miller MD History of Present Illness Livan Mayberry is a 73-year-old male seen in cardiology consultation per the request of Oly Mcmahon PA-C for the evaluation of chest discomfort. Patient states that he was grocery shopping with his spouse who accompanies him at the bedside yesterday when he had a "pressure sensation" over his whole body with acute onset of severe debilitating fatigue and then this progressed to chest discomfort. On arrival to the emergency department, with initial vital signs having been obtained on 11/09/2024 at 1609 the patient was hypertensive with blood pressure of 182/96 and had multiple elevated measurements in the meantime. During my assessment the patient was free of chest discomfort. The patient had recently been assessed as a new telemedicine cardiology consultation by the undersigned on 11/02/2024 With recent complaint of progressive fatigue and weakness since the summer 2023 as well as intermittent dizziness. The patient's past medical history is notable for type 2 diabetes mellitus with recent hemoglobin A1c of 8% hypertension and high cholesterol he has a family history of abdominal aortic aneurysm in his mother and uncle. Allergies Allergy/AdvReac Type Severity Reaction Status Date / Time Sulfa (Sulfonamide Allergy Intermediate HIVES Verified 11/09/24 19:32 Antibiotics) exenatide [From [place]] Allergy Unknown Verified 11/09/24 19:32 Home Medications Medication Instructions Recorded Confirmed Type citalopram 20 mg tablet 20 mg PO DAILY 03/26/19 11/09/24 History lancets (DoodleTouch UltraSoft #50 ea 06/17/19 09/04/21 History Lancets) blood sugar diagnostic (DoodleTouch #300 ea 06/20/21 09/04/21 Rx Verio test strips) insulin syringe-needle U-100 0.5 #200 ea 04/13/22 11/09/24 Rx mL 31 gauge x 5/16" (BD Insulin Syringe Ultra-Fine) levothyroxine 112 mcg tablet 112 mcg PO QAM #90 tabs 01/04/23 11/09/24 Rx cholecalciferol (vitamin D3) 25 25 mcg PO DAILY 11/09/24 11/09/24 History mcg (1,000 unit) capsule (Vitamin D3) coQ10 (ubiquinol) 200 mg capsule 200 mg PO DAILY 11/09/24 11/09/24 History cyanocobalamin (vitamin B-12) 1,000 mcg PO DAILY 11/09/24 11/09/24 History 1,000 mcg tablet (Vitamin B-12) hydrochlorothiazide 25 mg tablet 25 mg PO QAM 11/09/24 11/09/24 History icosapent ethyl 1 gram capsule 2 g PO QAM 11/09/24 11/09/24 History insulin degludec 200 unit/mL (3 68 unit subcut QAM 11/09/24 11/09/24 History mL) subcutaneous pen (Tresiba FlexTouch U-200 insulin) losartan 100 mg tablet 100 mg PO DAILY 11/09/24 11/09/24 History metformin 500 mg tablet 1,000 mg PO BIDM 11/09/24 11/09/24 History naproxen sodium 220 mg tablet 440 mg PO BID PRN Pain 11/09/24 11/09/24 History (Aleve) pioglitazone 30 mg tablet 30 mg PO QAM 11/09/24 11/09/24 History rosuvastatin 10 mg tablet 10 mg PO QAM 11/09/24 11/09/24 History Patient History Medical History Depression Basal cell carcinoma Follicular adenocarcinoma of thyroid gland Diabetic foot ulcer Family History Father Diabetes Social History Smoking Status: Former smoker Hx Alcohol Use: No Hx Substance Use: No Preferred Language: Somali Communication Ability: Effective Collection Advisor Required: No Beliefs That Will Affect Care: None marital status: Current Living Situation: Spouse Feels Safe at Home: Yes Assistive Devices: None Review of Systems Review of Systems: All systems reviewed & are unremarkable except as noted in HPI & below Physical Exam Physical Exam: General: no acute distress and stated age Eyes: conjunctiva are pink and non-injected, sclera clear Neck: normal jugular venous pulse, no hepatojugular reflux Chest: normal shape and normal respiratory effort Lungs: clear to auscultation and percussion Cardiac Exam: - regular heart sounds, no murmurs, rubs, or gallops, no jugular venous distention Abdomen: abdomen soft, non-tender, no abnormal masses and no hepatosplenomegaly Musculoskeletal: no gait disturbance, no weakness Extremities: no edema and no cyanosis Neuro:awake, conversant, follows commands, no focal motor deficits Psych: appropriate affect and insight. Results & Data Vital Signs (Past 12 Hours) Vital Signs Temp Pulse Pulse Resp BP BP Pulse Ox 11/10/24 15:50 36.6 C 69 18 144/82 H 94 11/10/24 14:50 11/10/24 14:49 76 11/10/24 14:49 36.8 C 68 18 166/87 H 95 11/10/24 12:05 82 16 193/93 H 98 11/10/24 07:27 67 13 161/93 H 98 11/10/24 07:05 70 O2 Del Method 11/10/24 15:50 Room Air 11/10/24 14:50 Room Air 11/10/24 14:49 11/10/24 14:49 Room Air 11/10/24 12:05 Room Air 11/10/24 07:27 Room Air 11/10/24 07:05 Laboratory Results Cardiac Enzymes 11/09/24 11/10/24 11/10/24 Range/Units 17:52 00:25 06:45 Troponin I High Sens 21.9 H 19.8 24.1 H (0-20) pg/ml Coagulation 11/09/24 Range/Units 17:52 PT 10.7 (9.0-12.0) Seconds APTT 25 (21-31) Seconds Lipids 11/10/24 Range/Units 06:45 Triglycerides 164 H (0-150) mg/dl Cholesterol 105 (0-200) mg/dl HDL Cholesterol 27 mg/dl Cholesterol/HDL Ratio 3.9 (0-5) CBC 11/10/24 Range/Units 06:45 WBC 6.13 (4.8-10.8) K/ul RBC 4.60 L (4.70-6.10) M/uL Hgb 13.9 L (14.0-18.0) g/dl Hct 39.8 L (42.0-52.0) % Plt Count 203 (130-400) K/uL Comprehensive Metabolic Panel 11/10/24 Range/Units 06:45 Sodium 140 (136-145) mmol/L Potassium 3.9 (3.5-5.1) mmol/L Chloride 105 (98-107) mmol/L Carbon Dioxide 29 (21-32) mmol/L BUN 12 (6-23) mg/dl Creatinine 0.81 (0.6-1.4) mg/dl Glucose 123 H (70-99(Fasting)) mg/dl Calcium 8.7 (8.6-10.3) mg/dl Intake and Output 11/10/24 11/10/24 11/10/24 06:59 14:59 22:59 Other: Weight 101.4 kg Weight Measurement Method Built in [facility] Patient Weight 11/11/24 06:59 Weight 101.4 kg Diagnostic Findings EKG performed 11/09/2024 at 1617 and interpret independently revealed normal sinus rhythm at 76 bpm, EKG otherwise normal Most recent outpatient lipid panel had been on 11/20/2023 with total cholesterol 136, HDL 33, LDL 81 mg per
[2024-11-10] MEDS: ACETAMINOPHEN 325 MG TAB PO PRN (20:36)
[2024-11-11 07:20] LABS: Basophils # (auto) 0.04 K/uL (0.00-0.20); Basophils % (auto) 0.7 %; Eosinophils # (auto) 0.19 K/uL (0.00-0.50); Eosinophils % (auto) 3.5 %; Hematocrit (blood only) 41.4 % (42.0-52.0); Hemoglobin 14.2 g/dl (14.0-18.0); Immature Granulocytes # (auto) 0.01 K/uL (0.01-0.20); Immature Granulocytes % (auto) 0.2 %; Lymphocytes # (auto) 1.34 K/uL (1.20-3.40); Lymphocytes % (auto) 24.6 %; Mean Corpuscular Hemoglobin 29.8 pg (25.0-34.0); Mean Corpuscular Hgb Conc 34.3 g/dL (32.0-36.0); Mean Platelet Volume 10.8 fL (9.4-12.4); Neutrophils # (auto) 3.27 K/uL (1.40-6.50); Platelet Count 207 K/uL (130-400); RDW Coefficient of Variation 12.2 % (11.5-14.5); RDW Standard Deviation 39.5 fL (36.4-46.3); Red Blood Count 4.76 M/uL (4.70-6.10); White Blood Count 5.45 K/ul (4.8-10.8)
[2024-11-11 07:25] LABS: BUN Creatinine Ratio 15.8 (10-20); Calcium 8.8 mg/dl (8.6-10.3); Creatinine Clr Calc Pharmacy 85.2 ml/min; Magnesium 1.8 mg/dl (1.7-2.4); Potassium 3.9 mmol/L (3.5-5.1)
--- NOTE | 2024-11-11 14:26 | Hospitalist Progress Note ---
Date of Service November 11, 2024 Assessment & Plan (1) Chest pain: Plan: Patient is 73 year old male with PMH HTN, HLD, DM II, anxiety, depression, post surgical hypothyroidism, presented to ER with c/o episode of CP today and ongoing fatigue x several months. Today dizziness, diaphoresis and weakness with ambulating, then developed CP while sitting in car lasting approximately an hour and resolving. 10/27/2024 echo: EF: 55-59%. grade I diastolic dysfunction, mild MR, Trace TR Today in ER vitals stable. Negative biofire respiratory panel EKG: sinus rhythm, no acute ST elevation Troponin: 19.1 on admission and did not show any significant increase in elevation with subsequent test CXR: no infiltrate, pneumothorax per my interpretation R/O ACS. Risk factors: HTN, hyperlipidemia, DM, obesity Echo showed- negative wall motion abnormalities, LV systolic function is normal LVEF 55 to 60%, RV is normal in size and function, moderate mitral annular calcification, grade 1 diastolic dysfunction and mildly dilated proximal asce nding aorta at 4.1 cm Lipid panel in am- reviewed with triglyceride at 164, continue rosuvastatin In ER given 324mg aspirin. Start daily aspirin Nitro prn CP and repeat EKG for CP Remains free from any pain since this morning Appreciate cardiology input and recommendation Serial cardiac enzymes were not elevated and the EKG today did not show any significant ST-T wave changes He remains free from any chest pain and/or palpitation Will have the stress echo tomorrow Nocturnal desaturation Nocturnal pulse oximetry showed significant desaturation lasting for about 19 minutes He will need oxygen at nighttime and also was advised to have a outpatient polysomnography (2) Fatigue: Plan: Ongoing fatigue and generalized weakness episodes 09/2024 negative Lyme and negative anaplasma and Babesia smear Today TSH: 2.5 Obtain B12, folate, Vitamin D, cortisol labs- normal Improved a lot and was advised to drink more fluid (3) HTN (hypertension): Plan: Continue losartan, HCTZ Blood pressure remains stable and electrolytes are normal (4) T2DM (type 2 diabetes mellitus): Plan: A1c: 8.0 on 08/21/24 Continue home basal insulin dosed BID. Novolog sliding scale per protocol Hold home oral glycemic agents (5) Post-surgical hypothyroidism: Plan: TSH: 2.5 Continue levothyroxine DVT Prophylaxis Lovenox SQ Admit telemetry Full Code as per discussion with pt Follows with Dr Canales for routine care Admission and Anticipated Discharge Date Admission Date: November 09, 2024 Subjective 11/10/2024 The patient was seen and examined in emergency room He was admitted with chest pain with sweating lasted for about half an hour at home Denies any pain since admission Also noted to have profound weakness but that is being improving 11/11/2024 The patient was seen and examined in medical telemetry unit He has been stable and denies any chest pain and/or palpitation He has had nocturnal pulse oximetry and that showed desaturation events more than 19 minutes and most likely he will need oxygen at night Review of Systems Review of Systems: All systems reviewed and are unremarkable except as noted below Physical Exam Physical Exam: Lying in bed without any acute distress Constitutional: well developed, well nourished and + obese; not ill appearing Eyes: PERRL, conjunctivae normal, anicteric sclerae ENMT: external ear and nose normal, oropharynx normal Neck: trachea midline, no thyromegaly Respiratory: no respiratory distress Auscultation: lungs clear to auscultation bilaterally Cardiovascular: Rate/Rhythm: regular rate and regular rhythm; not tachycardic Heart Sounds: normal S1 and normal S2; no murmur Extremities: no edema Gastrointestinal (Abdomen): Inspection/Auscultation: normal bowel sounds; abdomen not distended Percussion/Palpation: abdomen soft; abdomen nontender Neurologic: normal touch/pain/proprioception and moves all extremities; no focal motor deficits Lymphatic: no cervical or axillary lymphadenopathy Results & Data Results & Data Vital Signs (Past 12 Hours) Vital Signs Temp Pulse Pulse Resp BP BP Pulse Ox 11/11/24 11:44 36.8 C 73 20 124/56 L 95 11/11/24 07:43 36.5 C 60 20 149/81 H 97 11/11/24 07:20 64 11/11/24 02:34 36.6 C 67 16 132/69 97 O2 Del Method 11/11/24 11:44 Room Air 11/11/24 07:43 Room Air 11/11/24 07:20 11/11/24 02:34 Room Air Laboratory Results Short CBC 11/11/24 Range/Units 06:44 WBC 5.45 (4.8-10.8) K/ul Hgb 14.2 (14.0-18.0) g/dl Hct 41.4 L (42.0-52.0) % Plt Count 207 (130-400) K/uL BMP 11/11/24 06:44 Sodium 140 Potassium 3.9 Chloride 103 Carbon Dioxide 30 BUN 15 Creatinine 0.95 Glucose 126 H Calcium 8.8 Medications Administered Current Inpatient Medications Acetaminophen (Acetaminophen 325 Mg Tab) 650 mg PO Q4H PRN PRN Reason: Pain or Fever Stop: 12/09/24 20:41 Last Admin: 11/10/24 20:36 Dose: 650 mg Aspirin (Aspirin 81 Mg Ectab) 81 mg PO QAM [facility] Stop: 12/10/24 08:59 Last Admin: 11/11/24 08:33 Dose: 81 mg Citalopram Hydrobromide (Citalopram 20 Mg Tab) 20 mg PO DAILY [facility] Stop: 12/10/24 08:59 Last Admin: 11/11/24 08:33 Dose: 20 mg Cyanocobalamin (Cyanocobalamin (B-12) 500 Mcg Tablet) 1,000 mcg PO DAILY [facility] Stop: 12/10/24 08:59 Last Admin: 11/11/24 08:33 Dose: 1,000 mcg Dextrose (Dextrose 50% 50 Ml Syringe) 25 - 50 ml IV UD PRN; Protocol PRN Reason: Hypoglycemia Protocol Stop: 12/09/24 20:41 Enoxaparin Sodium (Enoxaparin Inj 40 Mg/0.4 Ml Syr) 40 mg SQ Q24H [facility] Stop: 12/09/24 20:59 Last Admin: 11/10/24 20:36 Dose: 40 mg Glucagon (Glucagon For Inj 1 Mg Vial) 1 mg SQ UD PRN; Protocol PRN Reason: Hypoglycemia Protocol Stop: 12/09/24 20:41 Glucose (Glucose 40% Gel 15 Gm Tube) 15 - 30 gm PO UD PRN; Protocol PRN Reason: Hypoglycemia Protocol Stop: 12/09/24 20:41 Glucose (Glucose 10 Tab/Tube) 4 - 8 tab PO UD PRN; Protocol PRN Reason: Hypoglycemia Protocol Stop: 12/09/24 20:41 Hydrochlorothiazide (Hydrochlorothiazide 25 Mg Tab) 25 mg PO QAM [facility] Stop: 12/10/24 08:59 Last Admin: 11/11/24 08:32 Dose: 25 mg Insulin Aspart (Insulin Aspart Per Unit Charge) 0 units SC ACHS [facility] Stop: 12/09/24 20:59 Last Admin: 11/11/24 12:44 Dose: 5 units Insulin Glargine (Lantus Per Unit Charge) 0 - 34 units SQ BID [facility] Stop: 12/09/24 20:59 Last Admin: 11/11/24 09:32 Dose: 17 units Levothyroxine Sodium (Levothyroxine Sodium 112 Mcg Tablet) 112 mcg PO DAILYBB [facility] Stop: 12/10/24 06:29 Last Admin: 11/11/24 05:49 Dose: 112 mcg Losartan Potassium (Losartan Potassium 50 Mg Tab) 100 mg PO DAILY [facility] Stop: 12/10/24 08:59 Last Admin: 11/11/24 08:33 Dose: 100 mg Miscellaneous (Carbohydrates For Hypoglycemia ) 15 - 30 gm PO UD PRN PRN Reason: Hypoglycemia Protocol Stop: 12/09/24 20:41 Nitroglycerin (Nitroglycerin Sl 0.4 Mg/Tab Tab) 0.4 mg SL Q5M PRN PRN Reason: Chest Pain Stop: 12/09/24 20:41 Polyethylene Glycol (Polyethylene (Miralax) 17 Gm Pack) 17 gm PO DAILY PRN PRN Reason: Constipation Stop: 12/09/24 20:41 Rosuvastatin Calcium (Rosuvastatin Calcium 10 Mg Tab) 10 mg PO QAM [facility] Stop: 12/10/24 08:59 Last Admin: 11/11/24 08:33 Dose: 10 mg Vitamin D (Cholecalciferol 25 Mcg (1000 Units) Tab) 25 mcg PO DAILY [facility] Stop: 12/10/24 08:59 Last Admin: 11/11/24 08:32 Dose: 25 mcg (1) Chest pain Chest pain type: unspecified Qualified Code(s): R07.9 - Chest pain, unspecified
--- NOTE | 2024-11-11 23:10 | Electrocardiogram Report ---
Test Reason : Blood Pressure : */* mmHG Vent. Rate : 64 BPM Atrial Rate : 64 BPM P-R Int : 164 ms QRS Dur : 86 ms QT Int : 450 ms P-R-T Axes : 69 20 56 degrees QTcB Int : 464 ms Normal sinus rhythm Normal ECG When compared with ECG of 09-Nov-2024 16:17, No significant change Confirmed by Moy Enriquez [id number]) on 11/11/2024 11:10:26 PM Referred By: REFERRED SELF Confirmed By: Moy Enriquez
[2024-11-12 07:54] VITALS: O2SAT 96
--- NOTE | 2024-11-12 10:43 | Cardiology Progress Note ---
Date of Service November 12, 2024 Assessment & Plan (1) Chest pain: Plan: * Resting echocardiogram without regional wall motion abnormality * Stress echocardiogram negative for ischemia. No symptoms suggestive of angina induced with exercise. * Stress test results are reassuring * Cancel outpatient stress test visit. * Continue aspirin, rosuvastatin (2) HTN (hypertension): Plan: * Although some of his BP reading are high, the overall trend appears stable, reflecting adequate control. * Continue outpatient treatment with losartan, HCTZ-same doses * Future considerations include adding spironolactone if his potassium is low or amlodipine-however given symptoms of fatigue and occasional dizziness, will make no changes. (3) Dyslipidemia: Plan: * Continue outpatient rosuvastatin Has h/o hypothyroidism. TSH stable on 11/09 measurement. Continue present levothyroxine dose. Stable for discharge. Keep plan for outpatient cardio followup. Admission and Anticipated Discharge Date Admission Date: November 11, 2024 Subjective Patient seen in follow up of chest discomfort and generalized fatigue. Telemetry reveals SR in the 60s. Feeling improved without additional chest pain. Review of Systems Review of Systems: All systems reviewed & are unremarkable except as noted in HPI & below Physical Exam Physical Exam: General: no acute distress and stated age Eyes: conjunctiva are pink and non-injected, sclera clear Neck: normal jugular venous pulse, no hepatojugular reflux Chest: normal shape and normal respiratory effort Lungs: clear to auscultation and percussion Cardiac Exam: - regular heart sounds, no murmurs, rubs, or gallops, no jugular venous distention Abdomen: abdomen soft, non-tender, no abnormal masses and no hepatosplenomegaly Musculoskeletal: no gait disturbance, no weakness Extremities: no edema and no cyanosis Neuro:awake, conversant, follows commands, no focal motor deficits Psych: appropriate affect and insight. Results & Data Vital Signs (Past 12 Hours) Vital Signs Temp Pulse Pulse Resp BP Pulse Ox O2 Del Method 11/12/24 07:59 63 11/12/24 07:54 36.4 C L 71 18 149/80 H 96 Room Air 11/12/24 03:05 36.6 C 67 18 127/70 98 Room Air Laboratory Results Intake and Output 11/11/24 11/12/24 11/12/24 22:59 06:59 14:59 Intake Total 200 / 200 Balance 200 / 200 Intake: Oral 200 / 200 Other: Other Intake Source npo Weight 92.7 kg Weight Measurement Method Built in [facility] (1) Chest pain Chest pain type: unspecified Qualified Code(s): R07.9 - Chest pain, unspecified
[2024-11-12 11:47] VITALS: PULSE 99; RESP 20; TEMP 98.2
[2024-11-12 12:35] LABS: Calcium 9.6 mg/dl (8.6-10.3); Potassium 4.5 mmol/L (3.5-5.1)
[2024-11-12 12:42] LABS: Estimated Average Glucose 180 mg/dl; Hemoglobin A1C 7.9 % (4.5-5.6)
--- NOTE | 2024-11-12 13:14 | Hospitalist Progress Note ---
Date of Service November 12, 2024 Assessment & Plan (1) Chest pain: Plan: Patient is 73 year old male with PMH HTN, HLD, DM II, anxiety, depression, post surgical hypothyroidism, presented to ER with c/o episode of CP today and ongoing fatigue x several months. Today dizziness, diaphoresis and weakness with ambulating, then developed CP while sitting in car lasting approximately an hour and resolving. 10/27/2024 echo: EF: 55-59%. grade I diastolic dysfunction, mild MR, Trace TR Today in ER vitals stable. Negative biofire respiratory panel EKG: sinus rhythm, no acute ST elevation Troponin: 19.1 on admission and did not show any significant increase in elevation with subsequent test CXR: no infiltrate, pneumothorax per my interpretation R/O ACS. Risk factors: HTN, hyperlipidemia, DM, obesity Echo showed- negative wall motion abnormalities, LV systolic function is normal LVEF 55 to 60%, RV is normal in size and function, moderate mitral annular calcification, grade 1 diastolic dysfunction and mildly dilated proximal asce nding aorta at 4.1 cm Lipid panel in am- reviewed with triglyceride at 164, continue rosuvastatin In ER given 324mg aspirin. Start daily aspirin Nitro prn CP and repeat EKG for CP Remains free from any pain since this morning Appreciate cardiology input and recommendation Serial cardiac enzymes were not elevated and the EKG today did not show any significant ST-T wave changes He remains free from any chest pain and/or palpitation Will have the stress echo tomorrow Stress echo is negative for any ischemia or any symptoms He will be discharged home this afternoon Nocturnal desaturation Nocturnal pulse oximetry showed significant desaturation lasting for about 19 minutes He will need oxygen at nighttime and also was advised to have a outpatient polysomnography He will need oxygen at a rate of 2 L at nighttime for nocturnal desaturation He was strongly advised to have a sleep study done as an outpatient as soon as possible (2) Fatigue: Plan: Ongoing fatigue and generalized weakness episodes 09/2024 negative Lyme and negative anaplasma and Babesia smear Today TSH: 2.5 Obtain B12, folate, Vitamin D, cortisol labs- normal Improved a lot and was advised to drink more fluid (3) HTN (hypertension): Plan: Continue losartan, HCTZ Blood pressure remains stable and electrolytes are normal (4) T2DM (type 2 diabetes mellitus): Plan: A1c: 8.0 on 08/21/24 Continue home basal insulin dosed BID. Novolog sliding scale per protocol Hold home oral glycemic agents His hemoglobin A1c is 7.9 (5) Post-surgical hypothyroidism: Plan: TSH: 2.5 Continue levothyroxine DVT Prophylaxis Lovenox SQ Admit telemetry Full Code as per discussion with pt Follows with Dr Canales for routine care Admission and Anticipated Discharge Date Admission Date: November 11, 2024 Subjective 11/10/2024 The patient was seen and examined in emergency room He was admitted with chest pain with sweating lasted for about half an hour at home Denies any pain since admission Also noted to have profound weakness but that is being improving 11/11/2024 The patient was seen and examined in medical telemetry unit He has been stable and denies any chest pain and/or palpitation He has had nocturnal pulse oximetry and that showed desaturation events more than 19 minutes and most likely he will need oxygen at night 11/12/2024 The patient was seen and examined in medical telemetry unit He has been doing much better and did not have any more chest pain and/or palpitation Has had negative stress echo and will be discharged home this afternoon Review of Systems Review of Systems: All systems reviewed and are unremarkable except as noted below Physical Exam Physical Exam: Lying in bed without any acute distress Constitutional: well developed, well nourished and + obese; not ill appearing Eyes: PERRL, conjunctivae normal, anicteric sclerae ENMT: external ear and nose normal, oropharynx normal Neck: trachea midline, no thyromegaly Respiratory: no respiratory distress Auscultation: lungs clear to auscultation bilaterally Cardiovascular: Rate/Rhythm: regular rate and regular rhythm; not tachycardic Heart Sounds: normal S1 and normal S2; no murmur Extremities: no edema Gastrointestinal (Abdomen): Inspection/Auscultation: normal bowel sounds; abdomen not distended Percussion/Palpation: abdomen soft; abdomen nontender Neurologic: normal touch/pain/proprioception and moves all extremities; no fo cruzito motor deficits Lymphatic: no cervical or axillary lymphadenopathy Results & Data Results & Data Vital Signs (Past 12 Hours) Vital Signs Temp Pulse Pulse Resp BP Pulse Ox O2 Del Method 11/12/24 11:46 36.8 C 99 H 20 106/69 96 Room Air 11/12/24 07:59 63 11/12/24 07:54 36.4 C L 71 18 149/80 H 96 Room Air 11/12/24 03:05 36.6 C 67 18 127/70 98 Room Air Laboratory Results BMP 11/12/24 12:06 Sodium 139 Potassium 4.5 Chloride 101 Carbon Dioxide 31 BUN 20 Creatinine 1.11 Glucose 154 H Calcium 9.6 Medications Administered Current Inpatient Medications Acetaminophen (Acetaminophen 325 Mg Tab) 650 mg PO Q4H PRN PRN Reason: Pain or Fever Stop: 12/09/24 20:41 Last Admin: 11/12/24 03:18 Dose: 650 mg Aspirin (Aspirin 81 Mg Ectab) 81 mg PO QAM [facility] Stop: 12/10/24 08:59 Last Admin: 11/12/24 08:25 Dose: 81 mg Citalopram Hydrobromide (Citalopram 20 Mg Tab) 20 mg PO DAILY [facility] Stop: 12/10/24 08:59 Last Admin: 11/12/24 08:25 Dose: 20 mg Cyanocobalamin (Cyanocobalamin (B-12) 500 Mcg Tablet) 1,000 mcg PO DAILY [facility] Stop: 12/10/24 08:59 Last Admin: 11/12/24 08:25 Dose: 1,000 mcg Dextrose (Dextrose 50% 50 Ml Syringe) 25 - 50 ml IV UD PRN; Protocol PRN Reason: Hypoglycemia Protocol Stop: 12/09/24 20:41 Enoxaparin Sodium (Enoxaparin Inj 40 Mg/0.4 Ml Syr) 40 mg SQ Q24H [facility] Stop: 12/09/24 20:59 Last Admin: 11/11/24 19:49 Dose: 40 mg Glucagon (Glucagon For Inj 1 Mg Vial) 1 mg SQ UD PRN; Protocol PRN Reason: Hypoglycemia Protocol Stop: 12/09/24 20:41 Glucose (Glucose 40% Gel 15 Gm Tube) 15 - 30 gm PO UD PRN; Protocol PRN Reason: Hypoglycemia Protocol Stop: 12/09/24 20:41 Glucose (Glucose 10 Tab/Tube) 4 - 8 tab PO UD PRN; Protocol PRN Reason: Hypoglycemia Protocol Stop: 12/09/24 20:41 Hydrochlorothiazide (Hydrochlorothiazide 25 Mg Tab) 25 mg PO QAM [facility] Stop: 12/10/24 08:59 Last Admin: 11/12/24 08:25 Dose: 25 mg Insulin Aspart (Insulin Aspart Per Unit Charge) 0 units SC ACHS [facility] Stop: 12/09/24 20:59 Last Admin: 11/12/24 08:47 Dose: Not Given Insulin Glargine (Lantus Per Unit Charge) 0 - 34 units SQ BID [facility] Stop: 12/09/24 20:59 Last Admin: 11/12/24 11:14 Dose: 17 units Levothyroxine Sodium (Levothyroxine Sodium 112 Mcg Tablet) 112 mcg PO DAILYBB [facility] Stop: 12/10/24 06:29 Last Admin: 11/12/24 05:52 Dose: 112 mcg Losartan Potassium (Losartan Potassium 50 Mg Tab) 100 mg PO DAILY [facility] Stop: 12/10/24 08:59 Last Admin: 11/12/24 08:25 Dose: 100 mg Miscellaneous (Carbohydrates For Hypoglycemia ) 15 - 30 gm PO UD PRN PRN Reason: Hypoglycemia Protocol Stop: 12/09/24 20:41 Nitroglycerin (Nitroglycerin Sl 0.4 Mg/Tab Tab) 0.4 mg SL Q5M PRN PRN Reason: Chest Pain Stop: 12/09/24 20:41 Polyethylene Glycol (Polyethylene (Miralax) 17 Gm Pack) 17 gm PO DAILY PRN PRN Reason: Constipation Stop: 12/09/24 20:41 Rosuvastatin Calcium (Rosuvastatin Calcium 10 Mg Tab) 10 mg PO QAM [facility] Stop: 12/10/24 08:59 Last Admin: 11/12/24 08:25 Dose: 10 mg Vitamin D (Cholecalciferol 25 Mcg (1000 Units) Tab) 25 mcg PO DAILY [facility] Stop: 12/10/24 08:59 Last Admin: 11/12/24 08:25 Dose: 25 mcg (1) Chest pain Chest pain type: unspecified Qualified Code(s): R07.9 - Chest pain, unspecified
[2024-11-12 14:31] VITALS: BP 124/56
--- NOTE | 2024-11-13 09:06 | Discharge Summary ---
Date of Service November 13, 2024 Admission HPI Per Admitting Provider Patient is 73 year old male with PMH HTN, HLD, DM II, anxiety, depression, post surgical hypothyroidism, presented to ER with c/o episode of CP today and ongoing fatigue. Patient reports episodes of fatigue, generalized weakness for past couple of months. He states walking up steps feeling more fatigued than usual. Fatigue and weakness has been ongoing. Reports episodes of body feeling heavy. States legs giving out today. States arms feel weak but he is able to hold objects and denies dropping objects. Sometimes feels a little SOB. Today had some anterior chest pain described as burning with some sharp jabs. States the CP is new. Prior to CP was feeling lightheaded after ambulating and felt diaphoretic. CP occurred while sitting in car and lasted approximately an hour and self resolved. States checked BSG and was 200's. reports snores and pt reports has had sleep study approximately 3 year ago without reported sleep apnea. In September was initially treated for possible lyme disease with doxycycline but ultimately Lyme testing was negative and had negative anaplasma and Babesia smear. Patient with cardiac telemedicine visit on 11/02/2024 in which Zio patch and exercise stress echo were to be ordered but not completed yet. Denies fever/chills, diaphoresis, N/V/D/C, SANCHEZ, syncope, vision changes, neck pain, palpitations, cough, rhinorrhea, abdominal pain, paresthesias, extremity edema, rashes, urinary symptoms. 10/27/2024 echo: EF: 55-59%. grade I diastolic dysfunction, mild MR, Trace TR Principal Diagnosis Chest pain, negative stress echo, hypertension, nocturnal desaturation Discharge Exam Lying in bed without any acute distress Constitutional well developed, well nourished and + obese; not ill appearing Eyes PERRL, conjunctivae normal, anicteric sclerae ENMT external ear and nose normal, oropharynx normal Neck trachea midline, no thyromegaly Respiratory no respiratory distress Auscultation: lungs clear to auscultation bilaterally Cardiovascular Rate/Rhythm: regular rate and regular rhythm; not tachycardic Heart Sounds: normal S1 and normal S2; no murmur Extremities: no edema Gastrointestinal (Abdomen) Inspection/Auscultation: normal bowel sounds; abdomen not distended Percussion/Palpation: abdomen soft; abdomen nontender Neurologic normal touch/pain/proprioception and moves all extremities; no focal motor deficits Lymphatic no cervical or axillary lymphadenopathy Discharge Data Allergies Allergy/AdvReac Type Severity Reaction Status Date / Time Sulfa (Sulfonamide Allergy Intermediate HIVES Verified 11/09/24 19:32 Antibiotics) exenatide [From [place]] Allergy Unknown Verified 11/09/24 19:32 Consultations 11/09/24 18:47 ED Decision to Admit Stat 11/09/24 20:42 Consult Cardiology Routine Hospital Course (1) Chest pain: Patient is 73 year old male with PMH HTN, HLD, DM II, anxiety, depression, post surgical hypothyroidism, presented to ER with c/o episode of CP today and ongoing fatigue x several months. Today dizziness, diaphoresis and weakness with ambulating, then developed CP while sitting in car lasting approximately an hour and resolving. 10/27/2024 echo: EF: 55-59%. grade I diastolic dysfunction, mild MR, Trace TR Today in ER vitals stable. Negative biofire respiratory panel EKG: sinus rhythm, no acute ST elevation Troponin: 19.1 on admission and did not show any significant increase in elevation with subsequent test CXR: no infiltrate, pneumothorax per my interpretation R/O ACS. Risk factors: HTN, hyperlipidemia, DM, obesity Echo showed- negative wall motion abnormalities, LV systolic function is normal LVEF 55 to 60%, RV is normal in size and function, moderate mitral annular calcification, grade 1 diastolic dysfunction and mildly dilated proximal ascending aorta at 4.1 cm Lipid panel in am- reviewed with triglyceride at 164, continue rosuvastatin In ER given 324mg aspirin. Start daily aspirin Nitro prn CP and repeat EKG for CP Remains free from any pain since this morning Appreciate cardiology input and recommendation Serial cardiac enzymes were not elevated and the EKG today did not show any significant ST-T wave changes He remains free from any chest pain and/or palpitation Will have the stress echo tomorrow Stress echo is negative for any ischemia or any symptoms He will be discharged home this afternoon Nocturnal desaturation Nocturnal pulse oximetry showed significant desaturation lasting for about 19 minutes He will need oxygen at nighttime and also was advised to have a outpatient polysomnography He will need oxygen at a rate of 2 L at nighttime for nocturnal desaturation He was strongly advised to have a sleep study done as an outpatient as soon as possible (2) Fatigue: Ongoing fatigue and generalized weakness episodes 09/2024 negative Lyme and negative anaplasma and Babesia smear Today TSH: 2.5 Obtain B12, folate, Vitamin D, cortisol labs- normal Improved a lot and was advised to drink more fluid (3) HTN (hypertension): Continue losartan, HCTZ Blood pressure remains stable and electrolytes are normal (4) T2DM (type 2 diabetes mellitus): A1c: 8.0 on 08/21/24 Continue home basal insulin dosed BID. Novolog sliding scale per protocol Hold home oral glycemic agents His hemoglobin A1c is 7.9 (5) Post-surgical hypothyroidism: TSH: 2.5 Continue levothyroxine DVT Prophylaxis Lovenox SQ Admit telemetry Full Code as per discussion with pt Follows with Dr Canales for routine care Total Time Total Time Spent Total Time Spent (In Minutes): 45 minutes Discharge Plan Discharge Items Patient Disposition: Home - Self-Care Reason For Visit: CP Discharge Diagnosis: Chest pain, negative stress echo, hypertension, nocturnal desaturation Condition on Discharge: Good Activity: Resume your previous activity Non-emergency contact: Primary Care Provider Call non-emergency contact if: you have any medication questions and your symptoms worsen Follow-up/Referrals: Cal Canales MD [Primary Care Provider] - (Date & Time 11/13/2024 9:20 AM Provider: Cal Canales MD Department: Family Practice, [facility] ) Diet: Heart Healthy Addtl Attending Provider Instructions: Please take precaution to avoid falls Take your medications as advised including your new medicine aspirin 81 mg daily Try to take Tylenol for pain control and avoid naproxen You will need to continue with oxygen at a rate of 2 L/min at night and please schedule an outpatient sleep study through your PCP Please keep appointments with your healthcare provider Pending Studies at Discharge: No Stand-Alone Forms: My W[facility], Smoking Cessation Medications and DC Order Prescriptions: New aspirin 81 mg Tablet,Delayed Release (Dr/Ec) 81 mg PO QAM Qty: 30 0RF Continued (DME) OneTouch Verio test strips Strip See Dose Instructions .ROUTE .MEDSUPPLY Qty: 300 3RF Rx Instructions: test 3 times daily (DME) insulin syringe-needle U-100 [BD Insulin Syringe Ultra-Fine] 0.5 mL 31 gauge x 5/16" syringe See Rx Instructions .ROUTE .MEDSUPPLY Qty: 200 3RF Rx Instructions: use twice daily levothyroxine 112 mcg tablet 112 mcg PO QAM Qty: 90 0RF (DME) lancets [OneTouch UltraSoft Lancets] misc See Dose Instructions .ROUTE .MEDSUPPLY Qty: 50 Rx Instructions: use to test 3 times a day citalopram 20 mg tablet 20 mg PO DAILY hydrochlorothiazide 25 mg tablet 25 mg PO QAM losartan 100 mg tablet 100 mg PO DAILY icosapent ethyl 1 gram capsule 2 g PO QAM insulin degludec [Tresiba FlexTouch U-200] 200 unit/mL (3 mL) insulin pen 68 unit SUBCUT QAM metformin 500 mg tablet 1,000 mg PO BIDM Rx Instructions: take with morning and evening meals pioglitazone 30 mg tablet 30 mg PO QAM rosuvastatin 10 mg tablet 10 mg PO QAM cyanocobalamin (vitamin B-12) [Vitamin B-12] 1,000 mcg Tablet 1,000 mcg PO DAILY cholecalciferol (vitamin D3) [Vitamin D3] 25 mcg (1,000 unit) Capsule 25 mcg PO DAILY coQ10 (ubiquinol) 200 mg Capsule 200 mg PO DAILY naproxen sodium [Aleve] 220 mg Tablet 440 mg PO BID PRN (Reason: Pain) Discharge Orders: Discharge Order (Routine); Ordered 11/12/24 Ordered By: Tawanna Miller Admission Data Admit Date/Time: 11/11/24 17:21 Attending Provider: Tawanna Miller Admit Provider: Tawanna Miller Primary Care Provider: Cal Canales Other Providers: Rashid Gomez; Ronnie Arriola Other Interventions: Discharge Summary Assessment (RN) Last Done: 11/12/24 14:30
== END 2024-11-12 15:25 | disposition home or self-care (01) | DRG 313 ==
LOC: EDINP 16:07 → ED 16:07 → SUATTDRO 19:03 → 2N 20:42
DX: E66.9 Obesity, unspecified; Z88.2 Allergy status to sulfonamides; I08.1 Rheumatic disorders of both mitral and tricuspid valves; Z79.4 Long term (current) use of insulin; F32.A Depression, unspecified; Z88.8 Allergy status to other drugs, medicaments and biological substances; E78.5 Hyperlipidemia, unspecified; Z79.899 Other long term (current) drug therapy; Z79.890 Hormone replacement therapy; Z79.84 Long term (current) use of oral hypoglycemic drugs; I10 Essential (primary) hypertension; Z68.28 Body mass index [BMI] 28.0-28.9, adult; Z87.891 Personal history of nicotine dependence; R07.89 Other chest pain; E89.0 Postprocedural hypothyroidism; F41.9 Anxiety disorder, unspecified; R53.83 Other fatigue; G47.34 Idiopathic sleep related nonobstructive alveolar hypoventilation; E11.9 Type 2 diabetes mellitus without complications